=== PATIENT | male | born 1965 | race Caucasian/White ===

== ENCOUNTER → 2017-03-26 | Outpatient (CLI) | payer BC ==
[2017-03-26 11:54] LABS: Non-African American GFR(MDRD) 59 (>60 ml/min/1.73 sqM)
--- NOTE | 2017-03-26 14:29 | MR ---
EXAMINATION TYPE: MR lumbar spine wo/w con DATE OF EXAM: 03/26/2017 COMPARISON: NONE HISTORY: Low back pain TECHNIQUE: Multiplanar, multisequence images of the lumbar spine were acquired utilizing 15 mL intravenous Gadav ist gadolinium contrast. Post surgical fixation is seen of L4-L5 with pedicular screws and fixation rods. Grade 1 anterolisthe sis is present of L5 on S1. Type II Modic changes are seen of the endplates of L5-S1. L1-L2: Normal disc appearance without desiccation. No herniation, protrusion or disc bulging. No ca nal stenosis is present. Foramina are patent bilaterally. L2-L3: Small broad-based disc bulge is seen without neural foraminal narrowing or spinal canal stenos is. L3-L4: Small broad-based disc bulge is seen resulting in mild bilateral neural foraminal narrowing an d no evidence of spinal canal stenosis at this level. Minimal ligamentum flavum buckling is appreciat ed. L4-L5: Negative disc remains. A broad-based disc bulge is seen in combination with facet arthropathy resulting in mild bilateral neural foraminal narrowing. L5-S1: Intervertebral disc spacer is appreciated with removal of the [place] disc. At the site of post erior element surgical removal there is a focal area of fibrosis within the subcutaneous soft tissues that enhances measuring 3.1 x 4.0 x 1.6 cm in craniocaudal by transverse by anterior posterior dimen karey. There is extension into the epidural space at this level surrounding the posterior thecal sac a pproximately 180 degrees and abutting the right S1 nerve root without mass effect. This does not exte nd to touch the left S1 nerve root. Evaluation at the level of L4 is limited secondary to susceptibility artifact from hardware, however this does appear to be present at that level. No postsurgical fluid collection is identified. No resi dual or recurrent disc herniation. Paraspinal musculature atrophy is seen in the lower thoracic spine as well as postsurgical scarring in the subcutaneous tissues. IMPRESSION: 1. No residual or recurrent disc herniation. 2. Epidural fibrosis at L5 originating within the subcutaneous tissues at the site of posterior eleme nt removal and extending around the posterior thecal sac approximately 180 degrees abutting the right S1 nerve root without mass effect. 3. Grade 1 anterolisthesis of L5 on S1. 4. Lower paraspinal muscular atrophy.
== END | disposition home or self-care (01) ==
LOC: RADMRIMAIN 11:19
PROVIDERS: ATTEND Internal Medicine
DX: M43.17 Spondylolisthesis, lumbosacral region (principal); G12.8 Other spinal muscular atrophies and related syndromes; G96.19 Other disorders of meninges, not elsewhere classified
CPT/HCPCS: 82565; 72158; A9581

== ENCOUNTER → 2017-06-25 | Outpatient (CLI) | payer BC | END | disposition home or self-care (01) | LOC: LABPAT 14:38 | PROVIDERS: ATTEND Orthopaedic Surgery | DX: Z01.812 Encounter for preprocedural laboratory examination (principal) | CPT/HCPCS: 87070 ==

== ENCOUNTER → 2017-09-30 | Outpatient (CLI) | payer BC ==
[2017-09-30 07:57] LABS: Basophils % (A) 0 %; Eosinophils # (A) 0.3 k/uL (0-0.7); Eosinophils % (A) 4 %; HCT 40.9 % (39.0-53.0); HGB 13.1 gm/dL (13.0-17.5); Lymphocytes # (A) 1.3 k/uL (1.0-4.8); Lymphocytes % (A) 18 %; MCH 26.9 pg (25.0-35.0); Mean Platelet Volume 6.9; Monocytes # (A) 0.3 k/uL (0-1.0); Monocytes % (A) 5 %; Neutrophils # (A) 5.1 k/uL (1.3-7.7); Neutrophils % (A) 71 %; Platelet Count 284 k/uL (150-450); RBC 4.87 m/uL (4.30-5.90); RDW 13.1 % (11.5-15.5); WBC 7.2 k/uL (3.8-10.6)
[2017-09-30 08:02] LABS: INR 1.1 (<1.2); Partial Thromboplastin Time 24.5 sec (22.0-30.0); Prothrombin Time 10.6 sec (9.0-12.0)
[2017-09-30 08:27] LABS: Potassium 4.6 mmol/L (3.5-5.1)
== END | disposition home or self-care (01) ==
LOC: LABPAT 07:05
PROVIDERS: ATTEND Orthopaedic Surgery
DX: Z01.812 Encounter for preprocedural laboratory examination (principal); M16.11 Unilateral primary osteoarthritis, right hip; Z51.81 Encounter for therapeutic drug level monitoring; Z79.01 Long term (current) use of anticoagulants
CPT/HCPCS: 36415; 80051; 85025; 85610; 85730; 87070

== ENCOUNTER 2017-10-07 05:50 | Inpatient (IN) | payer BC ==
[2017-09-27 16:09] VITALS: BMI 46.3
--- NOTE | 2017-10-06 12:35 | HP ---
HISTORY AND PHYSICAL REASON FOR ADMISSION: Surgery scheduled for 10/07/2017 HISTORY OF PRESENT ILLNESS: Porfirio Lora is a 52-year-old patient seen with symptomatic right hip osteoarthritis. After treatment options were discussed, he elected to proceed with direct anterior right total hip arthroplasty. Consent regarding the procedure was obtained. Previous medical clearance had been obtained from his primary care physician, Dr. Coreas. PAST MEDICAL HISTORY: Hypertension. PAST SURGICAL HISTORY: Left total knee arthroplasty, low back surgery. MEDICATIONS: Catapres, Flexeril, Hyzaar, metoprolol, tramadol. ALLERGIES: None reported. SOCIAL HISTORY: A patient currently denies tobacco use. PHYSICAL EVALUATION: Physical examination of his right hip, he has limited range of motion with severe pain. Positive hip impingement sign. Straight leg raise negative. His distal neurovascular exam is intact. RADIOGRAPHS: Right hip radiographs revealed severe osteoarthritis. An MRI of the right hip revealed avascular necrosis as well as osteoarthritis. IMPRESSION: 1. Right hip osteoarthritis. 2. Hypertension. PLAN: Direct anterior right total hip arthroplasty. Surgery scheduled for 10/07/2017. MMODL / IJN: [id number] /
[~2017-10-07 05:50] MED LIST: ACETAMINOPHEN TAB 500 MG TAB PO ONE; DEXAMETHASONE SOD PHOSPHATE 10 MG/ML 1 ML VIAL IV ONE; HYDROmorphone 0.5 MG/0.5 ML SYRINGE IVP PRN; LACTATED RINGERS 1,000 ML IV SCH; MELOXICAM 7.5 MG TAB PO ONE; ONDANSETRON 4 MG/2 ML VIAL IVP ONE; TRANEXAMIC ACID 1,000 MG in SODIUM CHLORIDE 0.9% 50 ML IVPB ONE
[2017-10-07] MEDS ORDERED: LIDOCAINE 1% 20 ML VIAL (10MG/ML) FOR IV START INTRADERMA ONE (06:54)
[2017-10-07] MEDS ORDERED: ROPIVACAINE 246.25 MG, EPINEPHrine 0.5 MG, KETOROLAC 30 MG, cloNIDine HCL/PF 80 MCG, WA... MISCELLANE ONE ×5 (07:25)
[2017-10-07] MEDS ORDERED: LIDOCAINE 1% INJ 10MG/ML (20 ML MDV) ONE (07:29)
[2017-10-07] MEDS ORDERED: PROPOFOL 10 MG/ML 20 ML VIAL IV ONE (07:29)
[2017-10-07] MEDS ORDERED: fentaNYL (PF) 50 MCG/ML 2 ML AMP ONE (07:29)
[2017-10-07] MEDS ORDERED: TRANEXAMIC ACID 1,000 MG/10 ML VIAL ONE (07:29)
[2017-10-07] MEDS ORDERED: SODIUM CHLORIDE 0.9% 100 ML BAG ONE (07:29)
[2017-10-07] MEDS ORDERED: diphenhydrAMINE 50 MG/ML 1 ML VIAL ONE (07:29)
[2017-10-07] MEDS ORDERED: DEXAMETHASONE SOD PHOS (MDV) 100 MG/10 ML VIAL ONE (07:29)
[2017-10-07] MEDS ORDERED: MIDAZOLAM 2 MG/2 ML VIAL ONE (07:29)
[2017-10-07] MEDS ORDERED: ePHEDrine SULFATE/0.9% NACL/PF 50 MG/5 ML SYRINGE IV ONE (07:29)
[2017-10-07] MEDS ORDERED: ONDANSETRON 4 MG/2 ML VIAL ONE (07:29)
[2017-10-07] MEDS ORDERED: ceFAZolin 3,000 MG in SODIUM CHLORIDE 0.9% IRRIGATIO 3,000 ML IRRIGATION ONE (08:15)
[2017-10-07] MEDS ORDERED: LACTATED RINGERS 1,000 ML IV ONE (09:32)
[2017-10-07] MEDS ORDERED: NALOXONE 0.4 MG/ML 1 ML VIAL IV PRN (10:07)
[2017-10-07] MEDS ORDERED: HYDROcodone/APAP 7.5-325MG 1 EACH TAB PO PRN (10:07)
[2017-10-07] MEDS ORDERED: HYDROmorphone 0.5 MG/0.5 ML SYRINGE IVP PRN (10:07)
[2017-10-07] MEDS ORDERED: ONDANSETRON 4 MG/2 ML VIAL IVP PRN (10:07)
[2017-10-07] MEDS ORDERED: hydrOXYzine PAMOATE 25 MG CAP PO PRN (10:07)
[2017-10-07] MEDS ORDERED: MORPHINE SULFATE 4 MG/ML SYRINGE IVP PRN ×3 (10:07→10:20)
--- NOTE | 2017-10-07 10:07 | P.OP ---
Date of Procedure: 10/07/17 Preoperative Diagnosis: Right hip osteoarthritis Postoperative Diagnosis: Right hip osteoarthritis Procedure(s) Performed: Direct anterior right total hip arthroplasty Implants: 1. Depuy Corail KA size 13 standard collar press-fit femoral stem 2. Depuy Corail pinnacle 60 mm press-fit acetabular shell 3. Depuy Corail pinnacle acetabular polyethylene liner neutral 36 mm ID 60 mm OD 4. Biolox delta ceramic femoral head +5 36 mm Anesthesia: local, spinal Surgeon: Marcin Crump Carousel Attendant #1: Tima Vuong Estimated Blood Loss (ml): 300 Pathology: other (Femoral head) Condition: stable Disposition: PACU Indications for Procedure: 52-year-old patient seen with symptomatic right hip osteoarthritis. After having treatment options discussed, he elected to proceed with total hip arthroplasty. Operative Findings: See description of procedure Description of Procedure: The patient was taken to the operative suite. Patient underwent a spinal anesthetic by the department of anesthesia. Patient was then transferred to the [place] table. Patient was given preoperative IV antibiotics and TXA. Both lower extremities were placed in standard leg spars. The hip was then prepped and draped in the normal sterile orthopedic fashion. A standard anterior incision was made beginning 3 cm lateral and 1 cm distal to the ASIS extending 10 cm. Dissection was then carried down through the subcutaneous soft tissues down to the fascia overlying the tensor fascia tao. An incision was now made through the fascia. Careful dissection was taken down exposing the tensor fascia tao muscle. A Cobra retractor was now placed along the medial femoral neck and a second one along the lateral femoral neck. The venous circumflex vessels were now identified, cauterized and clipped. We identified the anterior hip capsule. An incision was made through the hip capsule along the lateral border. Tag sutures were then placed along the anterior capsule and lateral capsule. We then performed a capsulotomy. Retractors were now placed around the femoral neck itself. A Cobra retractor was now placed along the anterior acetabulum. Good exposure was now noted of the femoral head/neck complex. Residual labrum was debrided out. We placed the extremity into 3 turns of fine traction. We were then able to introduce a skid in between the femoral head and acetabulum. A placed a awl into the femoral head. We took 2 turns of traction off the extremity. Rotation was now released. The femoral head was then dislocated without difficulty. Additional releasing was performed of the capsule. The head was then reduced. All traction was released. A femoral neck cut was now made with a sagittal saw. It was completed with an osteotome at the lateral neck area. The femoral head was now removed without difficulty. There was advanced osteoarthritis of both the femoral head and acetabulum. The extremity was now rotated to 60 of external rotation. It was locked in position. Residual labrum was now debrided out. Serial reaming was performed of the acetabulum. Once we reached the appropriate size and a trial was position and fit nicely. The trial was removed and the wound was irrigated with pulse lavage mechanical irrigation. The appropriate size was now chosen opened and made available. It was introduced into the acetabulum without difficulty. The C-arm/fluoroscopy was now brought into the operative field. We made sure we had a true AP pelvic view. We now under direct C-arm/fluoroscopy introduced into the acetabular component with appropriate version and inclination. It was well seated and stable. The C-arm was pulled back. An appropriate liner was introduced and clicked into position. It was felt to be stable. At this point retractors were removed. The extremity was now placed into 120 external rotation with no traction. The leg was now dropped to the ground and adducted. Appropriate retractors were now positioned along the proximal femur. We also placed our femoral look into position. Additional capsular releasing was performed to gain access to the proximal femur. We now used a box osteotome. A canal finder was now utilized. Serial broaching was now performed until we reached the appropriate size with good overall rotational stability. Appropriate calcar planing was performed. A trial head/neck was placed into position. The hip was now reduced. The C-arm/fluoroscopy was brought back into the operative field. A spot film was obtained of the nonoperative hip. A spot film was obtained of the trial components. Overlays were performed, we noted good overall alignment and positioning for determining leg length. The C-arm/ fluoroscopy was pulled back. Retractors were repositioned and the hip was dislocated. The leg was again taken down to the ground and adducted. Appropriate retractors were repositioned as well as the femoral hook. All trial components were removed. The femoral implant was opened along with the femoral head. The wound was irrigated with pulse lavage mechanical irrigation. The femoral implant was introduced with good purchase and fixation noted. The femoral head was introduced with good positioning and fixation noted. Retractors were now removed. The hip was now reduced. There appeared be good positioning of the hip. This was confirmed under fluoroscopy and spot films were obtained to document that. A second gram of TXA was given. Bipolar cautery had been utilized intermittently through the procedure for hemostasis. The wound was irrigated copiously with pulse lavage mechanical irrigation. The soft tissues were infiltrated with local analgesic. The fascia was repaired with Vicryl suture. The subcutaneous soft tissues were repaired in layers with Vicryl suture. The skin was approximated with pernio/Dermabond. Sterile dressings were applied. Patient was then awakened, transferred to a bed and taken to recovery in stable condition. Rambo MCGUIRE assisted with the procedure.
[2017-10-07] MEDS ORDERED: SODIUM CHLORIDE 0.9% 1,000 ML IV ONE (10:45)
[2017-10-07] MEDS: traMADol 50 MG TAB PO SCH ×3 (12:41→22:00)
[2017-10-07] MEDS: LACTATED RINGERS 1,000 ML IV SCH (12:41)
[2017-10-07] MEDS ORDERED: CYCLOBENZAPRINE 10 MG TAB PO PRN (13:12)
[2017-10-07] MEDS ORDERED: ALPRAZolam 1 MG TAB PO PRN (13:12)
[2017-10-07] MEDS ORDERED: SENNOSIDES-DOCUSATE SODIUM 1 EACH TAB PO SCH (21:00)
--- NOTE | 2017-10-07 23:09 | CONS ---
CONSULTATION REASON FOR CONSULTATION: Advice regarding sleep apnea and other medical issues requested by Dr. Crump. HISTORY OF PRESENT ILLNESS: This 52-year-old gentleman with a past history of sleep apnea, history of back pain, history of cholecystitis, anxiety being followed by Dr. Coreas in the outpatient setting underwent direct anterior right total hip joint arthroplasty by Dr. Crump. There is no history of any chest pain, no palpitations, headache, loss of consciousness, nausea and diarrhea, fever, rigors. PAST MEDICAL: Sleep apnea, history of back surgery, cholecystectomy, anxiety, DJD. MEDICATIONS: Prior to admission include home medications: 1. Ultram 50 mg q.6h p.r.n. 2. Naprosyn 500 mg p.o. b.i.d. 3. Lopressor 25 mg p.o. daily. 4. Losartan hydrochlorothiazide 100/25 p.o. daily. 5. [place] 10 mg 1 tablet every 6 hours p.r.n. 6. Flexeril 10 mg daily p.r.n. 7. Aspirin 325 mg daily p.r.n. 8. Xanax 2 mg b.i.d. p.r.n. ALLERGIES: None. FAMILY HISTORY: History of pancreatic cancer in the family. SOCIAL HISTORY: No history of smoking. No history of alcohol intake. REVIEW OF SYSTEMS: ENT: No diminished vision. No diminished hearing. Cardiovascular: No angina or palpitations. Respiratory: No cough or hemoptysis. GI no nausea or vomiting. no dysuria. Nervous system: No numbness, weakness. Allergy/Immunology: No asthma or hayfever. Musculoskeletal as mentioned earlier. HEMATOLOGY/Oncology: No history of anemia. Endocrine: No history of diabetes or hypothyroidism. Constitutional: As mentioned earlier. Dermatology: Negative. Psychiatric: As mentioned earlier. EXAMINATION: Alert and oriented x3. Pulse is 69, blood pressure 111/75, respiratory 20, temp is normal. Pulse ox 98% on 2 L. HEENT is conjunctivae normal. Oral mucosa moist. Neck is no jugular venous distention. No carotid bruit. No lymph node enlargement. Cardiovascular S1-S2 muffled. No S3, no S4. Respiratory: Breath sounds diminished in the bases. No rhonchi and no crackles. ABDOMEN: Soft, nontender. Legs status post surgery. Central nervous system: Higher functions as mentioned earlier. Moves all four extremities. No focal deficits. Lymphatics: No lymph nodes palpable in the neck, axillae or groin. Skin no ulcer, rash or bleeding. LABS: Recently done labs: Creatinine 1.28. Otherwise drug screen is positive for urine, alcohol and benzodiazepines in 2016. ASSESSMENT: 1. Status post right total hip joint arthroplasty. 2. Rule out chronic kidney disease stage 3. 3. History of sleep apnea. 4. History of degenerative joint disease. 5. History of cholecystectomy. 6. History of anxiety. 7. Hypertension. RECOMMENDATIONS AND DISCUSSION: In this 52-year-old gentleman who presented after surgery, at this time I recommend to continue the current medications, continue symptomatic treatment. Otherwise I would recommend resume the home medications. Monitor blood pressure closely. Otherwise I would also recommend repeat labs to rule out the possibility of any active kidney disease at this time. We will follow the patient closely with you and the patient may be asked to follow up with the primary physician closely after discharge. Thank you Dr. Crump for letting us participate in the care of this patient. MMROSAL / JUANN: [id number] /
[2017-10-08] MEDS: LACTATED RINGERS 1,000 ML IV SCH ×2 (01:30→09:15)
[2017-10-08] MEDS: HYDROcodone/APAP 7.5-325MG 1 EACH TAB PO PRN ×2 (01:38→08:15)
[2017-10-08 07:39] VITALS: BP 130/82; PULSE 80; RESP 16; TEMP 98.2
[2017-10-08 07:58] LABS: Basophils % (A) 0 %; Eosinophils % (A) 0 %; HCT 36.2 % (39.0-53.0); HGB 11.8 gm/dL (13.0-17.5); Lymphocytes # (A) 1.1 k/uL (1.0-4.8); Lymphocytes % (A) 7 %; MCH 27.2 pg (25.0-35.0); MCHC 32.6 g/dL (31.0-37.0); MCV 83.6 fL (80.0-100.0); Mean Platelet Volume 7.1; Monocytes # (A) 0.7 k/uL (0-1.0); Monocytes % (A) 4 %; Neutrophils # (A) 12.9 k/uL (1.3-7.7); Neutrophils % (A) 87 %; Platelet Count 317 k/uL (150-450); RBC 4.34 m/uL (4.30-5.90); WBC 14.8 k/uL (3.8-10.6)
--- NOTE | 2017-10-08 08:17 | XR ---
Fluoroscopy INDICATION: Pain FINDINGS: Fluoroscopy time: 35 seconds. Images obtained: 1. IMPRESSIONS: 1. Documentation of fluoroscopy.
[2017-10-08 08:21] LABS: Anion Gap 7 mmol/L; Blood Urea Nitrogen 18 mg/dL (9-20); Calcium 9.5 mg/dL (8.4-10.2); Carbon Dioxide 33 mmol/L (22-30); Chloride 98 mmol/L (98-107); Glucose 132 mg/dL (74-99); Potassium 4.8 mmol/L (3.5-5.1); Sodium 138 mmol/L (137-145)
[2017-10-08] MEDS ORDERED: FAMOTIDINE 20 MG TAB PO SCH (09:00)
[2017-10-08] MEDS ORDERED: ENOXAPARIN 30 MG/0.3 ML SYRINGE SQ SCH (09:00)
[2017-10-08] MEDS ORDERED: MELOXICAM 7.5 MG TAB PO SCH (09:00)
[2017-10-08] MEDS ORDERED: METOPROLOL TARTRATE 25 MG TAB PO SCH (09:00)
[2017-10-08] MEDS ORDERED: LOSARTAN-HCTZ 50-12.5 MG 1 EACH TAB PO SCH (09:00)
[2017-10-08] MEDS: traMADol 50 MG TAB PO SCH ×2 (09:18→13:11)
--- NOTE | 2017-10-08 10:15 | P.DS ---
Providers Date of admission: 10/07/17 05:50 Expected date of discharge: 10/08/17 Attending physician: Marcin Crump Consults: 10/07/17 10:07 Consult Physician Routine Consulting Provider: Pedro Alvarado Consult Reason/Comments: Medical management Do you want consulting provider notified?: Yes Primary care physician: Lyudmila So [facility] Course: Date of admission: 10/07/2017 Date of discharge: 10/08/2017 Admission diagnosis: Status post right total hip arthroplasty Discharge diagnosis: Same Attending physician: Dr. Crump Surgical procedures: Right total hip arthroplasty Brief history: Patient is a 52-year-old male with a history of progressive primary right hip osteoarthritis. At this point patient has failed conservative treatment measures and has opted to proceed with a elective right total hip arthroplasty. Hospital course: Details of patient's surgery can be found in operative report. Patient tolerated the procedure well and was subsequently transported to orthopedic floor. Patient's orthopeidc and medical care was provided daily. Patient had daily laboratory tests performed for evaluation of overall blood counts. Patient had daily physical therapy to include strengthening range of motion as well as education with walker ambulation. Patient was treated with Lovenox for their postoperative DVT prophylaxis during their inpatient stay. Patient was noted to have a relatively uneventful postoperative course. Patient reported satisfactory pain control with oral pain medications by postoperative day 0. Patient showed satisfactory progress with physical therapy. Patient moved steadily through the program and had no difficulty meeting the goals by postoperative day 1. Given patient's otherwise satisfactory course and having met physical therapy goals, plan is to discharge patient home on postoperative day 1. Discharge condition/disposition: Patient will be discharged home in stable condition. Discharge medications: Instructions are given on resumption of patient's normal daily medications per primary care recommendation, in addition patient will be prescribed Xarelto 10 mg. Discharge instructions: 1. Wound care and infection precautions, keep incision dry and covered while showering, no lotions, creams, moisturizers. No soaking, tubs, pools, hottubs. Do not scrub over the incision. 2. Weight-bear as tolerated with walker / cane until follow-up. 3. Ice and elevate when necessary. Do not exceed 20 minutes per hour with ice pack. 4. Utilize compression sleeve until seen at first follow up appointment. 5. Visiting nursing care. 6. Home physical therapy. 7. Pain meds and anticoagulants per prescription. 8. Pain medication has potential to cause constipation. Increase oral fluid and fiber intake. Contact primary care provider if you have not had a bowel movement within 48 hours after discharge 9. No anti-inflammatory medication until discussed at first post operative visit, this including Motrin, Aleve, Mobic, Diclofenac. 10. Follow up in office at 2 weeks postop with Rambo Vuong PA-C 11. Follow up with your primary care doctor 7-10 days after discharge. 12. Contact [facility] with any questions, . Procedures: Right total hip arthroplasty Patient Condition at Discharge: Good Plan - Discharge Summary Discharge Rx Participant: No New Discharge Prescriptions: New Rivaroxaban [Xarelto] 10 mg PO DAILY #28 tab No Action Cyclobenzaprine [Flexeril] 10 mg PO TID PRN PRN Reason: Muscle Spasm Metoprolol Tartrate [Lopressor] 25 mg PO DAILY Losartan/Hydrochlorothiazide [Losartan-Hctz 100-25 mg Tab] 1 tab PO DAILY Aspirin 325 mg PO DAILY Hydrocodone/Acetaminophen [[place] 10-325] 1 - 2 each PO Q6H PRN #60 tab PRN Reason: Pain traMADol HCl [Ultram] 50 mg PO Q6H PRN #40 tab PRN Reason: Pain ALPRAZolam [Xanax] 2 mg PO BID PRN PRN Reason: Anxiety Discharge Medication List Cyclobenzaprine [Flexeril] 10 mg PO TID PRN 02/28/16 [History] Losartan/Hydrochlorothiazide [Losartan-Hctz 100-25 mg Tab] 1 tab PO DAILY [History] Metoprolol Tartrate [Lopressor] 25 mg PO DAILY 02/28/16 [History] Aspirin 325 mg PO DAILY 07/08/17 [History] Hydrocodone/Acetaminophen [[place] 10-325] 1 - 2 each PO Q6H PRN #60 tab 07/09/17 [Rx] traMADol HCl [Ultram] 50 mg PO Q6H PRN #40 tab 07/09/17 [Rx] ALPRAZolam [Xanax] 2 mg PO BID PRN 10/07/17 [History] Rivaroxaban [Xarelto] 10 mg PO DAILY #28 tab 10/08/17 [Rx] Follow up Appointment(s)/Referral(s): [facility], [NON-STAFF] - Judah Coreas MD [Primary Care Provider] - 10/15/17 10:40 am Marcin Crump DO [Doctor of Osteopathic Medicine] - 10/23/17 1:50 pm Patient Instructions/Handouts: Anterior Hip Replacement (DC) Activity/Diet/Wound Care/Special Instructions: Orthopedic Discharge Instructions: 1. Wound care and infection precautions, keep incision dry and covered while showering, no lotions, creams, moisturizers. No soaking, pools, hot tubs. Do not scrub over incision. 2. Weight-bear as tolerated with walker / cane until follow-up. 3. Ice and elevate when necessary. Do not exceed 20 minutes per hour with ice pack. 4. Utilize compression sleeve until seen at first follow up appointment. 5. Visiting nursing care. 6. Home physical therapy. 7. Pain meds and anticoagulants per prescription. 8. Pain medication has potential to cause constipation. Increase oral fluid and fiber intake. Contact primary care provider if you have not had a bowel movement within 48 hours after discharge. 9. No anti-inflammatory medication until discussed at first post operative visit, this including Motrin, Aleve, Mobic, Diclofenac. 10. Follow up in office at 2 weeks postop with Rambo Vuong PA-C 11. Follow up with your primary care doctor 7-10 days after discharge. 12. Contact [facility] with any questions, . Discharge Disposition: HOME WITH HOME HEALTH SERVICES
--- NOTE | 2017-10-08 12:51 | P.PN ---
Subjective Progress Note Date: 10/08/17 Principal diagnosis: Status post right total hip arthroplasty Patient is seen today resting in his hospital bed, he appears comfortable. He was visualized working with physical therapy and ambulating, he is doing very well. He denies any headaches, lightheadedness, chest pain or shortness of breath. Objective - Vital Signs Vital signs: Vital Signs Temp 98.2 F 10/08/17 07:00 Pulse 80 10/08/17 07:00 Resp 16 10/08/17 07:00 BP 130/82 10/08/17 07:00 Pulse Ox 92 L 10/08/17 08:13 Intake & Output 10/07/17 10/08/17 10/08/17 18:59 06:59 18:59 Intake Total 2776 1280 120 Output Total 700 Balance 2076 1280 120 Weight 138.346 kg Intake: IV 2276 640 Lactated Ringers 1,000 ml 640 @ 80 mls/hr IV .[id number] TAD Rx#:[id number] Intake, IV Titration 640 Amount Lactated Ringers 1,000 ml 640 @ 80 mls/hr IV .[id number] TAD Rx#:[id number] Oral 500 120 Output: Urine 400 Estimated Blood Loss 300 Other: Voiding Method Toilet Urinal # Voids 1 - Exam Right lower extremity: Incision is clean, dry, and intact. The prineo tape is in good condition. There is minimal soft tissue swelling and ecchymosis surrounding the medial and lateral aspects of the incision. Calf is soft, no tenderness with palpation. Plantar flexion, dorsiflexion, EHL, FHL are intact. Sensory exam to light touch throughout the extremity is intact, dorsal pedis pulses 2+. - Labs CBC & Chem 7: 10/08/17 07:32 10/08/17 07:32 Labs: Abnormal Lab Results - Last 24 Hours (Table) 10/08/17 10/08/17 Range/Units 07:32 07:32 WBC 14.8 H (3.8-10.6) k/uL Hgb 11.8 L (13.0-17.5) gm/dL Hct 36.2 L (39.0-53.0) % Neutrophils # 12.9 H (1.3-7.7) k/uL Carbon Dioxide 33 H (22-30) mmol/L Glucose 132 H (74-99) mg/dL Assessment and Plan Plan: Assessment: 1. Postop day 1 status post right total hip arthroplasty Plan: 1. Pain control, continue on oral medication 2. GI and DVT prophylaxis, we'll discharge home on Xarelto 10 mg once a day 3. Daily dressing changes/ice the hip 4. Home therapy and nursing after discharge 5. Medical recommendations 6. Discharge planning: Patient will be discharged home today Time with Patient: Less than 30
--- NOTE | 2017-10-09 19:02 | P.PN ---
Subjective Progress Note Date: 10/08/17 Progress note being dictated for Dr. Armas Interval history: This a 52-year-old gentleman status post right total hip joint arthroplasty. Continues to do well. Up with physical therapy. Denies lightheadedness dizziness or focal deficits. Good diet intake with no nausea vomiting. No bowel movement. Passing flatus. Blood pressure controlled. Denies chest pain, palpitations or increasing shortness of breath. Pain controlled. Objective - Vital Signs Vital signs: Vital Signs Temp 98.2 F 10/08/17 07:00 Pulse 80 10/08/17 07:00 Resp 16 10/08/17 07:00 BP 130/82 10/08/17 07:00 Pulse Ox 92 L 10/08/17 08:13 Intake & Output 10/07/17 10/08/17 10/08/17 18:59 06:59 18:59 Intake Total 2776 1280 120 Output Total 700 Balance 2076 1280 120 Weight 138.346 kg Intake: IV 2276 640 Lactated Ringers 1,000 ml 640 @ 80 mls/hr IV .[id number] TAD Rx#:[id number] Intake, IV Titration 640 Amount Lactated Ringers 1,000 ml 640 @ 80 mls/hr IV .[id number] TAD Rx#:[id number] Oral 500 120 Output: Urine 400 Estimated Blood Loss 300 Other: Voiding Method Toilet Urinal # Voids 1 - Exam PHYSICAL EXAM: VITAL SIGNS: As above GENERAL: Sitting up in chair, no acute distress HEENT: Conjunctivae normal. eyes normal. Oral mucosa moist NECK: No JVD. No thyroid enlargement. No LNs CARDIOVASCULAR: S1, S2 muffled. No murmur RESPIRATION: Breath sounds diminished in the bases. No rhonchi or crackles. No bronchial breathing. ABDOMEN: Soft, nontender . No guarding. no masses palpable.Bowel sounds heard. LEGS: Status post surgery PSYCHIATRY: Alert and oriented -3, mood and affect normal. NERVOUS SYSTEM: Cranial N 2-12 grossly normal. Moves all 4 limbs. No focal deficits Skin: no ulcer no rash - Labs CBC & Chem 7: 10/08/17 07:32 10/08/17 07:32 Labs: Abnormal Lab Results - Last 24 Hours (Table) 10/08/17 10/08/17 Range/Units 07:32 07:32 WBC 14.8 H (3.8-10.6) k/uL Hgb 11.8 L (13.0-17.5) gm/dL Hct 36.2 L (39.0-53.0) % Neutrophils # 12.9 H (1.3-7.7) k/uL Carbon Dioxide 33 H (22-30) mmol/L Glucose 132 H (74-99) mg/dL Assessment and Plan Assessment: 1. Status post right total hip arthroplasty 2. Rule out chronic kidney disease stage III, further workup outpatient with PCP 3. Sleep apnea 4. Degenerative joint disease 5. Hypertension Plan: Continue on current medication regime ,monitoring and symptomatic treatment. Pain management and anticoagulation as per orthopedics. Discharge planning in progress as per orthopedic surgery today. Follow-up with PCP in 1 week. Repeat labs outpatient to rule out possibility of any active kidney disease. Further recommendations to follow. The impression and plan of care has been dictated as directed. : I performed a history and examination of this patient, discussed the same with the dictator. I agree with the dictator's note ,documented as a scribe. Any additional findings or plans will be noted.
== END 2017-10-08 13:44 | disposition home health service (06) | DRG 470 ==
LOC: 2ORMAIN 05:50 → 3SUR 10:05
PROVIDERS: ADMIT Orthopaedic Surgery; ATTEND Orthopaedic Surgery
PROC: 0SR904A Replacement of Right Hip Joint with Ceramic on Polyethylene Synthetic Substitute, Uncemented, Open Approach (ICD-10-PCS; principal; 2017-10-07 07:30)
DX: M16.11 Unilateral primary osteoarthritis, right hip (principal); M87.9 Osteonecrosis, unspecified; G47.30 Sleep apnea, unspecified; I10 Essential (primary) hypertension; Z80.0 Family history of malignant neoplasm of digestive organs; Z90.49 Acquired absence of other specified parts of digestive tract; Z96.652 Presence of left artificial knee joint; Z79.82 Long term (current) use of aspirin; Z79.891 Long term (current) use of opiate analgesic; Z79.899 Other long term (current) drug therapy; F41.9 Anxiety disorder, unspecified; R94.4 Abnormal results of kidney function studies
CPT/HCPCS: 73501; 80048; 85025; 86850; 86900; 86901; 88300; 94760

== ENCOUNTER → 2018-03-17 | Outpatient (CLI) | payer BC ==
[2018-03-17 13:23] VITALS: PULSE 91; RESP 16
[2018-03-17 13:24] VITALS: BP 181/99
--- NOTE | 2018-03-17 14:32 | P.PAINCN ---
History of Present Illness - Reason for Consult Consult date: 03/17/18 - History of Present Illness This is 53 years old male with a chronic history of severe low back, pain started more than 15 years ago, and he had lumbar laminectomy and fusion surgery , and he did fairly well until 2 years ago, he started complaining of severe low back pain, with radiation to the lower extremity associated with numbness and tingling sensation, he had another lumbar laminectomy and fusion surgery done 2 years, and he reported that he had no benefit from the surgery, the pain is continuous and increases with any activity, radiated to the right buttock area and also associated with numbness and tingling in the lower extremities, he denies any motor or sensory deficits he denies any change in the movement on urination, and no fever or night sweats, currently is getting pain medication from his primary care, and the current pain medication helping to some degree, but the pain interfering with his quality of life, he denies any side effects of the medication Past Medical History Past Medical History: Hypertension, Sleep Apnea/CPAP/BIPAP Additional Past Medical History / Comment(s): HE ALSO HAS HX OF INTERMITTENT HEAVY L SIDED CHEST PAIN X 1 WEEK WITH DIAPHORESIS AND EPISODES OF SOB. PT HAS A CPAP MACHINE AT HOME WHICH HE HAS NOT USED IN 7-8 YRS BECAUSE HE LOST ALOT OF WT AND FELT IT WAS NO LONGER NEEDED.. HE HAS BEEN NOTICING MORE ISSUES RE HIS SLEEP APNEA RECENTLY AND HIS PHYSICIAN IS HAVING HIM DO SLEEP STUDIES AGAIN. PT HAD AN TN 9 YRS AGO. Last Myocardial Infarction Date:: 2004 History of Any Multi-Drug Resistant Organisms: None Reported Past Surgical History: Back Surgery, Cholecystectomy, Orthopedic Surgery Additional Past Surgical History / Comment(s): CARDIAC CATH 9 YRS AGO AND UNABLE TO PERFORM PTCA BECAUSE OF LESION POSITION SO HE WAS TX MEDICALLY. HE IS A PT OF DR. DAVENPORT. Left Total Knee - June 2017. Right Total Hip - September. Back surgery x 2 - 15 years ago and January 2016 Past Anesthesia/Blood Transfusion Reactions: Postoperative Nausea & Vomiting ( PONV) Additional Past Anesthesia/Blood Transfusion Reaction / Comm: NEVER RECIEVED BLOOD. Past Psychological History: Anxiety Smoking Status: Never smoker Past Alcohol Use History: None Reported Past Drug Use History: None Reported - Past Family History Father Family Medical History: Cancer Additional Family Medical History / Comment(s): FATHER IN HIS 50'S OF UNKNOWN CAUSES. Mother Family Medical History: Cancer Additional Family Medical History / Comment(s): MOTHER OF PANCREATIC CA IN HER 50'S Brother(s) Family Medical History: Diabetes Mellitus Sister(s) Family Medical History: Cancer Additional Family Medical History / Comment(s): BREAST CA. Medications and Allergies Home Medications Medication Instructions Recorded Confirmed Type Cyclobenzaprine [Flexeril] 10 mg PO TID 02/28/16 03/17/18 History Losartan/Hydrochlorothiazide 1 tab PO DAILY 02/28/16 03/17/18 History [Losartan-Hctz 100-25 mg Tab] ALPRAZolam [Xanax] 2 mg PO BID PRN 10/07/17 03/17/18 History Hydrocodone/Acetaminophen [[place] 1 - 2 each PO TID 03/17/18 03/17/18 History 10-325] busPIRone HCL [Buspar] 7.5 mg PO BID PRN 03/17/18 03/17/18 History traMADol HCl [Ultram] 50 mg PO BID 03/17/18 03/17/18 History Allergies Allergy/AdvReac Type Severity Reaction Status Date / Time No Known Allergies Allergy Verified 03/17/18 12:58 Physical Exam Vitals: Vital Signs Pulse Resp BP Pulse Ox 03/17/18 13:05 91 16 181/99 97 Intake and Output 03/16/18 03/17/18 03/17/18 22:59 06:59 14:59 Other: Weight 141.067 kg Social history : not smoker , NO ETOH , NO Illegal drugs use . Review of Systems : 1- Constitutional : no chills , no fever , no night sweats , 2- Ears : no ear discharge , no change in hearing 3-Nose, Mouth ,Throat ; no bleeding gums, no sore throat , no epistaxis , 4-Cardiovascular : Denies chest pain, , no orthopnea , no palpitation 5-Respiratory : Denies cough , no dyspnea , no hemoptysis 6-Gastrointestinal :, no change in bowel habits , no coffee- ground emesis . 7-Genitourinary : No hematuria , no discharge , no incontinence, 8-Musculoskeletal : No gait dysfunction , report low back pain , 9- Neurological : no ataxia , no tremor , no sezure , 10-Psychatric , no suicidal ideation no hallucination 11- Endocrine : no cold intolerence , no polyuria , no polydypsia , 12-Hematologic : no easy bleeding , no easy brusing , 13-Allergic / immunology : no angioedema , no wheezing ,no allergic rhinitis 14-Integumentary : no brttle nails , no change hair / nails , no foot/leg ulcers . Physical Examinations : 1-Constitutional : Cooperative , not in acute distress . 2-HEENT : nech ; supple , no Lymphadenopathy , no Thyromegaly , :eyes , no icterus, no photophobia . ENT : , normal oropharynx , no Thrush 3- Respiratory : Chest clear to auscultations Bilaterally , no wheezing . 4- Cardiovascular : regular rate and rhythem , S1 , S2 , no S3 , no S4. 5- Gastrointestinal: abdomen soft no tenderness , no organomegally . 6- Genitourinary : Defferred . 7-Integumentary : No cellulitis , no ulcers , normal skin turgor , no cyanotic . 8- neurologic : Cranial nerve II to XII intact , no focal neurological deffecit 9-psychatric : alert , oriented X 3 , appropriate affect , intact judgment and insight . 10-Lymphatic : no Lymphadenopathy. 11- musculoskeltal: normal gait Lumber spine moter stegnth lower extremities ,thigh and legs 5/5 Right side , 5/5 Left side deep tendon reflexes : normal Knee Jerk , normal ankle Jerk positive lumber facet Loading Test Range of motion of the lumbar spine Flexion 30 degrees, extension 10 degrees strait leg raising test , positive at degree Fabere test positive RT and positive LT . Sever tenderness over the Sacroiliac joint on the R sides Results Comments: MRI of the lumbar spine multilevel lumbar fusion Assessment and Plan Plan: Assessment and plan= 1-right sacroiliitis. 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 Patient could benefit from right-sided sacroiliac joint steroid injection x2 with reevaluation after second injection, if he continue to have pain, then we will consider doing a caudal epidural with lysis of epidural adhesions Patient could benefit from Lyrica 50 mg twice a day. Time with Patient: Greater than 30 PQRS Measure Charge Sheet Measure #130: Documentation of Current Meds in Medical Chart: Patient's medications documented in chart Measure #226: Tobacco Use: Screen & Cessation Intervention: Pt not a tobacco user Measure #111: Pneumonia Vaccination: Pneumococcal vaccine NOT administered or previously given Measure #47: Advance Care Plan: Advance care planning discussed & documented, pt chose/unable to give Measure #412: Opioid Treatment Agreement: No documentation of signed opioid treatment agreement Measure #408: Opioid Therapy Follow-up Evaluation: Patient had NO f/u eval minimum every 3 months during opioid therapy Measure #317: Preventitive Care & Scrn High Bld Press & F/U: Pre-hypertensive or hypertensive BP documented, pt will f/u with PCP Measure #128: Body Mass Index (BMI) Screening & Follow-up: BMI documented ABOVE normal parameters - f/u documented Measure #131: Pain Assessment & Follow-up: Pain positive & plan documented, Follow-up scheduled Measure #431: Unhealthy Alcohol Use Preventative Care & Scrn: Patient not identified as an unhealthy alcohol user PQRS Narrative: Smoking Status Never smoker Do You Want the Pneumonia No Vaccine AT THIS TIME? Blood Pressure 181/99 Pain Intensity [Bilateral 5 Lower Back] Scale Used Numeric (1 - 10) Hx Alcohol Use (MH) Yes: occasional beer Home Medications: Ambulatory Orders Cyclobenzaprine [Flexeril] 10 mg PO TID 02/28/16 Losartan/Hydrochlorothiazide [Losartan-Hctz 100-25 mg Tab] 1 tab PO DAILY ALPRAZolam [Xanax] 2 mg PO BID PRN 10/07/17 Hydrocodone/Acetaminophen [[place] 10-325] 1 - 2 each PO TID 03/17/18 busPIRone HCL [Buspar] 7.5 mg PO BID PRN 03/17/18 traMADol HCl [Ultram] 50 mg PO BID 03/17/18
== END | disposition home or self-care (01) ==
LOC: PNWHC3 12:50
PROVIDERS: ATTEND Specialist
DX: M96.1 Postlaminectomy syndrome, not elsewhere classified (principal); M46.1 Sacroiliitis, not elsewhere classified; I10 Essential (primary) hypertension; F41.9 Anxiety disorder, unspecified; Z90.49 Acquired absence of other specified parts of digestive tract; Z79.899 Other long term (current) drug therapy; Z79.891 Long term (current) use of opiate analgesic; Z98.890 Other specified postprocedural states
CPT/HCPCS: 99211

== ENCOUNTER 2018-03-21 18:16 | Inpatient (IN) | payer BC ==
[2018-03-21 18:43] LABS: Basophils # (A) 0.1 k/uL (0-0.2); Basophils % (A) 1 %; Eosinophils # (A) 0.3 k/uL (0-0.7); Eosinophils % (A) 3 %; HCT 46.7 % (39.0-53.0); Lymphocytes # (A) 1.8 k/uL (1.0-4.8); Lymphocytes % (A) 16 %; MCH 27.1 pg (25.0-35.0); MCHC 32.2 g/dL (31.0-37.0); MCV 84.4 fL (80.0-100.0); Mean Platelet Volume 6.8; Monocytes # (A) 0.5 k/uL (0-1.0); Monocytes % (A) 4 %; Neutrophils # (A) 8.6 k/uL (1.3-7.7); Neutrophils % (A) 75 %; Platelet Count 290 k/uL (150-450); RBC 5.54 m/uL (4.30-5.90); RDW 15.6 % (11.5-15.5); WBC 11.4 k/uL (3.8-10.6)
--- NOTE | 2018-03-21 18:45 | ED ---
General Adult HPI - General Chief complaint: Chest Pain Stated complaint: Chest Pain Time Seen by Provider: 03/21/18 18:19 Source: patient, EMS, RN notes reviewed, old records reviewed Mode of arrival: EMS Limitations: no limitations - History of Present Illness Initial comments: 53-year-old presenting for evaluation of left-sided chest pain and generally feeling unwell. Symptoms have been over the past 5 days. His had some nausea, no significant vomiting. Describes left-sided chest pain. He also describes some lightheadedness. Patient does have history of CAD status post PR approximately 10 years ago. Denies significant abdominal pain or denies fever or chills. Denies cough. He has had some dyspnea. Denies lower extremity swelling or edema. Patient also states that his thought processes not being clear he's felt somewhat confused and cloudy. Patient given aspirin and nitroglycerin by EMS prior to arrival - Related Data Home Medications Medication Instructions Recorded Confirmed Cyclobenzaprine [Flexeril] 10 mg PO TID 02/28/16 03/21/18 Losartan/Hydrochlorothiazide 1 tab PO DAILY 02/28/16 03/21/18 [Losartan-Hctz 100-25 mg Tab] ALPRAZolam [Xanax] 2 mg PO BID PRN 10/07/17 03/21/18 Hydrocodone/Acetaminophen [[place] 1 tab PO TID PRN 03/17/18 03/21/18 10-325] traMADol HCl [Ultram] 50 mg PO BID 03/17/18 03/21/18 Allergies Allergy/AdvReac Type Severity Reaction Status Date / Time No Known Allergies Allergy Verified 03/21/18 18:35 Review of Systems ROS Statement: Those systems with pertinent positive or pertinent negative responses have been documented in the HPI. ROS Other: All systems not noted in ROS Statement are negative. Past Medical History Past Medical History: Hypertension, Myocardial Infarction (PR), Sleep Apnea/CPAP /BIPAP Additional Past Medical History / Comment(s): HE ALSO HAS HX OF INTERMITTENT HEAVY L SIDED CHEST PAIN X 1 WEEK WITH DIAPHORESIS AND EPISODES OF SOB. PT HAS A CPAP MACHINE AT HOME WHICH HE HAS NOT USED IN 7-8 YRS BECAUSE HE LOST ALOT OF WT AND FELT IT WAS NO LONGER NEEDED.. HE HAS BEEN NOTICING MORE ISSUES RE HIS SLEEP APNEA RECENTLY AND HIS PHYSICIAN IS HAVING HIM DO SLEEP STUDIES AGAIN. PT HAD AN PR 9 YRS AGO. Last Myocardial Infarction Date:: 2004 History of Any Multi-Drug Resistant Organisms: None Reported Past Surgical History: Back Surgery, Cholecystectomy, Orthopedic Surgery Additional Past Surgical History / Comment(s): CARDIAC CATH 9 YRS AGO AND UNABLE TO PERFORM PTCA BECAUSE OF LESION POSITION SO HE WAS TX MEDICALLY. HE IS A PT OF DR. DAVENPORT. Left Total Knee - June 2017. Right Total Hip - September. Back surgery x 2 - 15 years ago and January 2016 Past Anesthesia/Blood Transfusion Reactions: Postoperative Nausea & Vomiting ( PONV) Additional Past Anesthesia/Blood Transfusion Reaction / Comment(s): NEVER RECEIVED BLOOD. Past Psychological History: Anxiety Smoking Status: Never smoker Past Alcohol Use History: Occasional Past Drug Use History: None Reported - Past Family History Father Family Medical History: Cancer Additional Family Medical History / Comment(s): FATHER IN HIS 50'S OF UNKNOWN CAUSES. Mother Family Medical History: Cancer Additional Family Medical History / Comment(s): MOTHER OF PANCREATIC CA IN HER 50'S Brother(s) Family Medical History: Diabetes Mellitus Sister(s) Family Medical History: Cancer Additional Family Medical History / Comment(s): BREAST CA. General Exam Limitations: no limitations General appearance: alert, in no apparent distress Head exam: Present: atraumatic, normocephalic Eye exam: Present: normal appearance, PERRL ENT exam: Present: normal exam, normal oropharynx Neck exam: Present: normal inspection. Absent: tenderness, meningismus Respiratory exam: Present: normal lung sounds bilaterally. Absent: respiratory distress, wheezes Cardiovascular Exam: Present: regular rate, normal rhythm GI/Abdominal exam: Present: soft. Absent: distended, tenderness, guarding Extremities exam: Present: normal inspection, normal capillary refill. Absent: pedal edema, calf tenderness Neurological exam: Present: alert, oriented X3, CN II-XII intact. Absent: motor sensory deficit Skin exam: Present: warm, intact, diaphoretic. Absent: cyanosis Course Vital Signs 03/21/18 03/21/18 03/21/18 18:19 18:24 19:09 Temperature 98.7 F 99.0 F Pulse Rate 105 H 98 92 Respiratory 18 18 18 Rate Blood Pressure 122/62 122/62 127/70 O2 Sat by Pulse 94 L 93 L 95 Oximetry 03/21/18 03/21/18 20:07 21:32 Temperature Pulse Rate 88 94 Respiratory 18 18 Rate Blood Pressure 124/67 132/76 O2 Sat by Pulse 95 95 Oximetry EKG Findings - EKG Comments: EKG Findings:: EKG: Sinus rhythm, left extremity deviation, right bundle branch block, rate of 99, W[place] interval 148, QRS duration 164, QTC 406, no ST segment elevation Medical Decision Making - Medical Decision Making 53-year-old male presents with 5 days of bilateral upper chest pain. Pain as described as atypical. However patient has had previous PR and he has significant risk factors. EKG shows right bundle branch block, this is new compared to old EKG. Workup in the emergency department reveals normal chest x- ray, white blood cell count mildly elevated 11.4, hemoglobin is 15 which is stable. D-dimer is elevated and CT angiography is obtained. This is negative for pulmonary embolism. There is a 4 x 1 cm thoracic aneurysm. Electrolytes reveal some mild hyponatremia and hypokalemia. Potassium is replaced. Initial troponin is negative. Patient will be For serial cardiac enzymes and cardiology consultation given his risk factors. He is placed in observation on telemetry. - Lab Data Result diagrams: 03/21/18 18:27 03/21/18 18:27 Lab Results 03/21/18 03/21/18 03/21/18 Range/Units 18:27 18:27 18:27 WBC 11.4 H (3.8-10.6) k/uL RBC 5.54 (4.30-5.90) m/uL Hgb 15.0 (13.0-17.5) gm/dL Hct 46.7 (39.0-53.0) % MCV 84.4 (80.0-100.0) fL MCH 27.1 (25.0-35.0) pg MCHC 32.2 (31.0-37.0) g/dL RDW 15.6 H (11.5-15.5) % Plt Count 290 (150-450) k/uL Neutrophils % 75 % Lymphocytes % 16 % Monocytes % 4 % Eosinophils % 3 % Basophils % 1 % Neutrophils # 8.6 H (1.3-7.7) k/uL Lymphocytes # 1.8 (1.0-4.8) k/uL Monocytes # 0.5 (0-1.0) k/uL Eosinophils # 0.3 (0-0.7) k/uL Basophils # 0.1 (0-0.2) k/uL PT (9.0-12.0) sec INR (<1.2) APTT (22.0-30.0) sec D-Dimer (<0.60) mg/L FEU Sodium 134 L (137-145) mmol/L Potassium 3.2 L (3.5-5.1) mmol/L Chloride 95 L (98-107) mmol/L Carbon Dioxide 27 (22-30) mmol/L Anion Gap 12 mmol/L BUN 16 (9-20) mg/dL Creatinine 0.90 (0.66-1.25) mg/dL Est GFR (CKD-EPI)AfAm >90 (>60 ml/min/1.73 sqM) Est GFR (CKD-EPI)NonAf >90 (>60 ml/min/1.73 sqM) Glucose 170 H (74-99) mg/dL Calcium 9.5 (8.4-10.2) mg/dL Magnesium 1.7 (1.6-2.3) mg/dL Total Bilirubin 1.2 (0.2-1.3) mg/dL AST 34 (17-59) U/L ALT 52 (21-72) U/L Alkaline Phosphatase 72 (38-126) U/L Total Creatine Kinase 137 (55-170) U/L CK-MB (CK-2) 1.7 (0.0-2.4) ng/mL CK-MB (CK-2) Rel Index 1.2 Troponin I <0.012 (0.000-0.034) ng/mL NT-Pro-B Natriuret Pep pg/mL Total Protein 7.8 (6.3-8.2) g/dL Albumin 4.1 (3.5-5.0) g/dL 03/21/18 03/21/18 Range/Units 18:27 18:27 WBC (3.8-10.6) k/uL RBC (4.30-5.90) m/uL Hgb (13.0-17.5) gm/dL Hct (39.0-53.0) % MCV (80.0-100.0) fL MCH (25.0-35.0) pg MCHC (31.0-37.0) g/dL RDW (11.5-15.5) % Plt Count (150-450) k/uL Neutrophils % % Lymphocytes % % Monocytes % % Eosinophils % % Basophils % % Neutrophils # (1.3-7.7) k/uL Lymphocytes # (1.0-4.8) k/uL Monocytes # (0-1.0) k/uL Eosinophils # (0-0.7) k/uL Basophils # (0-0.2) k/uL PT 12.1 H (9.0-12.0) sec INR 1.3 H (<1.2) APTT 23.2 (22.0-30.0) sec D-Dimer 0.92 H (<0.60) mg/L FEU Sodium (137-145) mmol/L Potassium (3.5-5.1) mmol/L Chloride (98-107) mmol/L Carbon Dioxide (22-30) mmol/L Anion Gap mmol/L BUN (9-20) mg/dL Creatinine (0.66-1.25) mg/dL Est GFR (CKD-EPI)AfAm (>60 ml/min/1.73 sqM) Est GFR (CKD-EPI)NonAf (>60 ml/min/1.73 sqM) Glucose (74-99) mg/dL Calcium (8.4-10.2) mg/dL Magnesium (1.6-2.3) mg/dL Total Bilirubin (0.2-1.3) mg/dL AST (17-59) U/L ALT (21-72) U/L Alkaline Phosphatase (38-126) U/L Total Creatine Kinase (55-170) U/L CK-MB (CK-2) (0.0-2.4) ng/mL CK-MB (CK-2) Rel Index Troponin I (0.000-0.034) ng/mL NT-Pro-B Natriuret Pep 52 pg/mL Total Protein (6.3-8.2) g/dL Albumin (3.5-5.0) g/dL Disposition Clinical Impression: Chest pain Disposition: ADMITTED IP TO THIS [facility] Condition: Stable Is patient prescribed a controlled substance at d/c from ED?: No Referrals: Judah Coreas MD [Primary Care Provider] - 1-2 days Decision to Admit Reason: Admit from EC Decision Date: 03/21/18 Decision Time: 21:20
[2018-03-21 18:56] LABS: INR 1.3 (<1.2); Partial Thromboplastin Time 23.2 sec (22.0-30.0); Prothrombin Time 12.1 sec (9.0-12.0)
[2018-03-21 19:01] LABS: ALT 52 U/L (21-72); AST 34 U/L (17-59); Albumin 4.1 g/dL (3.5-5.0); Alkaline Phosphatase 72 U/L (38-126); Anion Gap 12 mmol/L; Blood Urea Nitrogen 16 mg/dL (9-20); Calcium 9.5 mg/dL (8.4-10.2); Carbon Dioxide 27 mmol/L (22-30); Chloride 95 mmol/L (98-107); Glucose 170 mg/dL (74-99); Magnesium 1.7 mg/dL (1.6-2.3); Potassium 3.2 mmol/L (3.5-5.1); Sodium 134 mmol/L (137-145); Total Bilirubin 1.2 mg/dL (0.2-1.3); Total Protein 7.8 g/dL (6.3-8.2)
[2018-03-21 19:03] LABS: Creatine Kinase 137 U/L (55-170)
--- NOTE | 2018-03-21 19:03 | XR ---
EXAMINATION TYPE: XR chest 2V DATE OF EXAM: 03/21/2018 COMPARISON: February 28, 2016 HISTORY: Chest pain TECHNIQUE: Frontal and lateral views of the chest are obtained. FINDINGS: Heart and mediastinum are normal. Lungs are clear. Diaphragm is normal. Bony thorax is int act. There are chest leads. IMPRESSION: Normal chest. No change.
[2018-03-21 19:16] LABS: Creatine Kinase MB 1.7 ng/mL (0.0-2.4); Troponin I <0.012 ng/mL (0.000-0.034)
[2018-03-21 19:34] LABS: D-Dimer 0.92 mg/L FEU (<0.60)
[2018-03-21] MEDS ORDERED: POTASSIUM CHLORIDE ER 20 MEQ TAB.ER PO STA (19:36)
--- NOTE | 2018-03-21 20:23 | CT ---
EXAMINATION TYPE: CT brain wo con DATE OF EXAM: 03/21/2018 COMPARISON: None HISTORY: Headache CT DLP: 1033.5 mGycm Automated exposure control for dose reduction was used. FINDINGS: There is mild cerebral cortical atrophy. There is no mass effect nor midline shift. There is no sign of intracranial hemorrhage. The calvarium is intact. IMPRESSION: NEGATIVE CT SCAN OF THE BRAIN.
--- NOTE | 2018-03-21 20:27 | CT ---
EXAMINATION TYPE: CT angio chest DATE OF EXAM: 03/21/2018 8:10 PM COMPARISON: None HISTORY: Chest pain and SOB CT DLP: 868.4 mGycm Automated exposure control for dose reduction was used. CONTRAST: CTA scan of the thorax is performed with IV Contrast, patient injected with 100 mL of Isovue 370, pul monary embolism protocol. There are 3-D post processed images.. FINDINGS: The lungs are clear of infiltrate. There is no evidence of a pulmonary mass. There is no pleural effu karey. There is small linear density in the lingula left upper lobe at the cardiophrenic angle. There is no pericardial effusion. Thoracic aorta appears normal. There is minimal aneurysm of the ascending aorta.. The ascending aorta measures 4.1 cm. I see no filling defect in the pulmonary arteries. There are no hilar masses. There is no mediastinal adenopathy. There is 10% anterior wedging of T12 vertebra of uncertain age. IMPRESSION: NO EVIDENCE OF PULMONARY EMBOLISM. MINIMAL ANEURYSM OF THE ASCENDING AORTA.
[2018-03-21] MEDS ORDERED: ASPIRIN 325 MG TAB PO STA (21:31)
[2018-03-21] MEDS ORDERED: NALOXONE 0.4 MG/ML 1 ML VIAL IV PRN (21:31)
[2018-03-21] MEDS ORDERED: ACETAMINOPHEN TAB 325 MG TAB PO PRN (21:31)
[2018-03-21] MEDS: SODIUM CHLORIDE 0.9% 1,000 ML IV SCH (21:47)
[2018-03-21 23:10] VITALS: BMI 47.2
[2018-03-22 02:02] LABS: Creatine Kinase 143 U/L (55-170)
[2018-03-22 02:16] LABS: Creatine Kinase MB 1.4 ng/mL (0.0-2.4); Troponin I <0.012 ng/mL (0.000-0.034)
[2018-03-22] MEDS: IBUPROFEN 400 MG TAB PO PRN (03:02)
[2018-03-22] MEDS: MAG HYDROX/AL HYDROX/SIMETH 30 ML CUP PO PRN ×2 (03:05→06:55)
[2018-03-22] MEDS ORDERED: MORPHINE SULFATE 4 MG/ML SYRINGE IVP PRN (03:32)
[2018-03-22] MEDS: ALPRAZolam 0.25 MG TAB PO PRN ×2 (03:39→23:07)
[2018-03-22] MEDS ORDERED: ONDANSETRON 4 MG/2 ML VIAL IVP PRN (04:45)
[2018-03-22 07:16] LABS: Basophils # (A) 0.1 k/uL (0-0.2); Basophils % (A) 0 %; Eosinophils # (A) 0.2 k/uL (0-0.7); Eosinophils % (A) 2 %; HCT 50.3 % (39.0-53.0); HGB 15.7 gm/dL (13.0-17.5); Lymphocytes % (A) 9 %; MCHC 31.2 g/dL (31.0-37.0); MCV 86.5 fL (80.0-100.0); Mean Platelet Volume 6.6; Monocytes # (A) 0.6 k/uL (0-1.0); Monocytes % (A) 5 %; Neutrophils # (A) 9.6 k/uL (1.3-7.7); Neutrophils % (A) 83 %; Platelet Count 274 k/uL (150-450); RBC 5.81 m/uL (4.30-5.90); RDW 15.5 % (11.5-15.5); WBC 11.6 k/uL (3.8-10.6)
[2018-03-22 07:33] LABS: ALT 82 U/L (21-72); AST 113 U/L (17-59); Albumin 4.1 g/dL (3.5-5.0); Alkaline Phosphatase 85 U/L (38-126); Anion Gap 8 mmol/L; Blood Urea Nitrogen 17 mg/dL (9-20); Calcium 9.7 mg/dL (8.4-10.2); Carbon Dioxide 33 mmol/L (22-30); Chloride 97 mmol/L (98-107); Glucose 120 mg/dL (74-99); Potassium 4.6 mmol/L (3.5-5.1); Sodium 138 mmol/L (137-145); Total Bilirubin 1.7 mg/dL (0.2-1.3); Total Protein 7.7 g/dL (6.3-8.2)
[2018-03-22 07:35] LABS: Creatine Kinase 160 U/L (55-170)
[2018-03-22 07:47] LABS: Creatine Kinase MB 1.8 ng/mL (0.0-2.4); Troponin I <0.012 ng/mL (0.000-0.034)
[2018-03-22 11:24] LABS: Amylase 119 U/L (30-110); Lipase 958 U/L (23-300)
[2018-03-22] MEDS: LOSARTAN-HCTZ 50-12.5 MG 1 EACH TAB PO SCH (12:10)
[2018-03-22] MEDS: ASPIRIN 81 MG PO SCH (12:10)
--- NOTE | 2018-03-22 12:13 | P.CRDCN ---
History of Present Illness History of present illness: This is Dr. Vargas dictating a consult on this patient The patient was interviewed and examined by me IMPRESSION / ASSESSMENT: Patient denies chest discomfort. He complains of severe abdominal pain with elevated amylase and lipase are normal cardiac enzymes Right bundle branch block on twelve-lead ECG History of coronary disease status post coronary stenting PLAN: Noncardiac complaints needs workup for abdominal pain. He should continue aspirin and antihypertensive therapy. I'm not sure why he is not on his statins. I don't see statins on his medication list. I will restart him on statins 20 mg by mouth daily atorvastatin restart antihypertensive therapy HPI Patient complaining of severe abdominal pain like a band around the belly for at least a week. However according to the ER notes he had left-sided chest discomfort lightheadedness and confusion Twelve-lead ECG showed right bundle branch block sinus tachycardia no definite ST-T abnormalities 3 sets of cardiac enzymes are normal Observation nurse sent amylase and lipase and the elevated. Amylase 119 lipase 958 ROS: No fever chills or rigors, no cough, phlegm or expectoration, no nausea, vomiting or diarrhea, complains of severe abdominal pain no hematuria, dysuria, no musculoskeletal complaints, no strokes or seizures, no skin lesions. Denies chest discomfort EXAMINATION Afebrile 97.8F pulse rate in the 70s, blood pressure 113/73 mmHg. Previously it was elevated 152/97 mmHg but he had not received his blood pressure medications Heart sounds S1 and S2 normal no murmurs or gallop. Abdomen soft Obesity Breath sounds are clear REVIEW OF LABS, ECG Elevated amylase elevated lipase normal cardiac enzymes Right bundle branch block and twelve-lead ECG sinus tachycardia no ST segment abnormalities Past Medical History Past Medical History: Hypertension, Myocardial Infarction ([place]), Sleep Apnea/CPAP /BIPAP Additional Past Medical History / Comment(s): HE ALSO HAS HX OF INTERMITTENT HEAVY L SIDED CHEST PAIN X 1 WEEK WITH DIAPHORESIS AND EPISODES OF SOB. PT HAS A BIPAP Last Myocardial Infarction Date:: 2004 History of Any Multi-Drug Resistant Organisms: None Reported Past Surgical History: Back Surgery, Cholecystectomy, Orthopedic Surgery Additional Past Surgical History / Comment(s): CARDIAC CATH 9 YRS AGO AND UNABLE TO PERFORM PTCA BECAUSE OF LESION POSITION SO HE WAS TX MEDICALLY. HE IS A PT OF DR. VARGAS. Left Total Knee - June 2017. Right Total Hip - March 201B. Back surgery x 2 - 15 years ago and January 2016 Past Anesthesia/Blood Transfusion Reactions: Postoperative Nausea & Vomiting ( PONV) Additional Past Anesthesia/Blood Transfusion Reaction / Comment(s): NEVER RECEIVED BLOOD. Smoking Status: Never smoker - Past Family History Father Family Medical History: Cancer Additional Family Medical History / Comment(s): FATHER IN HIS 50'S OF UNKNOWN CAUSES. Mother Family Medical History: Cancer Additional Family Medical History / Comment(s): MOTHER OF PANCREATIC CA IN HER 50'S Brother(s) Family Medical History: Diabetes Mellitus Sister(s) Family Medical History: Cancer Additional Family Medical History / Comment(s): BREAST CA. Medications and Allergies Home Medications Medication Instructions Recorded Confirmed Type RX: Cyclobenzaprine [Flexeril] 10 mg PO TID 02/28/16 03/21/18 History RX: Losartan/Hydrochlorothiazide 1 tab PO DAILY 02/28/16 03/21/18 History [Losartan-Hctz 100-25 mg Tab] ALPRAZolam [Xanax] 2 mg PO BID PRN 10/07/17 03/21/18 History Hydrocodone/Acetaminophen [[place] 1 tab PO TID PRN 03/17/18 03/21/18 History 10-325] RX: traMADol HCl [Ultram] 50 mg PO BID 03/17/18 03/21/18 History Allergies Allergy/AdvReac Type Severity Reaction Status Date / Time No Known Allergies Allergy Verified 03/21/18 23:00 Physical Exam Vitals: Vital Signs Temp Pulse Pulse Resp BP BP Pulse Ox 03/22/18 08:00 97.8 F 76 18 113/73 98 03/22/18 04:00 18 03/22/18 03:50 97.4 F L 85 18 152/97 97 03/21/18 23:29 18 03/21/18 23:16 98.2 F 77 18 151/101 96 03/21/18 22:36 99.0 F 77 18 127/76 94 L 03/21/18 21:32 94 18 132/76 95 03/21/18 20:07 88 18 124/67 95 03/21/18 19:09 99.0 F 92 18 127/70 95 03/21/18 18:24 98 18 122/62 93 L 03/21/18 18:19 98.7 F 105 H 18 122/62 94 L Intake and Output 03/21/18 03/22/18 03/22/18 22:59 06:59 14:59 Output Total 800 Balance -800 Output: Urine 800 Other: Voiding Method Toilet # Voids 1 Weight 141.067 kg 137.1 kg Results 03/22/18 06:37 03/22/18 06:37 Cardiac Enzymes 03/21/18 03/21/18 03/22/18 Range/Units 18:27 18:27 01:02 AST 34 (17-59) U/L CK-MB (CK-2) 1.7 1.4 (0.0-2.4) ng/mL Troponin I <0.012 <0.012 (0.000-0.034) ng/mL 03/22/18 03/22/18 Range/Units 06:37 06:37 AST 113 H (17-59) U/L CK-MB (CK-2) 1.8 (0.0-2.4) ng/mL Troponin I <0.012 (0.000-0.034) ng/mL Coagulation 03/21/18 Range/Units 18:27 PT 12.1 H (9.0-12.0) sec APTT 23.2 (22.0-30.0) sec CBC 03/21/18 03/22/18 Range/Units 18:27 06:37 WBC 11.4 H 11.6 H (3.8-10.6) k/uL RBC 5.54 5.81 (4.30-5.90) m/uL Hgb 15.0 15.7 (13.0-17.5) gm/dL Hct 46.7 50.3 (39.0-53.0) % Plt Count 290 274 (150-450) k/uL Comprehensive Metabolic Panel 03/21/18 03/22/18 Range/Units 18:27 06:37 Sodium 134 L 138 (137-145) mmol/L Potassium 3.2 L 4.6 (3.5-5.1) mmol/L Chloride 95 L 97 L (98-107) mmol/L Carbon Dioxide 27 33 H (22-30) mmol/L BUN 16 17 (9-20) mg/dL Creatinine 0.90 1.03 (0.66-1.25) mg/dL Glucose 170 H 120 H (74-99) mg/dL Calcium 9.5 9.7 (8.4-10.2) mg/dL AST 34 113 H (17-59) U/L ALT 52 82 H (21-72) U/L Alkaline Phosphatase 72 85 (38-126) U/L Total Protein 7.8 7.7 (6.3-8.2) g/dL Albumin 4.1 4.1 (3.5-5.0) g/dL Current Medications Generic Name Dose Route Start Last Admin Trade Name Freq PRN Reason Stop Dose Admin Acetaminophen 650 mg 03/21/18 21:31 03/22/18 11:22 Tylenol Tab PO 650 mg Q6HR PRN Administration Mild Pain or Fever > 100.5 Al Hydroxide/Mg Hydroxide 30 ml 03/22/18 02:57 03/22/18 06:55 Maalox PO 30 ml Q4HR PRN Administration GI Upset Alprazolam 0.25 mg 03/22/18 03:33 03/22/18 03:39 Xanax PO 0.25 mg Q8HR PRN Administration Anxiety Aspirin 81 mg 03/22/18 12:00 03/22/18 12:10 Aspirin PO 81 mg DAILY TAD Administration HCTZ/Losartan Potassium 2 each 03/22/18 12:00 03/22/18 12:10 Hyzaar 50-12.5 PO 2 each DAILY TAD Administration Sodium Chloride 1,000 mls @ 75 mls/hr 03/21/18 21:45 03/21/18 21:47 Saline 0.9% IV 75 mls/hr .[id number] TAD Administration Ibuprofen 400 mg 03/21/18 21:31 03/22/18 03:02 Motrin PO 400 mg Q6HR PRN Administration Mild Pain or Fever > 100.5 Morphine Sulfate 4 mg 03/22/18 03:32 03/22/18 03:39 Morphine Sulfate (Inj) IVP 4 mg Q4HR PRN Administration Pain Naloxone HCl 0.2 mg 03/21/18 21:31 Narcan IV Q2M PRN Opioid Reversal Ondansetron HCl 4 mg 03/22/18 04:45 Zofran IVP Q6HR PRN Nausea And Vomiting Intake and Output 03/21/18 03/22/18 03/22/18 22:59 06:59 14:59 Output Total 800 Balance -800 Output: Urine 800 Other: Voiding Method Toilet # Voids 1 Weight 141.067 kg 137.1 kg 03/22/18 06:37 03/22/18 06:37
--- NOTE | 2018-03-22 17:23 | ECHOF ---
Referral Reason:cad MEASUREMENTS -------- HEIGHT: 172.7 cm WEIGHT: 137.0 kg BP: IVSd: 1.8 cm (0.6 - 1.1) LVIDd: 5.1 cm (3.9 - 5.3) LVPWd: 1.7 cm (0.6 - 1.1) IVSs: 2.1 cm LVIDs: 4.2 cm LVPWs: 2.4 cm RVIDd: 4.8 cm (< 3.3) Ao Diam: 3.4 cm (2.0 - 3.7) LA Diam: 4.5 cm (2.7 - 3.8) AV Cusp: 2.3 cm (1.5 - 2.6) EPSS: 0.5 cm MV E Jose Miguel: 0.41 m/s MV DecT: 192 ms MV A Jose Miguel: 0.52 m/s MV E/A Ratio: 0.80 RAP: 5.00 mmHg RVSP: 11.33 mmHg MV EF SLOPE: 98.51 mm/s (70 - 150) MV EXCURSION: 19.09 mm (> 18.000) FINDINGS -------- Sinus rhythm. Morbid Obesity This was a techncally difficult study with suboptimal views, , Lumason utilized for enhancement of im ages. The left ventricular size is normal. There is severe concentric left ventricular hypertrophy. Ove rall left ventricular systolic function is low-normal with, an EF between 50 - 55 %. The right ventricle is severely enlarged. The left atrium is mildly dilated. The right atrial size is normal. 5.0mg OF Lumason UTLIZED: 2 OR MORE WALL SEGMENTS NOT VISUALIZED. The aortic valve was not well visualized. Mild mitral annular calcification present. Mild mitral regurgitation is present. Mild tricuspid regurgitation present. There is no evidence of pulmonary hypertension. The right v entricular systolic pressure, as measured by Doppler, is 11.33mmHg. The pulmonic valve was not well visualized. The aortic root size is normal. There is no pericardial effusion. CONCLUSIONS -------- 1. Morbid Obesity 2. This was a techncally difficult study with suboptimal views, , Lumason utilized for enhancement of images. 3. The left ventricular size is normal. 4. There is severe concentric left ventricular hypertrophy. 5. Overall left ventricular systolic function is low-normal with, an EF between 50 - 55 %. 6. The right ventricle is severely enlarged. 7. The left atrium is mildly dilated. 8. The right atrial size is normal. 9. 5.0mg OF Lumason UTLIZED: 2 OR MORE WALL SEGMENTS NOT VISUALIZED. 10. The aortic valve was not well visualized. 11. Mild mitral annular calcification present. 12. Mild mitral regurgitation is present. 13. Mild tricuspid regurgitation present. 14. There is no evidence of pulmonary hypertension. 15. The right ventricular systolic pressure, as measured by Doppler, is 11.33mmHg. 16. The pulmonic valve was not well visualized. 17. The aortic root size is normal. 18. There is no pericardial effusion. 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
--- NOTE | 2018-03-22 17:43 | US ---
EXAMINATION TYPE: US liver DATE OF EXAM: 03/22/2018 COMPARISON: CT 03/21/2018e CLINICAL HISTORY: elevated enzymes. EXAM MEASUREMENTS: Liver Length: 16.0 cm Gallbladder Wall: Surgically absent CBD: 0.5 cm Right Kidney: 10.8 x 5.6 x 5.1 cm Patient 5'8", 302lbs, with extensive midline bowel gas. Technically difficult and somewhat limited st udy. Pancreas: Obscured by bowel gas Liver: Increased attenuation, decreased visualization of vessels suggestive of fatty infiltrate, lef t lobe cyst measuring 0.8 x 0.7 x 1.0cm Gallbladder: Surgically absent Evidence for sonographic Weiss's sign: no CBD: wnl Right Kidney: wnl IMPRESSION: Findings suggest hepatic steatosis. Limited exam.
[2018-03-22] MEDS: PANTOPRAZOLE 40 MG/10 ML VIAL IVP SCH (18:36)
[2018-03-22] MEDS: SODIUM CHLORIDE 0.9% 1,000 ML IV SCH ×2 (19:53→19:54)
[2018-03-22] MEDS ORDERED: CYCLOBENZAPRINE 10 MG TAB PO STA (21:19)
[2018-03-23] MEDS: ASPIRIN 81 MG PO SCH (07:58)
[2018-03-23] MEDS: LOSARTAN-HCTZ 50-12.5 MG 1 EACH TAB PO SCH (07:58)
[2018-03-23] MEDS: PANTOPRAZOLE 40 MG/10 ML VIAL IVP SCH (07:58)
[2018-03-23] MEDS: SODIUM CHLORIDE 0.9% 1,000 ML IV SCH ×2 (07:59→20:26)
--- NOTE | 2018-03-23 14:50 | P.HPIM ---
History of Present Illness H&P Date: 03/22/18 Chief Complaint: Chest Pain Patient complaining of severe abdominal pain like a band around the belly for at least a week. However according to the ER notes he had left-sided chest discomfort lightheadedness and confusion Twelve-lead ECG showed right bundle branch block sinus tachycardia no definite ST-T abnormalities 3 sets of cardiac enzymes are normal Observation nurse sent amylase and lipase and the elevated. Amylase 119 lipase 958 Review of Systems Constitutional: Denies chills, Denies fever, Denies weight loss Eyes: denies blurred vision, denies loss of vision Ears, nose, mouth and throat: Denies epistaxis, Denies headache, Denies sore throat Cardiovascular: Reports chest pain, Denies rapid heart beat, Denies shortness of breath Respiratory: Denies dyspnea, Denies hemoptysis, Denies wheezing Gastrointestinal: Reports abdominal pain, Reports nausea, Denies vomiting Genitourinary: Denies dysuria, Denies hematuria, Denies polyuria Musculoskeletal: Denies gait dysfunction Integumentary: Denies color changes, Denies rash Neurological: Denies change in mentation, Denies change in smell/taste, Denies change in speech Psychiatric: Denies anxiety Endocrine: Denies cold intolerance, Denies heat intolerance Hematologic/Lymphatic: Denies easy bruising, Denies lymphadenopathy Past Medical History Past Medical History: Hypertension, Myocardial Infarction ([place]), Sleep Apnea/CPAP /BIPAP Additional Past Medical History / Comment(s): HE ALSO HAS HX OF INTERMITTENT HEAVY L SIDED CHEST PAIN X 1 WEEK WITH DIAPHORESIS AND EPISODES OF SOB. PT HAS A BIPAP Last Myocardial Infarction Date:: 2004 History of Any Multi-Drug Resistant Organisms: None Reported Past Surgical History: Back Surgery, Cholecystectomy, Orthopedic Surgery Additional Past Surgical History / Comment(s): CARDIAC CATH 9 YRS AGO AND UNABLE TO PERFORM PTCA BECAUSE OF LESION POSITION SO HE WAS TX MEDICALLY. HE IS A PT OF DR. DAVENPORT. Left Total Knee - June 2017. Right Total Hip - September. Back surgery x 2 - 15 years ago and January 2016 Past Anesthesia/Blood Transfusion Reactions: Postoperative Nausea & Vomiting ( PONV) Additional Past Anesthesia/Blood Transfusion Reaction / Comment(s): NEVER RECEIVED BLOOD. Smoking Status: Never smoker - Past Family History Father Family Medical History: Cancer Additional Family Medical History / Comment(s): FATHER IN HIS 50'S OF UNKNOWN CAUSES. Mother Family Medical History: Cancer Additional Family Medical History / Comment(s): MOTHER OF PANCREATIC CA IN HER 50'S Brother(s) Family Medical History: Diabetes Mellitus Sister(s) Family Medical History: Cancer Additional Family Medical History / Comment(s): BREAST CA. Medications and Allergies Home Medications Medication Instructions Recorded Confirmed Type Cyclobenzaprine [Flexeril] 10 mg PO TID 02/28/16 03/21/18 History Losartan/Hydrochlorothiazide 1 tab PO DAILY 02/28/16 03/21/18 History [Losartan-Hctz 100-25 mg Tab] ALPRAZolam [Xanax] 2 mg PO BID PRN 10/07/17 03/21/18 History Hydrocodone/Acetaminophen [[place] 1 tab PO TID PRN 03/17/18 03/21/18 History 10-325] traMADol HCl [Ultram] 50 mg PO BID 03/17/18 03/21/18 History Allergies Allergy/AdvReac Type Severity Reaction Status Date / Time No Known Allergies Allergy Verified 03/21/18 23:00 Physical Exam Vitals: Vital Signs Temp Pulse Pulse Resp BP BP Pulse Ox 03/22/18 16:00 98.2 F 85 16 124/95 97 03/22/18 12:00 97.6 F 73 18 140/88 95 03/22/18 08:00 97.8 F 76 18 113/73 98 03/22/18 04:00 18 03/22/18 03:50 97.4 F L 85 18 152/97 97 03/21/18 23:29 18 03/21/18 23:16 98.2 F 77 18 151/101 96 03/21/18 22:36 99.0 F 77 18 127/76 94 L 03/21/18 21:32 94 18 132/76 95 03/21/18 20:07 88 18 124/67 95 03/21/18 19:09 99.0 F 92 18 127/70 95 03/21/18 18:24 98 18 122/62 93 L 03/21/18 18:19 98.7 F 105 H 18 122/62 94 L Intake and Output 03/22/18 03/22/18 03/22/18 06:59 14:59 22:59 Other: Voiding Method Toilet Toilet # Voids 1 Weight 137.1 kg Results CBC & Chem 7: 03/22/18 06:37 03/22/18 06:37 Labs: Abnormal Lab Results - Last 24 Hours (Table) 03/21/18 03/21/18 03/21/18 Range/Units 18:27 18:27 18:27 WBC 11.4 H (3.8-10.6) k/uL RDW 15.6 H (11.5-15.5) % Neutrophils # 8.6 H (1.3-7.7) k/uL PT 12.1 H (9.0-12.0) sec INR 1.3 H (<1.2) D-Dimer 0.92 H (<0.60) mg/L FEU Sodium 134 L (137-145) mmol/L Potassium 3.2 L (3.5-5.1) mmol/L Chloride 95 L (98-107) mmol/L Carbon Dioxide (22-30) mmol/L Glucose 170 H (74-99) mg/dL Total Bilirubin (0.2-1.3) mg/dL AST (17-59) U/L ALT (21-72) U/L Amylase (30-110) U/L Lipase (23-300) U/L 03/22/18 03/22/18 03/22/18 Range/Units 06:37 06:37 06:37 WBC 11.6 H (3.8-10.6) k/uL RDW (11.5-15.5) % Neutrophils # 9.6 H (1.3-7.7) k/uL PT (9.0-12.0) sec INR (<1.2) D-Dimer (<0.60) mg/L FEU Sodium (137-145) mmol/L Potassium (3.5-5.1) mmol/L Chloride 97 L (98-107) mmol/L Carbon Dioxide 33 H (22-30) mmol/L Glucose 120 H (74-99) mg/dL Total Bilirubin 1.7 H (0.2-1.3) mg/dL AST 113 H (17-59) U/L ALT 82 H (21-72) U/L Amylase 119 H (30-110) U/L Lipase 958 H (23-300) U/L Thrombosis Risk Factor Assmnt - Choose All That Apply Each Factor Represents 1 point: Age 41-60 years Thrombosis Risk Factor Assessment Total Risk Factor Score: 1 Thrombosis Risk Factor Assessment Level: Low Risk Assessment and Plan Assessment: 1. Chest pain; rule out acute coronary syndrome - Monitor EKG and trend troponin - Cardiology consultation is done and recommending starting patient on aspirin and statins and restart antihypertensive therapy - 2-D echocardiogram is ordered and is pending; further recommendations after echo results available 2. Intractable abdominal pain/acute pancreatitis - Labs reviewed with amylase of 119 and lipase of 958 - Patient relates that his abdominal pain got markedly worse after eating - We will increase fluids to 125 mL an hour and make patient nothing by mouth - Order ultrasound of abdomen for further evaluation and recommendations - start patient on Protonix 40 mg IV daily along with morphine sulfate 4 mg every 4 hours when necessary for pain control - Consult GI; appreciate their expertise in management of this patient 3. Uncontrolled hypertension - restart patient on hydrochlorothiazide/losartan 5012 0.5 mg daily; continue with aspirin 81 mg daily -we will monitor blood pressure closely and adjust medications if needed 4. Obesity; counseling done on the current weight reduction 5. DVT prophylaxis CODE STATUS; full code Time with Patient: Greater than 30
--- NOTE | 2018-03-23 14:51 | P.PN ---
Subjective Progress Note Date: 03/23/18 Principal diagnosis: chest pain Acute pancreatitis 03/23/2018 Patient is seen and evaluated in the room at bedside; patient remains nothing by mouth with IV fluids running at 125 mL an hour; patient does report improvement in the abdominal pain; patient's amylase and lipase from yesterday are 119 and 958 respectively; abdominal ultrasound showing hepatic steatosis with pancreas obscured by bowel gas patient was worked up for chest pain and workup has been negative so far with 2- D echo showing severe concentric left ventricular hypertrophy with an ejection fraction of 50-55% we will continue with current management; we will repeat amylase and lipase levels; GI consultation is requested and is pending; we will recommend starting patient on clear liquid diet if amylase and lipase are down trending Objective - Vital Signs Vital signs: Vital Signs Temp 98.5 F 03/23/18 07:00 Pulse 78 03/23/18 07:00 Resp 18 03/23/18 07:00 BP 140/97 03/23/18 07:00 Pulse Ox 99 03/23/18 07:00 Intake & Output 03/22/18 03/23/18 03/23/18 18:59 06:59 18:59 Intake Total 400 200 Balance 400 200 Weight 137.1 kg Intake: Oral 400 200 Other: Voiding Method Toilet Toilet # Voids 0 - Exam - Constitutional General appearance: Present: average body habitus, cooperative, no acute distress - EENT Eyes: Present: anicteric sclerae, EOMI, PERRLA, normal appearance ENT: Present: hearing grossly normal, normal oropharynx Ears: bilateral: normal - Neck Neck: Present: normal ROM. Absent: lymphadenopathy, rigidity, thyromegaly Carotids: negative: bruit present Thyroid: bilateral: normal size, negative: enlarged, nodule - Respiratory Respiratory: bilateral: CTA, negative: rales, rhonchi, wheezing - Cardiovascular Rhythm: regular Heart sounds: normal: S1, S2 Abnormal Heart Sounds: Absent: systolic murmur, diastolic murmur - Gastrointestinal General gastrointestinal: Present: normal bowel sounds, soft. Absent: distended , organomegaly, tenderness - Genitourinary Genitourinary Comment(s): deferred - Integumentary Integumentary: Present: normal turgor. Absent: jaundiced, rash, ulcer - Neurologic Neurologic: Present: CNII-XII intact. Absent: focal deficits - Musculoskeletal Musculoskeletal: Present: gait normal, strength equal bilaterally - Psychiatric Psychiatric: Present: A&O x's 3, appropriate affect, intact judgment & insight - Labs CBC & Chem 7: 03/22/18 06:37 03/22/18 06:37 Assessment and Plan Assessment: 1. Chest pain; rule out acute coronary syndrome - Monitor EKG and trend troponin - Cardiology consultation is done and recommending starting patient on aspirin and statins and restart antihypertensive therapy - 2-D echocardiogram is ordered and is pending; further recommendations after echo results available 2. Intractable abdominal pain/acute pancreatitis - Labs reviewed with amylase of 119 and lipase of 958 - Patient relates that his abdominal pain got markedly worse after eating - We will increase fluids to 125 mL an hour and make patient nothing by mouth - Order ultrasound of abdomen for further evaluation and recommendations - start patient on Protonix 40 mg IV daily along with morphine sulfate 4 mg every 4 hours when necessary for pain control - Consult GI; appreciate their expertise in management of this patient 3. Uncontrolled hypertension - restart patient on hydrochlorothiazide/losartan 5012 0.5 mg daily; continue with aspirin 81 mg daily -we will monitor blood pressure closely and adjust medications if needed 4. Obesity; counseling done on the current weight reduction 5. DVT prophylaxis CODE STATUS; full code Time with Patient: Greater than 30
[2018-03-23 15:02] VITALS: PULSE 81
--- NOTE | 2018-03-23 15:52 | P.CONS ---
History of Present Illness - Reason for Consult Consult date: 03/23/18 pancreatitis Requesting physician: Pedro Alvarado - Chief Complaint not feeling well chest and abdominal pain - History of Present Illness The patient is a 53-year-old male with past medical history significant for hypertension, prior VT, and sleep apnea presents with complaints of chest and abdominal pain and a general feeling of being unwell. The patient reports that over the past week he has not been feeling well in himself. He reports nausea without any episodes of vomiting and the sensation of a sharp pain in his chest. This was predominantly the left side of his chest. He also reports epigastric abdominal pain also described as sharp with radiation into his sides. He denies any vomiting, any history of reflux disease, but does use naproxen twice daily in addition to other medications for pain control given his prior surgeries (hip replacement knee replacement back surgery). The patient has also had a cholecystectomy in the past. He reports that previously he was a heavy alcohol user but over the past year has only drank 1 time prior to having a tooth removed. No tobacco abuse. The patient was found to have an elevated lipase of 955 on presentation, ultrasound was performed which showed a normal CBD and a fatty liver, with a surgically absent gallbladder. The patient denies any new medications. He does have a family history of pancreatic cancer in his mother in her 50s. Currently he is lying in bed with no acute complaints. Past endoscopic history: No prior EGD or colonoscopy. Family history: Pancreatic cancer in the patient's mother when she was in her 50s, and breast cancer in his sister. Social history: Prior every day drinker up until approximately 1 year ago. He reports drinking only once in the past year prior to having a tooth extraction. A nice tobacco use. Review of Systems REVIEW OF SYSTEMS: CARDIOPULMONARY: Chest pain described as left sided and sharp, also suffers from obstructive sleep apnea. GENITOURINARY: No dysuria or hematuria. MUSCULOSKELETAL: No weakness reported. SKIN: Denies any new rashes or lesions, jaundice or pallor. PSYCHIATRIC: Denies any depression or anxiety. NEUROLOGY: Denies headache, denies any new focal deficits. EARS: No tinnitus, discharge or new hearing loss. NOSE: No discharge or congestion. EYES: No pain in eyes or change in vision. CONSTITUTIONAL: No recent weight loss. No fever, chills, night sweats. Past Medical History Past Medical History: Hypertension, Myocardial Infarction (VT), Sleep Apnea/CPAP /BIPAP Additional Past Medical History / Comment(s): HE ALSO HAS HX OF INTERMITTENT HEAVY L SIDED CHEST PAIN X 1 WEEK WITH DIAPHORESIS AND EPISODES OF SOB. PT HAS A BIPAP Last Myocardial Infarction Date:: 2004 History of Any Multi-Drug Resistant Organisms: None Reported Past Surgical History: Back Surgery, Cholecystectomy, Orthopedic Surgery Additional Past Surgical History / Comment(s): CARDIAC CATH 9 YRS AGO AND UNABLE TO PERFORM PTCA BECAUSE OF LESION POSITION SO HE WAS TX MEDICALLY. HE IS A PT OF DR. DAVENPORT. Left Total Knee - June 2017. Right Total Hip - September. Back surgery x 2 - 15 years ago and January 2016 Past Anesthesia/Blood Transfusion Reactions: Postoperative Nausea & Vomiting ( PONV) Additional Past Anesthesia/Blood Transfusion Reaction / Comm: NEVER RECEIVED BLOOD. Smoking Status: Never smoker - Past Family History Father Family Medical History: Cancer Additional Family Medical History / Comment(s): FATHER IN HIS 50'S OF UNKNOWN CAUSES. Mother Family Medical History: Cancer Additional Family Medical History / Comment(s): MOTHER OF PANCREATIC CA IN HER 50'S Brother(s) Family Medical History: Diabetes Mellitus Sister(s) Family Medical History: Cancer Additional Family Medical History / Comment(s): BREAST CA. Medications and Allergies Home Medications Medication Instructions Recorded Confirmed Type Cyclobenzaprine [Flexeril] 10 mg PO TID 02/28/16 03/21/18 History Losartan/Hydrochlorothiazide 1 tab PO DAILY 02/28/16 03/21/18 History [Losartan-Hctz 100-25 mg Tab] ALPRAZolam [Xanax] 2 mg PO BID PRN 10/07/17 03/21/18 History Hydrocodone/Acetaminophen [[place] 1 tab PO TID PRN 03/17/18 03/21/18 History 10-325] traMADol HCl [Ultram] 50 mg PO BID 03/17/18 03/21/18 History Allergies Allergy/AdvReac Type Severity Reaction Status Date / Time No Known Allergies Allergy Verified 03/21/18 23:00 Physical Exam Vitals: Vital Signs Temp Pulse Resp BP BP Pulse Ox 03/23/18 15:00 98.6 F 81 18 159/74 97 03/23/18 07:00 98.5 F 78 18 140/97 99 08/25/18 23:00 98.5 F 77 18 145/91 96 03/22/18 20:00 18 03/22/18 19:10 98.2 F 89 16 164/91 93 L 03/22/18 16:00 98.2 F 85 16 124/95 97 Intake and Output 03/23/18 03/23/18 03/23/18 06:59 14:59 22:59 Intake Total 400 440 Balance 400 440 Intake: Oral 400 440 Other: Voiding Method Toilet # Voids 0 2 # Bowel Movements 0 Weight 137.1 kg On physical examination, patient appears comfortable in no apparent distress. HEAD: Normocephalic, atraumatic. EYES: No clerae icterus. No conjunctival injection. MOUTH: No lesions, tongue midline. NECK: Trachea midline, no gross abnormalities. CHEST: Clear to auscultation with no wheezing or rhonchi appreciated. HEART: Regular rate and rhythm. ABDOMEN: Soft, obese. Bowel sounds are positive. No organomegaly. No guarding or rigidity. EXTREMITIES: No pedal edema. SKIN: No rashes, no jaundice, patient has drying of skin on face and head. NEUROLOGIC: Alert and oriented x3. No focal deficits. Results CBC & Chem 7: 03/22/18 06:37 03/22/18 06:37 US - abdomen: report reviewed (significant for hepatic steatosis, surgically absent gallbladder with no CBD enlargement) Assessment and Plan (1) Pancreatitis Narrative/Plan: Patient presenting with complaints of abdominal and chest pain, with findings of elevated lipase of 958. The patient denies any recent alcohol use and there were no findings to suggest choledocholithiasis on ultrasound with a surgically absent gallbladder and normal CBD. The patient denies any new medications which are related to the development of pancreatitis. Given his family history of pancreatic cancer he will need an endoscopic ultrasound to rule out neoplasm in the future Current Visit: Yes Status: Acute Code(s): K85.90 - ACUTE PANCREATITIS WITHOUT NECROSIS OR INFECTION, UNSP SNOMED Code(s): 12216318 (2) Family history of pancreatic cancer Narrative/Plan: Patient reports pancreatic cancer in his mother in her 50s. Current Visit: Yes Status: Acute Code(s): Z80.0 - FAMILY HISTORY OF MALIGNANT NEOPLASM OF DIGESTIVE ORGANS SNOMED Code(s): 604759189 Plan: Supportive care Liquids as tolerated Continue IV fluid hydration Continue abstinence of alcohol use We'll need endoscopic ultrasound for evaluation of cysts or neoplasm or other pathology which could've triggered the patient's pancreatitis Continue electrolyte replacement Continue Protonix Triglyceride level ordered We'll continue to follow Thank you for allowing us to participate in the care of this patient
[2018-03-23] MEDS ORDERED: LACTATED RINGERS 1,000 ML IV SCH (16:15)
[2018-03-23] MEDS: IBUPROFEN 400 MG TAB PO PRN (20:25)
[2018-03-23] MEDS: ALPRAZolam 0.25 MG TAB PO PRN (23:14)
[2018-03-23] MEDS ORDERED: CYCLOBENZAPRINE 10 MG TAB PO PRN (23:32)
[2018-03-24] MEDS: SODIUM CHLORIDE 0.9% 1,000 ML IV SCH ×2 (03:47→12:40)
[2018-03-24 06:16] VITALS: BP 135/79; RESP 17; TEMP 97.2
[2018-03-24] MEDS: PANTOPRAZOLE 40 MG/10 ML VIAL IVP SCH (07:27)
[2018-03-24] MEDS: ASPIRIN 81 MG PO SCH (07:27)
[2018-03-24] MEDS: LOSARTAN-HCTZ 50-12.5 MG 1 EACH TAB PO SCH (07:27)
[2018-03-24 07:45] LABS: Basophils # (A) 0.1 k/uL (0-0.2); Basophils % (A) 1 %; Eosinophils # (A) 0.3 k/uL (0-0.7); Eosinophils % (A) 4 %; HCT 41.3 % (39.0-53.0); HGB 13.6 gm/dL (13.0-17.5); Lymphocytes # (A) 1.1 k/uL (1.0-4.8); Lymphocytes % (A) 13 %; MCH 28.1 pg (25.0-35.0); MCV 85.2 fL (80.0-100.0); Monocytes # (A) 0.5 k/uL (0-1.0); Monocytes % (A) 6 %; Neutrophils # (A) 6.1 k/uL (1.3-7.7); Neutrophils % (A) 75 %; Platelet Count 240 k/uL (150-450); RBC 4.85 m/uL (4.30-5.90); WBC 8.1 k/uL (3.8-10.6)
[2018-03-24 08:13] LABS: Amylase 46 U/L (30-110); Anion Gap 6 mmol/L; Blood Urea Nitrogen 10 mg/dL (9-20); Calcium 8.7 mg/dL (8.4-10.2); Carbon Dioxide 30 mmol/L (22-30); Chloride 101 mmol/L (98-107); Glucose 88 mg/dL (74-99); Lipase 102 U/L (23-300); Potassium 3.8 mmol/L (3.5-5.1); Sodium 137 mmol/L (137-145)
--- NOTE | 2018-03-24 17:15 | P.DS ---
Providers Date of admission: 03/22/18 14:27 Expected date of discharge: 03/24/18 Attending physician: Pedro Purdy. Consults: 03/21/18 21:33 Consult Physician Routine Consulting Provider: Mark Kunz Consult Reason/Comments: CP Do you want consulting provider notified?: Yes 03/22/18 17:16 Consult Physician Routine Consulting Provider: Loyda Leo Consult Reason/Comments: Abdominal Pain/ Pancreatitis Do you want consulting provider notified?: Yes Primary care physician: Lyudmila So Hospital Course: Final Diagnoses: 1. Chest pain; rule out acute coronary syndrome -Evaluated by Cardiology, recommended starting aspirin and statins and restart antihypertensive therapy 2. Intractable abdominal pain secondary to acute pancreatitis, in a patient with family history of pancreatic cancer 3. Uncontrolled hypertension - restarted patient on hydrochlorothiazide/losartan 5012 0.5 mg daily; continued with aspirin 81 mg daily 4. Obesity; counseling done on the current weight reduction Hospital course:Patient complaining of severe abdominal pain like a band around the belly for at least a week. However according to the ER notes he had left- sided chest discomfort lightheadedness and confusion Twelve-lead ECG showed right bundle branch block sinus tachycardia no definite ST-T abnormalities 3 sets of cardiac enzymes are normal Observation nurse sent amylase and lipase and the elevated. Amylase 119 lipase 958 Evaluated by cardiology and GI. Maintained on IV fluid hydration & PPI. Significant clinical improvement Outpatient EUS recommended. Cleared by all consults for discharge. Patient is being discharged home in a stable condition with guarded prognosis. - Exam - Constitutional General appearance: Alert and oriented 3, no acute distress. - Respiratory Respiratory: bilateral: CTA, negative: rales, rhonchi, wheezing - Cardiovascular Rhythm: regular Heart sounds: normal: S1, S2 Abnormal Heart Sounds: Absent: systolic murmur, diastolic murmur - Gastrointestinal General gastrointestinal: Present: normal bowel sounds, soft. Absent: distended , organomegaly, tenderness - Neurologic Neurologic: Present: CNII-XII intact. Absent: focal deficits The impression and plan of care has been dictated as directed. : I performed a history and examination of this patient, discussed the same with the dictator. I agree with the dictator's note ,documented as a scribe. Any additional findings or plans will be noted. Time taken: 35 minutes Patient Condition at Discharge: Stable Plan - Discharge Summary New Discharge Prescriptions: New Aspirin 81 mg PO DAILY chew Pantoprazole Sodium [Protonix] 40 mg PO DAILY #30 tablet. No Action Cyclobenzaprine [Flexeril] 10 mg PO TID Losartan/Hydrochlorothiazide [Losartan-Hctz 100-25 mg Tab] 1 tab PO DAILY ALPRAZolam [Xanax] 2 mg PO BID PRN PRN Reason: Anxiety traMADol HCl [Ultram] 50 mg PO BID Hydrocodone/Acetaminophen [[place] 10-325] 1 tab PO TID PRN PRN Reason: Pain Discharge Medication List Cyclobenzaprine [Flexeril] 10 mg PO TID 02/28/16 [History] Losartan/Hydrochlorothiazide [Losartan-Hctz 100-25 mg Tab] 1 tab PO DAILY [History] ALPRAZolam [Xanax] 2 mg PO BID PRN 10/07/17 [History] Hydrocodone/Acetaminophen [[place] 10-325] 1 tab PO TID PRN 03/17/18 [History] traMADol HCl [Ultram] 50 mg PO BID 03/17/18 [History] Aspirin 81 mg PO DAILY chew 03/24/18 [Rx] Pantoprazole Sodium [Protonix] 40 mg PO DAILY #30 tablet. 03/24/18 [Rx] Follow up Appointment(s)/Referral(s): Teri Rangel MD [STAFF PHYSICIAN] - 1 Week (client wants to make own appointment) Judah Coreas MD [Primary Care Provider] - 03/28/18 11:00 am Kurt Hilliard MD [STAFF PHYSICIAN] - 1 Week (office will call with procedure date and time. ) Ambulatory/Diagnostic Orders: Complete Blood Count w/diff [LAB.AMB] Time Frame: 3 Days, Location: None Selected Patient Instructions/Handouts: Pancreatitis (DC) Activity/Diet/Wound Care/Special Instructions: Outpatient EUS will be arranged at follow-up visit with GI Confirm cardiology follow-up appointment per to discharge. Discharge Disposition: HOME SELF-CARE
== END 2018-03-24 13:48 | disposition home or self-care (01) | DRG 439 ==
LOC: EC 18:16 → 3OBS 21:31 → OBSVTOIN 03-22 14:27 → 4MS4W 03-22 23:02
PROVIDERS: ADMIT Hospitalist; ATTEND Hospitalist
DX: K85.90 Acute pancreatitis without necrosis or infection, unspecified (principal); Z68.42 Body mass index [BMI] 45.0-49.9, adult; E87.1 Hypo-osmolality and hyponatremia; E66.01 Morbid (severe) obesity due to excess calories; I71.2 Thoracic aortic aneurysm, without rupture; K76.0 Fatty (change of) liver, not elsewhere classified; R07.9 Chest pain, unspecified; I45.10 Unspecified right bundle-branch block; E87.6 Hypokalemia; I10 Essential (primary) hypertension; G47.30 Sleep apnea, unspecified; F41.9 Anxiety disorder, unspecified; I25.10 Atherosclerotic heart disease of native coronary artery without angina pectoris; I25.2 Old myocardial infarction; Z79.891 Long term (current) use of opiate analgesic; Z79.899 Other long term (current) drug therapy; Z95.5 Presence of coronary angioplasty implant and graft; Z96.641 Presence of right artificial hip joint; Z96.652 Presence of left artificial knee joint; Z90.49 Acquired absence of other specified parts of digestive tract; Z80.0 Family history of malignant neoplasm of digestive organs; Z83.3 Family history of diabetes mellitus; Z80.3 Family history of malignant neoplasm of breast; Z80.9 Family history of malignant neoplasm, unspecified
CPT/HCPCS: 36415; 70450; 71046; 71275; 76705; 80048; 80053; 82150; 82550; 82553; 83690; 83735; 83880; 84478; 84484; 85025; 85379; 85610; 85730; 93005; 93306; 99285

== ENCOUNTER 2018-12-11 15:13 | Emergency (ER) | payer BC, OTHER ==
[2018-12-11 15:22] VITALS: RESP 18; TEMP 98.8
[2018-12-11] MEDS ORDERED: SODIUM CHLORIDE 0.9% 500 ML 500 ML IV STA (15:53)
[2018-12-11] MEDS ORDERED: LORazepam 2 MG/ML INJ IV STA (15:53)
[2018-12-11] MEDS ORDERED: hydrALAZINE HCL 20 MG/ML 1 ML VIAL IVP STA (15:53)
--- NOTE | 2018-12-11 15:59 | ED ---
General Adult HPI - General Chief complaint: Recheck/Abnormal Lab/Rx Stated complaint: Hypertension Time Seen by Provider: 12/11/18 15:15 Source: patient, RN notes reviewed Mode of arrival: EMS Limitations: no limitations - History of Present Illness Initial comments: This a 53-year-old male with a past medical history significant for high blood pressure. Patient states he also had a heart attack in the past. Patient comes in today because he went to his doctor's office and elevated blood pressure. Patient states he has not taken his blood pressure medications for the last 3 days because he had an upset stomach. Patient states he has no symptoms whatsoever and doesn't want to be in the emergency department. Patient denies any headache patient with any blurred vision. Patient denies any numbness weakness. Patient denies any lightheadedness dizziness or near syncopal episode. Patient denies any chest pain palpitations difficulty breathing shortness of breath per patient denies any swelling to legs or calf tenderness. - Related Data Home Medications Medication Instructions Recorded Confirmed Cyclobenzaprine [Flexeril] 10 mg PO TID 02/28/16 12/11/18 Hydrocodone/Acetaminophen [[place] 1 tab PO TID PRN 03/17/18 12/11/18 10-325] traMADol HCl [Ultram] 50 mg PO BID 03/17/18 12/11/18 Metoprolol Tartrate [Lopressor] 25 mg PO DAILY 12/11/18 12/11/18 Allergies Allergy/AdvReac Type Severity Reaction Status Date / Time No Known Allergies Allergy Verified 12/11/18 16:00 Review of Systems ROS Statement: Those systems with pertinent positive or pertinent negative responses have been documented in the HPI. ROS Other: All systems not noted in ROS Statement are negative. Past Medical History Past Medical History: Hypertension, Myocardial Infarction ([place]), Sleep Apnea/CPAP/BIPAP Additional Past Medical History / Comment(s): Intermittent heavy left-sided CP x1 week, diaphoresis. JEFF w/ bipap. Last Myocardial Infarction Date:: 2004 History of Any Multi-Drug Resistant Organisms: None Reported Past Surgical History: Back Surgery, Cholecystectomy, Orthopedic Surgery Additional Past Surgical History / Comment(s): Cardiac cath 9 yeras ago, no PTCA d/t lesion position (treated medically by Dr. Vargas). Left total knee - D 2016. Right total hip - September. Back surgery x 2 - 15 years ago and January 2016 Past Anesthesia/Blood Transfusion Reactions: Postoperative Nausea & Vomiting (PONV) Additional Past Anesthesia/Blood Transfusion Reaction / Comment(s): Never received blood. Past Psychological History: Anxiety Smoking Status: Never smoker Past Alcohol Use History: Occasional Past Drug Use History: None Reported - Past Family History Father Family Medical History: Cancer Additional Family Medical History / Comment(s): in his 50s of unknown causes. Mother Family Medical History: Cancer Additional Family Medical History / Comment(s): of pancreatic ca in her 50s. Brother(s) Family Medical History: Diabetes Mellitus Sister(s) Family Medical History: Cancer Additional Family Medical History / Comment(s): Breast ca. General Exam - General Exam Comments Initial Comments: GENERAL: Patient is well-developed and well-nourished. Patient is nontoxic and well- hydrated and is in no acute distress. ENT: Neck is soft and supple. No significant lymphadenopathy is noted. Oropharynx is clear. Moist mucous membranes. Neck has full range of motion without eliciting any pain. EYES: The sclera were anicteric and conjunctiva were pink and moist. Extraocular movements were intact and pupils were equal round and reactive to light. Eyelids were unremarkable. PULMONARY: Unlabored respirations. Good breath sounds bilaterally. No audible rales rhonchi or wheezing was noted. CARDIOVASCULAR: There is a regular rate and rhythm without any murmurs gallops or rubs. ABDOMEN: Soft and nontender with normal bowel sounds. SKIN: Skin is clear with no lesions or rashes and otherwise unremarkable. NEUROLOGIC: Patient is alert and oriented x3. Cranial nerves II through XII are grossly intact. Motor and sensory are also intact. Normal speech, volume and content. Symmetrical smile. MUSCULOSKELETAL: Normal extremities with adequate strength and full range of motion. LYMPHATICS: No significant lymphadenopathy is noted PSYCHIATRIC: Normal psychiatric evaluation. Limitations: no limitations Course Vital Signs 12/11/18 12/11/18 12/11/18 15:15 16:17 17:00 Temperature 98.8 F Pulse Rate 98 105 H Respiratory 18 18 18 Rate Blood Pressure 191/138 180/113 163/103 O2 Sat by Pulse 91 L 96 94 L Oximetry Medical Decision Making - Medical Decision Making EKG shows normal sinus rhythm at 95 bpm SC interval is on a 48 QRSs 152 QT interval 418 QTC is 525. Patient's EKG has a right bundle alexandrea block. There is no ST segment elevation or depression. Chest shows no acute abnormality. I went back into the patient's blood pressure is 155/103 I gave him 1.25 of Vasotec at that time. Patient states he is still completely asymptomatic and he did not want to stay any further for a workup because his initial labs were normal and he would follow-up with his primary medical care doctor and he was start taking his blood pressure medications immediately. - Lab Data Result diagrams: 12/11/18 15:29 12/11/18 15:29 Lab Results 12/11/18 12/11/18 12/11/18 Range/Units 15:29 15:29 15:29 WBC 11.3 H (3.8-10.6) k/uL RBC 5.87 (4.30-5.90) m/uL Hgb 16.0 (13.0-17.5) gm/dL Hct 49.4 (39.0-53.0) % MCV 84.2 (80.0-100.0) fL MCH 27.3 (25.0-35.0) pg MCHC 32.4 (31.0-37.0) g/dL RDW 15.6 H (11.5-15.5) % Plt Count 273 (150-450) k/uL Neutrophils % 83 % Lymphocytes % 10 % Monocytes % 4 % Eosinophils % 1 % Basophils % 0 % Neutrophils # 9.3 H (1.3-7.7) k/uL Lymphocytes # 1.1 (1.0-4.8) k/uL Monocytes # 0.5 (0-1.0) k/uL Eosinophils # 0.1 (0-0.7) k/uL Basophils # 0.0 (0-0.2) k/uL PT 10.6 (9.0-12.0) sec INR 1.0 (<1.2) APTT 24.2 (22.0-30.0) sec Sodium 138 (137-145) mmol/L Potassium 4.3 (3.5-5.1) mmol/L Chloride 103 (98-107) mmol/L Carbon Dioxide 29 (22-30) mmol/L Anion Gap 6 mmol/L BUN 15 (9-20) mg/dL Creatinine 0.83 (0.66-1.25) mg/dL Est GFR (CKD-EPI)AfAm >90 (>60 ml/min/1.73 sqM) Est GFR (CKD-EPI)NonAf >90 (>60 ml/min/1.73 sqM) Glucose 109 H (74-99) mg/dL Calcium 9.5 (8.4-10.2) mg/dL Magnesium 1.7 (1.6-2.3) mg/dL Total Bilirubin 0.6 (0.2-1.3) mg/dL AST 60 H (17-59) U/L ALT 51 (21-72) U/L Alkaline Phosphatase 79 (38-126) U/L Troponin I (0.000-0.034) ng/mL Total Protein 7.8 (6.3-8.2) g/dL Albumin 4.5 (3.5-5.0) g/dL 12/11/18 Range/Units 15:29 WBC (3.8-10.6) k/uL RBC (4.30-5.90) m/uL Hgb (13.0-17.5) gm/dL Hct (39.0-53.0) % MCV (80.0-100.0) fL MCH (25.0-35.0) pg MCHC (31.0-37.0) g/dL RDW (11.5-15.5) % Plt Count (150-450) k/uL Neutrophils % % Lymphocytes % % Monocytes % % Eosinophils % % Basophils % % Neutrophils # (1.3-7.7) k/uL Lymphocytes # (1.0-4.8) k/uL Monocytes # (0-1.0) k/uL Eosinophils # (0-0.7) k/uL Basophils # (0-0.2) k/uL PT (9.0-12.0) sec INR (<1.2) APTT (22.0-30.0) sec Sodium (137-145) mmol/L Potassium (3.5-5.1) mmol/L Chloride (98-107) mmol/L Carbon Dioxide (22-30) mmol/L Anion Gap mmol/L BUN (9-20) mg/dL Creatinine (0.66-1.25) mg/dL Est GFR (CKD-EPI)AfAm (>60 ml/min/1.73 sqM) Est GFR (CKD-EPI)NonAf (>60 ml/min/1.73 sqM) Glucose (74-99) mg/dL Calcium (8.4-10.2) mg/dL Magnesium (1.6-2.3) mg/dL Total Bilirubin (0.2-1.3) mg/dL AST (17-59) U/L ALT (21-72) U/L Alkaline Phosphatase (38-126) U/L Troponin I 0.013 (0.000-0.034) ng/mL Total Protein (6.3-8.2) g/dL Albumin (3.5-5.0) g/dL Disposition Clinical Impression: Hypertension Disposition: HOME SELF-CARE Condition: Good Instructions (If sedation given, give patient instructions): Hypertension (ED) Is patient prescribed a controlled substance at d/c from ED?: No Referrals: Judah Coreas MD [Primary Care Provider] - 1-2 days Time of Disposition: 17:03
[2018-12-11 16:10] LABS: Basophils % (A) 0 %; Eosinophils # (A) 0.1 k/uL (0-0.7); Eosinophils % (A) 1 %; HCT 49.4 % (39.0-53.0); Lymphocytes # (A) 1.1 k/uL (1.0-4.8); Lymphocytes % (A) 10 %; MCH 27.3 pg (25.0-35.0); MCHC 32.4 g/dL (31.0-37.0); MCV 84.2 fL (80.0-100.0); Mean Platelet Volume 6.9; Monocytes # (A) 0.5 k/uL (0-1.0); Monocytes % (A) 4 %; Neutrophils # (A) 9.3 k/uL (1.3-7.7); Neutrophils % (A) 83 %; Platelet Count 273 k/uL (150-450); RBC 5.87 m/uL (4.30-5.90); RDW 15.6 % (11.5-15.5); WBC 11.3 k/uL (3.8-10.6)
[2018-12-11 16:19] LABS: ALT 51 U/L (21-72); AST 60 U/L (17-59); Albumin 4.5 g/dL (3.5-5.0); Alkaline Phosphatase 79 U/L (38-126); Anion Gap 6 mmol/L; Blood Urea Nitrogen 15 mg/dL (9-20); Calcium 9.5 mg/dL (8.4-10.2); Carbon Dioxide 29 mmol/L (22-30); Chloride 103 mmol/L (98-107); Glucose 109 mg/dL (74-99); Magnesium 1.7 mg/dL (1.6-2.3); Partial Thromboplastin Time 24.2 sec (22.0-30.0); Potassium 4.3 mmol/L (3.5-5.1); Prothrombin Time 10.6 sec (9.0-12.0); Sodium 138 mmol/L (137-145); Total Bilirubin 0.6 mg/dL (0.2-1.3); Total Protein 7.8 g/dL (6.3-8.2)
--- NOTE | 2018-12-11 16:30 | XR ---
EXAMINATION TYPE: XR chest 2V DATE OF EXAM: 12/11/2018 COMPARISON: 03/21/2018 HISTORY: 53-year-old male with chest pain TECHNIQUE: PA and lateral views FINDINGS: Heart upper limits of normal in size. Aorta within normal limits. Diffuse interstitial prominence has a chronic appearance. No consolidation or pleural effusion. IMPRESSION: Borderline cardiomegaly. Chronic changes without acute process seen.
[2018-12-11] MEDS ORDERED: ENALAPRILAT 1.25 MG/ML 1 ML VIAL IVP STA (17:02)
[2018-12-11 18:11] VITALS: BP 151/91; PULSE 106
== END 2018-12-11 18:16 | disposition home or self-care (01) ==
LOC: EC 15:13
DX: I10 Essential (primary) hypertension (principal); I45.10 Unspecified right bundle-branch block; I25.2 Old myocardial infarction; G47.33 Obstructive sleep apnea (adult) (pediatric); Z79.891 Long term (current) use of opiate analgesic; Z79.899 Other long term (current) drug therapy; Z95.818 Presence of other cardiac implants and grafts; Z99.89 Dependence on other enabling machines and devices
CPT/HCPCS: 36415; 93005; 80053; 83735; 84484; 85025; 85610; 85730; 71046; 99284; 96374; 96375 ×2; 96361; J2060; J0360

== ENCOUNTER → 2019-03-11 | Outpatient (CLI) | payer BC ==
[2019-03-11 18:24] LABS: African American GFR (CKD) 79.5 (60.0-200.0); Albumin 3.9 g/dL (3.80-4.90); Albumin/Globulin Ratio 1.3 (1.60-3.17); Anion Gap 9.4 mmol/L (4.00-12.00); BUN/Creat Ratio 9.17 Ratio (12.00-20.00); Calcium 9.1 mg/dL (8.7-10.3); Carbon Dioxide 27.6 mmol/L (21.6-31.8); Total Bilirubin 0.9 mg/dL (0.2-1.2); Total Protein 6.9 g/dL (6.2-8.2)
[2019-03-11 18:31] LABS: T4, Free (Free Thyroxine) 0.9 ng/dL (0.80-1.80)
[2019-03-11 19:48] LABS: Hemoglobin A1C 6.4 % (4.0-6.0)
== END | disposition home or self-care (01) ==
LOC: LABWHC1 14:20
PROVIDERS: ATTEND Physician Assistant
DX: I10 Essential (primary) hypertension (principal); E11.9 Type 2 diabetes mellitus without complications; K85.90 Acute pancreatitis without necrosis or infection, unspecified
CPT/HCPCS: 36415; 80053; 82150; 83036; 83690; 84439; 84443; 84481

== ENCOUNTER 2019-04-01 20:06 | Emergency (ER) | payer BC ==
[2019-04-01 20:24] VITALS: TEMP 98.1
--- NOTE | 2019-04-01 21:17 | XR ---
EXAMINATION TYPE: XR knee limited LT DATE OF EXAM: 04/01/2019 COMPARISON: NONE HISTORY: Pain TECHNIQUE: 2 views FINDINGS: There is a spiral fracture of the distal shaft of the femur. There is separation of the fra gments almost 2 cm. There is a left knee prosthesis. IMPRESSION: Spiral fracture of the distal femur.
--- NOTE | 2019-04-01 21:18 | XR ---
EXAMINATION TYPE: XR femur LT DATE OF EXAM: 04/01/2019 COMPARISON: NONE HISTORY: Pain TECHNIQUE: 4 views FINDINGS: There is spiral fracture distal shaft of the femur. There is separation of the fragments al most 2 cm. The hip joint is intact. There is a left knee prosthesis that appears in anatomic position . IMPRESSION: Spiral fracture of the femur.
[2019-04-01] MEDS ORDERED: HYDROmorphone 1 MG/ML 1 ML SYRINGE IVP STA (21:20)
[2019-04-01] MEDS ORDERED: ONDANSETRON 4 MG/2 ML VIAL IVP STA (21:21)
[2019-04-01] MEDS ORDERED: DIAZEPAM 5 MG/ML 2 ML INJ IVP STA (21:58)
[2019-04-01 22:19] LABS: Basophils % (A) 0 %; Eosinophils # (A) 0.1 k/uL (0-0.7); Eosinophils % (A) 1 %; HCT 51.2 % (39.0-53.0); HGB 16.5 gm/dL (13.0-17.5); Lymphocytes # (A) 1.1 k/uL (1.0-4.8); Lymphocytes % (A) 10 %; MCH 29.5 pg (25.0-35.0); MCHC 32.2 g/dL (31.0-37.0); MCV 91.6 fL (80.0-100.0); Mean Platelet Volume 7.1; Monocytes # (A) 0.5 k/uL (0-1.0); Monocytes % (A) 4 %; Neutrophils % (A) 83 %; Platelet Count 261 k/uL (150-450); RBC 5.59 m/uL (4.30-5.90); RDW 15.5 % (11.5-15.5); WBC 10.8 k/uL (3.8-10.6)
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
[2019-04-01 22:36] LABS: Albumin 4.2 g/dL (3.5-5.0); Calcium 8.9 mg/dL (8.4-10.2); Potassium 4.1 mmol/L (3.5-5.1); Total Bilirubin 0.9 mg/dL (0.2-1.3); Total Protein 8.2 g/dL (6.3-8.2)
[2019-04-01] MEDS ORDERED: NALOXONE 0.4 MG/ML 1 ML VIAL SQ STA (22:40)
[2019-04-01] MEDS ORDERED: NALOXONE 0.4 MG/ML 10 ML VIAL IVP STA (22:40)
[2019-04-01 22:44] LABS: INR 1.2 (<1.2); Partial Thromboplastin Time 23.9 sec (22.0-30.0)
[2019-04-01] MEDS ORDERED: KETOROLAC 30 MG/ML 1 ML VIAL IVP STA (23:18)
[2019-04-02 01:44] VITALS: BP 134/76; PULSE 91; RESP 22
== END 2019-04-02 00:30 | disposition short-term general hospital (02) ==
LOC: EC 20:06
DX: S72.342A Displaced spiral fracture of shaft of left femur, initial encounter for closed fracture (principal); F10.129 Alcohol abuse with intoxication, unspecified; G47.33 Obstructive sleep apnea (adult) (pediatric); I25.2 Old myocardial infarction; F41.9 Anxiety disorder, unspecified; Z79.891 Long term (current) use of opiate analgesic; Z79.899 Other long term (current) drug therapy; Z95.818 Presence of other cardiac implants and grafts; Z96.652 Presence of left artificial knee joint; Z99.89 Dependence on other enabling machines and devices; W16.612A Jumping or diving into natural body of water striking water surface causing other injury, initial encounter; Y93.F9 Activity, other caregiving; Y92.828 Other wilderness area as the place of occurrence of the external cause
CPT/HCPCS: 82075; 36415; 80053; 85025; 85610; 85730; 73552; 73560; 99285; 96374; 96375 ×4; J2310; J3360; J2405; J1885; J1170

== ENCOUNTER → 2020-06-15 | Outpatient (CLI) | payer BC, MEDICARE ==
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
== END | disposition home or self-care (01) ==
LOC: SLEEP 13:16
PROVIDERS: ATTEND Internal Medicine
DX: G47.33 Obstructive sleep apnea (adult) (pediatric) (principal); I10 Essential (primary) hypertension; I25.10 Atherosclerotic heart disease of native coronary artery without angina pectoris; F41.9 Anxiety disorder, unspecified; M43.9 Deforming dorsopathy, unspecified; Z96.641 Presence of right artificial hip joint; Z96.652 Presence of left artificial knee joint; Z99.89 Dependence on other enabling machines and devices; Z79.891 Long term (current) use of opiate analgesic; Z79.899 Other long term (current) drug therapy; I25.2 Old myocardial infarction
CPT/HCPCS: 99211

== ENCOUNTER 2021-11-22 09:56 | Emergency (ER) | payer BC, MEDICARE ==
[2021-11-22 10:07] VITALS: BP 174/88; PULSE 82; RESP 18; TEMP 97
--- NOTE | 2021-11-22 11:02 | ED ---
General Adult HPI - General Chief complaint: Extremity Injury, Upper Stated complaint: Rt Wrist Injury Time Seen by Provider: 11/22/21 10:22 Source: patient Mode of arrival: ambulatory Limitations: no limitations - History of Present Illness Initial comments: This 56-year-old male presents emergency Department with right wrist pain after slipping and falling onto it this morning around 5:30 AM. Patient states she was fishing and it was a little bit smelly when he went to turn and slipped on a rock, falling on his right wrist onto concrete. Patient states he did have rods and pins placed into his right hand around 1984 that have since been removed and has had no trouble with it. Patient states he did take tramadol and [place] that he has a home for this pain. Patient states his pain is 10/10 and is aching. Patient states just below his thumb on his wrist is very most of the pain is. He denies any loss of sensation or loss of range of motion. He denies any chest pain, shortness of breath, abdominal pain, nausea, vomiting, change in bowel or bladder, change in appetite, hitting his head, loss of consciousness. - Related Data Home Medications Medication Instructions Recorded Confirmed Hydrocodone/Acetaminophen [[place] 1 tab PO TID PRN 04/01/19 11/22/21 10-325] traMADol HCL [Ultram] 50 mg PO BID PRN 04/01/19 11/22/21 Cyclobenzaprine [Flexeril] 5 mg PO BID PRN 11/22/21 11/22/21 Allergies Allergy/AdvReac Type Severity Reaction Status Date / Time No Known Allergies Allergy Verified 11/22/21 12:00 Review of Systems ROS Statement: Those systems with pertinent positive or pertinent negative responses have been documented in the HPI. ROS Other: All systems not noted in ROS Statement are negative. Past Medical History Past Medical History: Hypertension, Myocardial Infarction ([place]), Sleep Apnea/CPAP/BIPAP Additional Past Medical History / Comment(s): Intermittent heavy left-sided CP x1 week, diaphoresis. JEFF w/ bipap. Last Myocardial Infarction Date:: 2004 History of Any Multi-Drug Resistant Organisms: None Reported Past Surgical History: Back Surgery, Cholecystectomy, Orthopedic Surgery Additional Past Surgical History / Comment(s): Cardiac cath 9 yeras ago, no PTCA d/t lesion position (treated medically by Dr. Vargas). Left total knee - June 2017. Right total hip - September. Back surgery x 2 - 15 years ago and January 2016 Past Anesthesia/Blood Transfusion Reactions: Postoperative Nausea & Vomiting (PONV) Additional Past Anesthesia/Blood Transfusion Reaction / Comment(s): Never received blood. Past Psychological History: Anxiety Smoking Status: Never smoker Past Alcohol Use History: Occasional Past Drug Use History: None Reported - Past Family History Father Family Medical History: Cancer Additional Family Medical History / Comment(s): in his 50s of unknown causes. Mother Family Medical History: Cancer Additional Family Medical History / Comment(s): of pancreatic ca in her 50s. Brother(s) Family Medical History: Diabetes Mellitus Sister(s) Family Medical History: Cancer Additional Family Medical History / Comment(s): Breast ca. General Exam Limitations: no limitations General appearance: alert, in no apparent distress Head exam: Present: atraumatic, normocephalic, normal inspection Eye exam: Present: normal appearance, PERRL, EOMI. Absent: scleral icterus, conjunctival injection, periorbital swelling Pupils: Present: normal accommodation ENT exam: Present: normal exam, mucous membranes moist Neck exam: Present: normal inspection. Absent: tenderness, meningismus, lymphadenopathy Respiratory exam: Present: normal lung sounds bilaterally. Absent: respiratory distress, wheezes, rales, rhonchi, stridor Cardiovascular Exam: Present: regular rate, normal rhythm, normal heart sounds. Absent: systolic murmur, diastolic murmur, rubs, gallop, clicks GI/Abdominal exam: Present: soft, normal bowel sounds, hernia (Reducible umbilical hernia that patient states been present for years and is being watched by his primary care provider- patient states it is unchanged and not painful). Absent: distended, tenderness, guarding, rebound, rigid Extremities exam: Present: normal inspection, full ROM, tenderness (Patient with tenderness to palpation over distal radius. Ulnar and radial pulses palpable. Mild swelling to right wrist. No erythema, warmth or fluid collection. Patient with full sensation. Patient able to squeeze my fingers but does state there is pain when he does so. ), normal capillary refill, other (Patient able to slightly flex and extend right wrist but does experience pain when doing so. Patient without any snuffbox tenderness). Absent: pedal edema, joint swelling, calf tenderness Back exam: Present: full ROM. Absent: CVA tenderness (R), CVA tenderness (L), paraspinal tenderness, vertebral tenderness Neurological exam: Present: alert, oriented X3, CN II-XII intact Psychiatric exam: Present: normal affect, normal mood Skin exam: Present: warm, dry, intact, normal color. Absent: rash Course Vital Signs 11/22/21 10:05 Temperature 97.0 F L Pulse Rate 82 Respiratory 18 Rate Blood Pressure 174/88 O2 Sat by Pulse 95 Oximetry Procedures - Orthopedic Splinting/Casting Injury #1 Side: right Upper Extremity Immobilizer: thumb spica, Allan wrap, synthetic pre-padded splint Medical Decision Making - Medical Decision Making This 56-year-old male presents to the emergency Department with lateral right wrist pain after falling on it this morning. Right wrist and hand x-ray impression: No acute fracture or dislocation present. Mild to moderate diffuse soft tissue swelling throughout the fingers mild to moderate narrowing throughout the PIP and DIP joints. Thumb spica splint applied to right wrist. Patient did not have any snuffbox tenderness. Patient instructed to follow up with orthopedics. Patient states he does have an orthopedic provider already that he states he will call first. Strict return precautions were discussed. Patient verbally agreed to plan. Patient sent home in stable condition. Case discussed in detail with my attending, . Disposition Clinical Impression: Wrist pain, right Disposition: HOME SELF-CARE Condition: Stable Instructions (If sedation given, give patient instructions): Wrist Injury (ED), Wrist Sprain (ED) Additional Instructions: Please follow-up with orthopedics in next 1-2 days. Follow-up with your primary care provider next 1-2 days. Return to the emergency department with any new, worsening, or concerning symptoms. Is patient prescribed a controlled substance at d/c from ED?: No Referrals: Judah Coreas MD [Primary Care Provider] - 1-2 days Nancy Canas DO [Doctor of Osteopathic Medicine] - 1-2 days Time of Disposition: 12:32
--- NOTE | 2021-11-22 11:06 | XR ---
EXAMINATION TYPE: XR wrist complete RT, XR hand complete RT DATE OF EXAM: 11/22/2021 CLINICAL HISTORY: Pain after slip and fall injury. TECHNIQUE: Frontal, lateral and oblique images of the right hand and wrist are obtained. 4 view sca phoid view is performed. COMPARISON: None FINDINGS: There is no acute fracture/dislocation evident in the right wrist. Carpal joint spaces are maintained. The overlying soft tissue appears unremarkable. Images of the right hand show old healed fracture deformity of the fourth and fifth metacarpals. No a cute fracture or dislocation is seen. Mild to moderate diffuse soft tissue swelling throughout the fi ngers. Mild to moderate narrowing throughout the PIP and DIP joints. IMPRESSION: There is no acute fracture or dislocation in the right hand or wrist.
== END 2021-11-22 12:29 | disposition home or self-care (01) ==
LOC: EC 09:56
DX: M25.531 Pain in right wrist (principal); I10 Essential (primary) hypertension; I25.2 Old myocardial infarction; F41.9 Anxiety disorder, unspecified; Z90.49 Acquired absence of other specified parts of digestive tract; W01.0XXA Fall on same level from slipping, tripping and stumbling without subsequent striking against object, initial encounter
CPT/HCPCS: 29125; 99283

== ENCOUNTER → 2022-09-27 | Outpatient (CLI) | payer BC, MEDICARE | END | disposition home or self-care (01) | LOC: LABWHC1 15:59 | PROVIDERS: ATTEND Internal Medicine Gastroenterology | DX: Z53.9 Procedure and treatment not carried out, unspecified reason (principal) ==

== ENCOUNTER → 2022-11-21 | Outpatient (CLI) | payer BC, MEDICARE ==
[2022-11-22 01:22] LABS: Basophils # (A) 0.06 X 10*3/uL (0.00-0.10); Basophils % (A) 0.5 %; Eosinophils # (A) 0.19 X 10*3/uL (0.04-0.35); Eosinophils % (A) 1.6 %; HCT 45.2 % (39.6-50.0); HGB 14.9 g/dL (13.0-17.0); Immature Grans, Automated 0.4 %; Lymphocytes # (A) 1.19 X 10*3/uL (0.90-5.00); Lymphocytes % (A) 9.7 %; MCH 31.8 pg (27.0-32.0); MCV 96.4 fL (80.0-97.0); Mean Platelet Volume 10.5 fL (9.5-12.2); Monocytes # (A) 0.95 X 10*3/uL (0.20-1.00); Monocytes % (A) 7.8 %; NRBC Per 100 WBC 0 /100 WBCS (0.0-0.0); Neutrophils # (A) 9.78 X 10*3/uL (1.80-7.70); Platelet Count 221 X 10*3/uL (140-440); RBC 4.69 X 10*6/uL (4.40-5.60); WBC 12.22 X 10*3/uL (4.50-10.00)
== END | disposition home or self-care (01) ==
LOC: LABPAT 13:10
PROVIDERS: ATTEND Surgery
DX: Z01.812 Encounter for preprocedural laboratory examination (principal)
CPT/HCPCS: 85025

== ENCOUNTER → 2022-11-21 | Outpatient (CLI) | payer BC, MEDICARE ==
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
== END | disposition home or self-care (01) ==
LOC: RADCTMAIN 13:45
PROVIDERS: ATTEND Urology
DX: N40.0 Benign prostatic hyperplasia without lower urinary tract symptoms (principal); K40.20 Bilateral inguinal hernia, without obstruction or gangrene, not specified as recurrent; K57.30 Diverticulosis of large intestine without perforation or abscess without bleeding
CPT/HCPCS: 74178; 74400; Q9967

== ENCOUNTER 2022-11-26 10:24 | Day surgery (SDC) | payer BC, MEDICARE ==
[2022-11-21 10:56] VITALS: BMI 42.5
[2022-11-26 11:17] VITALS: TEMP 98.2
[2022-11-26] MEDS ORDERED: LACTATED RINGERS 1,000 ML IV ONE (11:25)
[2022-11-26] MEDS ORDERED: PROPOFOL 10 MG/ML 20 ML VIAL IV ONE (11:36)
[2022-11-26] MEDS ORDERED: LIDOCAINE 2% INJ 20 MG/ML (2 ML VIAL) ONE (11:36)
--- NOTE | 2022-11-26 12:01 | P.OP ---
Date of Procedure: 11/26/22 Preoperative Diagnosis: GI bleed Postoperative Diagnosis: Antral gastritis Diverticulosis Procedure(s) Performed: EGD Colonoscopy Anesthesia: MAC Surgeon: Casey Black Pathology: other (Antrum) Condition: stable Disposition: PACU Description of Procedure: The patient's placed on the endoscopy table in the lateral position. He received IV sedation. The gastro-/oropharynx passed in the esophagus and stomach. Scope was then placed through the pylorus. The first and second portion of the duodenum appeared normal. Scope was then brought back the antrum and this appeared mildly inflamed. A biopsies performed. Scope was unretroflexed and remainder the stomach appeared normal. The GE junction was at 47 is. The distal esophagus appeared normal. The proximal esophagus. Normal. Scope withdrawn for patient. Next, digital rectal exam was performed. This revealed no ebonized. Flexible colonoscope was then placed patient anus and passed throughout the entire colon. The ileocecal valve. The cecum, ascending and transverse colon appeared normal. In the descending and; was moderate diverticular changes. The scope summer back the rectum and this appeared normal. Scope withdrawn for patient.
[2022-11-26 12:36] VITALS: PULSE 62; RESP 18
[2022-11-26 12:40] VITALS: BP 166/90
== END 2022-11-26 12:56 | disposition home or self-care (01) ==
LOC: ORWHC2ENDO 10:24
PROVIDERS: ATTEND Surgery
DX: K29.50 Unspecified chronic gastritis without bleeding (principal); K57.30 Diverticulosis of large intestine without perforation or abscess without bleeding; I10 Essential (primary) hypertension; G47.33 Obstructive sleep apnea (adult) (pediatric); Z99.89 Dependence on other enabling machines and devices
CPT/HCPCS: 88305; 45378; 43239; J2704; J2001

== ENCOUNTER 2022-11-27 06:40 | Day surgery (SDC) | payer BC, MEDICARE ==
[2022-11-21 11:21] VITALS: BMI 42.5
[~2022-11-27 06:40] MED LIST changes: -ACETAMINOPHEN TAB 500 MG TAB PO ONE; +ACETAMINOPHEN TAB 500 MG TAB PO PRN; -DEXAMETHASONE SOD PHOSPHATE 10 MG/ML 1 ML VIAL IV ONE; +HEPARIN SODIUM,PORCINE/PF 5,000 UNIT/0.5 ML SYRINGE SQ PRN; -MELOXICAM 7.5 MG TAB PO ONE; -TRANEXAMIC ACID 1,000 MG in SODIUM CHLORIDE 0.9% 50 ML IVPB ONE; +ceFAZolin 3 GM in SODIUM CHLORIDE 0.9% 100 ML IVPB PRN; +fentaNYL (PF) 50 MCG/ML 2 ML AMP IV PRN
[2022-11-27] MEDS ORDERED: ONDANSETRON 4 MG/2 ML VIAL ONE (07:28)
[2022-11-27] MEDS ORDERED: DEXAMETHASONE SOD PHOSPHATE 4 MG/ML 1 ML VIAL IV ONE (07:32)
[2022-11-27] MEDS ORDERED: MIDAZOLAM 2 MG/2 ML VIAL IVP ONE (07:50)
[2022-11-27] MEDS ORDERED: fentaNYL (PF) 50 MCG/ML 2 ML AMP IVP ONE (07:53)
--- NOTE | 2022-11-27 08:23 | P.ANPRN ---
Procedure Note - Anesthesia - Nerve Block Performed Bilateral Rectus Abdominis Time Out Performed: Yes (07:50) Date of Procedure: 11/27/22 Procedure Start Time: 07:50 Procedure Stop Time: 07:58 Location of Patient: PreOp Indication: Acute Post-Operative Pain, Requested by Surgeon (Dr Black) Sedation Type: Sedate with meaningful contact maintained Preparation: Sterile Prep Position: Supine Catheter: None Needle Types: Pajunk Needle Gauge: 21 Ultrasound used to visualize needle placement: Yes Ultrasound used to observe medication spread: Yes Injectate: 0.5% Ropivacaine (see comment for volume) (15cc + 10cc PF Normal saline each side) Blood Aspirated: No Pain Paresthesia on Injection Noted: No Resistance on Injection: Normal Image Stored and Saved: Yes Events: Uneventful and Well Tolerated
[2022-11-27] MEDS ORDERED: SCOPOLAMINE 1 MG/72 HR PATCH TRANSDERM ONE (08:40)
[2022-11-27] MEDS ORDERED: ROCURONIUM 10 MG/ML (5 ML VIAL) IV ONE (08:46)
[2022-11-27] MEDS ORDERED: KETAMINE 10 MG/ML 20 ML VIAL ONE (08:46)
[2022-11-27] MEDS ORDERED: MIDAZOLAM 2 MG/2 ML VIAL ONE (08:46)
[2022-11-27] MEDS ORDERED: ROPIVACAINE 5 MG/ML 30 ML VIAL ONE (08:46)
[2022-11-27] MEDS ORDERED: PROPOFOL 10 MG/ML 20 ML VIAL IV ONE (08:46)
[2022-11-27] MEDS ORDERED: SUCCINYLCHOLINE CHLORIDE 200 MG/10 ML VIAL IV ONE (08:46)
[2022-11-27] MEDS ORDERED: KETOROLAC 15 MG/ML 1 ML VIAL ONE (08:46)
[2022-11-27] MEDS ORDERED: fentaNYL (PF) 50 MCG/ML 2 ML AMP ONE (08:46)
[2022-11-27] MEDS ORDERED: NEOSTIGMINE 1 MG/ML 10 ML VIAL ONE (08:46)
[2022-11-27] MEDS ORDERED: SODIUM CHLORIDE 0.9% (PF) 10 ML VIAL ONE (08:46)
[2022-11-27] MEDS ORDERED: GLYCOPYRROLATE 0.2 MG/ML 2 ML VIAL ONE (08:46)
[2022-11-27] MEDS ORDERED: BUPIVACAIN-EPI 0.25%-1:200,000 30 ML VIAL SQ ONE (09:07)
[2022-11-27] MEDS ORDERED: LACTATED RINGERS 1,000 ML IV ONE (10:11)
--- NOTE | 2022-11-27 10:14 | P.OP ---
Date of Procedure: 11/27/22 Preoperative Diagnosis: Incarcerated ventral hernia Postoperative Diagnosis: Incarcerated ventral hernia 10 cm Procedure(s) Performed: Laparoscopic robotic-assisted repair of incarcerated ventral hernia Partial omentectomy Transverse abdominis plane block Anesthesia: PEPPER Surgeon: Casey Black Estimated Blood Loss (ml): 5 Pathology: other (Omentum) Condition: stable Disposition: PACU Description of Procedure: MThe patient was placed on the operating table in the supine position. He received general anesthesia. His abdomen was prepped and draped usual fashion. Using a 5 mm optical trocar under direct visualization the peritoneal cavity was entered in the left upper quadrant. The abdomen was then insufflated. The laparoscope was placed back into the perineal cavity. Next a 8 mm robotic trocar was placed in the left lower quadrant and a 12 mm robotic trocar was placed in the left lateral position. The original 5 mm trocar was exchanged for a 8 mm robotic trocar. The patient's placed in the left side up position. A four-quadrant transversus abdominis plane block was then performed using 1% local Xylocaine. And the patient was docked to the robot. The incisional hernia was visualized. The hernia was approximately 10 cm length. Using hook cautery the peritoneum over the incisional hernia was excised. Incarcerated omentum was excised and sent to pathology. A 10 mm Endo Catch bag was used to retrieve the omentum. The fascial opening was repaired using 0V LOC suture. Next a piece of 11 cm round ventral light ST mesh was placed into the. Cavity and secured with 2 OV lock suture. The patient was undocked the robot. The needles were retrieved. The fascia of the 12 mm trocar site was closed with 0 Ethibond suture. Skin was closed interrupted 3-0 Monocryl suture. Dermabond dressings was applied. Patient tolerated procedure well and was sent to recovery room stable condition.
[2022-11-27 10:34] VITALS: TEMP 96.8
[2022-11-27 11:38] VITALS: RESP 18
[2022-11-27 12:15] VITALS: BP 143/67; PULSE 78
== END 2022-11-27 12:38 | disposition home or self-care (01) ==
LOC: OR 06:40
PROVIDERS: ATTEND Surgery
DX: K43.6 Other and unspecified ventral hernia with obstruction, without gangrene (principal); K66.0 Peritoneal adhesions (postprocedural) (postinfection); G89.18 Other acute postprocedural pain; I10 Essential (primary) hypertension; G47.33 Obstructive sleep apnea (adult) (pediatric); Z99.89 Dependence on other enabling machines and devices; Z79.899 Other long term (current) drug therapy
CPT/HCPCS: 49592; S2900; 64488; 86850; 86900; 86901; 88302

== ENCOUNTER 2022-12-21 05:57 | Day surgery (SDC) | payer BC, MEDICARE ==
[2022-12-19 15:35] VITALS: BMI 42.5
[2022-12-21] MEDS ORDERED: ALPRAZolam 0.25 MG TAB PO PRN (05:59)
[2022-12-21] MEDS ORDERED: HEPARIN SODIUM,PORCINE 2,500 UNIT in SODIUM CHLORIDE 0.9% 250 ML IRRIGATION PRN (05:59)
[2022-12-21] MEDS ORDERED: HEPARIN SODIUM,PORCINE 10,000 UNIT in SODIUM CHLORIDE 0.9% 1,000 ML IRRIGATION PRN (05:59)
[2022-12-21] MEDS ORDERED: NITROGLYCERIN SL TABS 0.4 MG TAB SUBLINGUAL PRN (05:59)
[2022-12-21] MEDS ORDERED: ALPRAZolam 0.5 MG TAB PO PRN (05:59)
[2022-12-21] MEDS ORDERED: SODIUM CHLORIDE 0.9% 1,000 ML in EMPTY BAG 1 BAG IV SCH (05:59)
[2022-12-21] MEDS ORDERED: SODIUM CHLORIDE 0.9% 1,000 ML IV ONE (06:28)
[2022-12-21 06:31] VITALS: RESP 16; TEMP 97.1
[2022-12-21 06:35] LABS: African American GFR (CKD) >90 (>60 ml/min/1.73 sqM); Anion Gap 3 mmol/L; Blood Urea Nitrogen 11 mg/dL (9-20); Calcium 8.8 mg/dL (8.4-10.2); Carbon Dioxide 33 mmol/L (22-30); Chloride 102 mmol/L (98-107); Glucose 136 mg/dL (74-99); Non-African American GFR(CKD) >90 (>60 ml/min/1.73 sqM); Sodium 138 mmol/L (137-145)
[2022-12-21 06:48] LABS: Potassium 4.7 mmol/L (3.5-5.1)
[2022-12-21] MEDS ORDERED: ATORVASTATIN 80 MG TAB PO ONE (07:00)
[2022-12-21] MEDS ORDERED: ASPIRIN 325 MG TAB PO ONE (07:00)
[2022-12-21] MEDS ORDERED: VERAPAMIL 2.5 MG/ML 2 ML AMP ONE (07:24)
[2022-12-21] MEDS ORDERED: fentaNYL (PF) 50 MCG/ML 2 ML AMP ONE (07:35)
[2022-12-21] MEDS ORDERED: fentaNYL (PF) 50 MCG/ML 2 ML AMP IV ONE (07:36)
[2022-12-21] MEDS ORDERED: MIDAZOLAM 2 MG/2 ML VIAL IV ONE (07:36)
[2022-12-21] MEDS ORDERED: LIDOCAINE 1% INJ 10MG/ML (5 ML VIAL-PF) SQ ONE (07:37)
[2022-12-21] MEDS ORDERED: VERAPAMIL SYRINGE (5 MG/10 ML) INTRAARTER ONE (07:40)
[2022-12-21] MEDS ORDERED: HEPARIN SODIUM 1,000 UN/ML (10ML VL) ONE (07:41)
[2022-12-21] MEDS ORDERED: HEPARIN SODIUM 1,000 UN/ML (10ML VL) IV ONE (07:42)
[2022-12-21] MEDS ORDERED: IOPAMIDOL-370 100ML BTL INJ ONE (07:51)
--- NOTE | 2022-12-21 07:57 | P.CARDCATH ---
Description of Procedure: PROCEDURES PERFORMED: Left heart catheterization, bilateral coronary angiography INDICATION: Abnormal stress test CONSENT:I have discussed the risks, benefits and alternative therapies for the above-mentioned procedure and for both sedation/analgesia as well as necessary blood product administration, if indicated, as they pertain to this patient. The patient has indicated understanding and acceptance of the risks and procedures discussed. PROCEDURE: After the risks, benefits and alternatives of the above mentioned procedure explained in detail with the patient, informed consent was obtained. Patient was taken to the catheterization lab and prepped and draped in usual fashion. 1% lidocaine was used to anesthetize the right radial artery. A 6- [place]uvian sheath was placed in the right radial artery using modified Seldinger technique. Left coronary angiography was performed with a 5-Peruvian JL 4.0 catheter and right coronary angiography was performed with a 6-[place]uvian AR2 catheter in various views. A 5-[place]uvian FR5 catheter was inserted into the left ventricle and pressure measurements were obtained. The right radial sheath was removed and a TR band was placed with hemostasis achieved. The patient tolerated the procedure well. Patient was transported back to the post catheterization holding area in stable condition. Conscious Sedation: Patient was monitored under the direct supervision of myself for conscious sedation using Versed and fentanyl for a total duration of 16 minutes HEMODYNAMICS: Aorta: 154/90 LV: 149/12, LVEDP 20 SELECTIVE CORONARY ARTERIOGRAPHY: LEFT MAIN: The left main is a large caliber vessel which bifurcates into the LAD and circumflex. There is no significant stenosis. LEFT ANTERIOR DESCENDING CORONARY ARTERY: LAD is a large caliber vessel which wraps around to the apex. There is a mid LAD 30% stenosis and otherwise normal. LEFT CIRCUMFLEX CORONARY ARTERY: Left circumflex is a moderate caliber vessel without significant stenosis. RIGHT CORONARY ARTERY: The right coronary artery is a large caliber vessel which gives off a PDA and PLV branch and is the dominant vessel. There is no significant stenosis. FINAL IMPRESSION: 1. Relatively normal coronary arteries other then mid LAD 30% stenosis 2. Elevated left sided filling pressures PLAN: 1. Aggressive risk factor modification per most recent ACC/AHA guidelines. 2. Follow-up in the office in 1-2 weeks.
[2022-12-21 11:30] VITALS: BP 145/70; PULSE 63
== END 2022-12-21 11:37 | disposition home or self-care (01) ==
LOC: CATHCVL 05:57
PROVIDERS: ATTEND Internal Medicine
DX: I25.10 Atherosclerotic heart disease of native coronary artery without angina pectoris (principal); I10 Essential (primary) hypertension; E78.5 Hyperlipidemia, unspecified; I71.40 Abdominal aortic aneurysm, without rupture, unspecified; F10.90 Alcohol use, unspecified, uncomplicated
CPT/HCPCS: 93458; 80048; C1769; C1894; J2250; J2001; J3010; J1644; Q9967

== ENCOUNTER → 2023-01-07 | Outpatient (CLI) | payer BC, MEDICARE ==
[2023-01-07 23:05] LABS: Basophils # (A) 0.05 X 10*3/uL (0.00-0.10); Basophils % (A) 0.8 %; Eosinophils # (A) 0.49 X 10*3/uL (0.04-0.35); Eosinophils % (A) 8.3 %; HCT 44.7 % (39.6-50.0); HGB 14.5 d/dL (12.0-15.0); Lymphocytes # (A) 1.12 X 10*3/uL (0.90-5.00); MCH 31.3 pg (27.0-32.0); MCHC 32.4 d/dL (32.0-37.0); MCV 96.3 FL (80.0-97.0); Mean Platelet Volume 9.9 FL (9.5-12.2); Monocytes # (A) 0.47 X 10*3/uL (0.20-1.00); NRBC Per 100 WBC 0 X 10*3/uL (0.00-0.01); Neutrophils # (A) 3.74 X 10*3/uL (1.80-7.70); Neutrophils % (A) 63.6 %; Platelet Count 263 X 10*3/uL (140-440); RBC 4.64 X 10*6/uL (4.40-5.60); RDW 14.3 % (11.5-14.5); WBC 5.89 X 10*3/uL (4.50-10.00)
== END | disposition home or self-care (01) ==
LOC: LABPAT 14:21
PROVIDERS: ATTEND Surgery
DX: Z01.812 Encounter for preprocedural laboratory examination (principal); K40.20 Bilateral inguinal hernia, without obstruction or gangrene, not specified as recurrent
CPT/HCPCS: 85025

== ENCOUNTER → 2023-01-09 | Day surgery (SDC) | payer BC, MEDICARE ==
[2023-01-04 15:24] VITALS: BMI 42.5
[~2023-01-09] MED LIST changes: +BUPIVACAINE (PF) 0.25% 30 ML VIAL SQ ONE; +DEXAMETHASONE SOD PHOSPHATE 4 MG/ML 1 ML VIAL IV ONE; +GLYCOPYRROLATE 0.2 MG/ML 2 ML VIAL ONE; +LACTATED RINGERS 1,000 ML IV ONE; +LIDOCAINE 1% (10MG/ML) FOR IV START INTRADERMA PRN; +LIDOCAINE 2% INJ 20 MG/ML (2 ML VIAL) ONE; +MIDAZOLAM 2 MG/2 ML VIAL IV PRN; +MIDAZOLAM 2 MG/2 ML VIAL IVP ONE; +MIDAZOLAM 2 MG/2 ML VIAL ONE; +NEOSTIGMINE 1 MG/ML 10 ML VIAL ONE; +PROPOFOL 10 MG/ML 20 ML VIAL IV ONE; +ROCURONIUM 10 MG/ML (5 ML VIAL) IV ONE; +ROPIVACAINE 5 MG/ML 30 ML VIAL ONE; +SODIUM CHLORIDE 0.9% (PF) 10 ML VIAL ONE; +SUCCINYLCHOLINE CHLORIDE 200 MG/10 ML VIAL IV ONE; +WATER FOR INJECTION, STERILE 10 ML VIAL IV ONE; +ePHEDrine 50 MG/ML 1 ML VIAL ONE; -fentaNYL (PF) 50 MCG/ML 2 ML AMP IV PRN; +fentaNYL (PF) 50 MCG/ML 2 ML AMP IVP ONE; +fentaNYL (PF) 50 MCG/ML 2 ML AMP ONE
--- NOTE | 2023-01-09 11:26 | P.ANPRN ---
Procedure Note - Anesthesia - Nerve Block Performed Bilateral Transversus Abdominis Time Out Performed: Yes (11:04) Date of Procedure: 01/09/23 Procedure Start Time: : Procedure Stop Time: 11:10 Location of Patient: PreOp Indication: Acute Post-Operative Pain, Requested by Surgeon (DR Black) Sedation Type: Sedate with meaningful contact maintained Preparation: Sterile Prep Position: Supine Catheter: None Needle Types: Pajunk Needle Gauge: 21 Ultrasound used to visualize needle placement: Yes Ultrasound used to observe medication spread: Yes Injectate: 0.5% Ropivacaine (see comment for volume) (15cc +10cc PF Normal saline each side) Blood Aspirated: No Pain Paresthesia on Injection Noted: No Resistance on Injection: Normal Image Stored and Saved: Yes Events: Uneventful and Well Tolerated
--- NOTE | 2023-01-09 12:32 | P.OP ---
Date of Procedure: 01/09/23 Preoperative Diagnosis: Bilateral inguinal hernia Postoperative Diagnosis: Bilateral inguinal hernia Right cord lipoma Procedure(s) Performed: Laparoscopic robotic-assisted repair of bilateral hernia Excision of right cord lipoma Transverse abdominous plane block Anesthesia: PEPPER Surgeon: Casey Black Estimated Blood Loss (ml): 5 Pathology: other (Right cord lipoma) Condition: stable Disposition: PACU Description of Procedure: RThe patient's placed on the operating table in the supine position. The patient received general anesthesia. The patient's abdomen was prepped and draped in usual sterile fashion. The skin was anesthetized 1% local Xylocaine at the incision sites. Using an 11 blade a skin incision was made at the umbilicus. The fascia was grasped with a [place] and then the peritoneal cavity was entered with the Veress needle. Position of the Veress needle was confirmed with a positive drop test. After adequate insufflation a 5 mm trocar was placed into the peritoneal cavity. The Laparoscope was placed the peritoneal cavity. And a robotic 8 mm trocar was placed in the right lateral position and then another 8 mm robotic trochars placed in the left lateral position. The original 5 mm trocar was exchanged for a 12 mm trocar. A four-quadrant transversus abdominis plane block was then performed using 1% local Xylocaine. The patient was placed in reverse Trendelenburg and then the patient was docked to the robot. Next the peritoneum over top of the right inguinal hernia was incised and then using blunt and sharp dissection and electrocautery the hernia sac was dissected free from the floor of the inguinal canal. The cord lipoma was dissected free sent to pathology. The hernia sac was completely reduced into the peritoneal cavity. And then using the Pro contract graphic designer mesh the hernia was repaired. The peritoneum was then sutured with 20V lock suture. Next the peritoneum over top of the left inguinal hernia was incised and then using blunt and sharp dissection and electrocautery the hernia sac was dissected free from the floor of the inguinal canal. The hernia sac was completely reduced into the peritoneal cavity. And then using the Pro contract graphic designer mesh the hernia was repaired. The peritoneum was then sutured with 20V lock suture. The patient was then undocked the robot. The needle was withdrawn from the peritoneal cavity. The umbilical trocar site was closed with 0 Ethibond suture. The skin was closed interrupted 3-0 Monocryl suture. Dermabond dressing was applied. Patient was sent to recovery in stable condition.
[2023-01-09 12:39] VITALS: TEMP 97.4
[2023-01-09 12:52] VITALS: RESP 16
[2023-01-09 14:30] VITALS: BP 109/61; PULSE 68
== END ==
LOC: OR 09:39
PROVIDERS: ATTEND Surgery
DX: K40.20 Bilateral inguinal hernia, without obstruction or gangrene, not specified as recurrent (principal); G89.18 Other acute postprocedural pain; I10 Essential (primary) hypertension; F41.9 Anxiety disorder, unspecified; G47.33 Obstructive sleep apnea (adult) (pediatric); Z90.49 Acquired absence of other specified parts of digestive tract; Z79.899 Other long term (current) drug therapy
CPT/HCPCS: 64488; 86900; 86901; 86850; 49650; C1781 ×2; J2250; J0330; J1100; J2710; J0690; J2405; J3010; J2795; J2704; J1644; J2001

== ENCOUNTER → 2023-02-04 | Outpatient (CLI) | payer BC, MEDICARE ==
[2023-02-04 15:26] VITALS: BP 187/94; PULSE 64; RESP 16; TEMP 98.2; BMI 42.3
--- NOTE | 2023-02-22 09:55 | P.HPBAR ---
Bariatric H&P - History & Physicial H&P Date: 02/04/23 History & Physicial: Visit/CC: Initial Consult Patient initial contact: Initial weight: 127.261 kg Initial weight in pounds: 280.56 Height: 5 ft 8.25 in Initial BMI: 42.3 Last weight: Current weight: 127.261 kg Current weight in pounds: 280.56 Current BMI: 42.3 [place] body weight (based on NIH guidelines): 70.534 kg Excess body weight loss: 0.0% The patient is a 58 year-old M who presents for Bariatric Assessment. This a 58-year-old male who's had lifetime problems obesity. Patient developed severe comorbidities related to morbid obesity. Patient is interested in sleeve gastrectomy. Patient's excellent understanding sleeve gastrectomy is aware the risks of surgery including gastric injury, staple line disruption bleeding and scarring. Past Medical History Past Medical History: Coronary Artery Disease (CAD), Hyperlipidemia, Hypertension, Sleep Apnea/CPAP/BIPAP Additional Past Medical History / Comment(s): SLEEP APNEA WITH BIPAP, RANULFO INGUINAL HERNIA'S, BACK PAIN. THORACIC AORTIC ANEURYSM, INFRARENAL AORTIC ANEURYSM Last Myocardial Infarction Date:: 2004 History of Any Multi-Drug Resistant Organisms: None Reported Past Surgical History: Back Surgery, Cholecystectomy, Heart Catheterization, Hernia Repair, Joint Replacement, Orthopedic Surgery Additional Past Surgical History / Comment(s): Cardiac cath-no PTCA d/t lesion position (treated medically by Dr. Vargas), left total knee replacement, total right hip replacement, back surgery X2 - 15 years ago and January 2016, plate in right femur., Ventral Hernia Repair (11/27/22), heart cath (12/19/22) Past Anesthesia/Blood Transfusion Reactions: Previous Problems w/ Anesthesia, Postoperative Nausea & Vomiting (PONV) Additional Past Anesthesia/Blood Transfusion Reaction / Comm: Never received blood. Past Psychological History: Anxiety Smoking Status: Never smoker Past Alcohol Use History: Occasional Past Drug Use History: None Reported - Past Family History Father Family Medical History: Cancer Additional Family Medical History / Comment(s): in his 50s of unknown causes. Mother Family Medical History: Cancer Additional Family Medical History / Comment(s): of pancreatic cancer in her 50s. Brother(s) Family Medical History: Diabetes Mellitus Sister(s) Family Medical History: Cancer Additional Family Medical History / Comment(s): Breast cancer. Surgical - Exam Vital Signs Temp Pulse Resp BP 98.2 F 64 16 187/94 02/04/23 15:23 02/04/23 15:23 02/04/23 15:23 02/04/23 15:23 - General well developed, well nourished, no distress - Eyes PERRL - ENT normal pinna - Neck no masses - Respiratory normal expansion - Abdomen Abdomen: soft, non tender Bariatric Assessment & Plan Plan: Morbid obesity. Patient be scheduled for EGD. Bariatric Checklist Checklist: Plan: Checklist: EGD: 1. Hiatal hernia: 2. H. Pylori: HgbA1c: Vitamin D: Smoking: Never smoker Primary care physician referral: Dr. Coreas Psychiatry clearance: Cardiology clearance: Sleep study: Diet journal: VTE risk score: VTE risk level: Rehab needs at discharge:
== END ==
LOC: BARWHC3 14:03
PROVIDERS: ATTEND Surgery
DX: E66.01 Morbid (severe) obesity due to excess calories (principal); I25.10 Atherosclerotic heart disease of native coronary artery without angina pectoris; E78.5 Hyperlipidemia, unspecified; I10 Essential (primary) hypertension; Z79.899 Other long term (current) drug therapy; Z68.41 Body mass index [BMI] 40.0-44.9, adult
CPT/HCPCS: 99202

== ENCOUNTER → 2023-03-11 | Outpatient (CLI) | payer BC, MEDICARE ==
[2023-03-11 13:32] VITALS: PULSE 63; TEMP 98.2; BMI 42.0
[2023-03-11 13:40] VITALS: BP 186/106
--- NOTE | 2023-03-19 15:25 | P.HPBAR ---
Bariatric H&P - History & Physicial H&P Date: 03/11/23 History & Physicial: Visit/CC: pre-surg Patient initial contact: Initial weight: 127.261 kg Initial weight in pounds: 280.56 Height: 5 ft 8.25 in Initial BMI: 42.3 Last weight: Current weight: 126.552 kg Current weight in pounds: 279.00 Current BMI: 42.0 [place] body weight (based on NIH guidelines): 70.534 kg Excess body weight loss: 1.2% The patient is a 58 year-old M who presents for Bariatric Assessment. patient presents today for presurgical consultation. Patient is morbid obese. His BMI is 42. He has had lifetime problems obesity. Patient is interested in sleeve gastrectomy. Past Medical History Past Medical History: Coronary Artery Disease (CAD), Hyperlipidemia, Hypertension, Sleep Apnea/CPAP/BIPAP Additional Past Medical History / Comment(s): SLEEP APNEA WITH BIPAP, RANULFO INGUINAL HERNIA'S, BACK PAIN. THORACIC AORTIC ANEURYSM, INFRARENAL AORTIC ANEURYSM Last Myocardial Infarction Date:: 2004 History of Any Multi-Drug Resistant Organisms: None Reported Past Surgical History: Back Surgery, Cholecystectomy, Heart Catheterization, Hernia Repair, Joint Replacement, Orthopedic Surgery Additional Past Surgical History / Comment(s): Cardiac cath-no PTCA d/t lesion position (treated medically by Dr. Vargas), left total knee replacement, total right hip replacement, back surgery X2 - 15 years ago and January 2016, plate in right femur., Ventral Hernia Repair (11/27/22), heart cath (12/19/22) Past Anesthesia/Blood Transfusion Reactions: Previous Problems w/ Anesthesia, Postoperative Nausea & Vomiting (PONV) Additional Past Anesthesia/Blood Transfusion Reaction / Comm: Never received blood. Past Psychological History: Anxiety Smoking Status: Never smoker Past Alcohol Use History: Occasional Past Drug Use History: None Reported - Past Family History Father Family Medical History: Cancer Additional Family Medical History / Comment(s): in his 50s of unknown causes. Mother Family Medical History: Cancer Additional Family Medical History / Comment(s): of pancreatic cancer in her 50s. Brother(s) Family Medical History: Diabetes Mellitus Sister(s) Family Medical History: Cancer Additional Family Medical History / Comment(s): Breast cancer. Surgical - Exam Vital Signs Temp Pulse BP 98.2 F 63 186/106 03/11/23 13:27 03/11/23 13:27 03/11/23 13:27 - General well developed, well nourished, no distress - Eyes PERRL - ENT normal pinna, normal nares Bariatric Assessment & Plan Plan: Morbid BC. Patient will follow-up in approxi-1 month. He will obtain his psychologic testing and see his PCP before his next visit. Bariatric Checklist Checklist: Plan: Checklist: EGD: 1. Hiatal hernia: 2. H. Pylori: HgbA1c: Vitamin D: Smoking: Never smoker Primary care physician referral: Dr. Neal Psychiatry clearance: Cardiology clearance: Sleep study: Diet journal: VTE risk score: VTE risk level: Rehab needs at discharge:
== END ==
LOC: BARWHC3 13:22
PROVIDERS: ATTEND Surgery
DX: E66.01 Morbid (severe) obesity due to excess calories (principal); I25.10 Atherosclerotic heart disease of native coronary artery without angina pectoris; E78.5 Hyperlipidemia, unspecified; I10 Essential (primary) hypertension; Z68.41 Body mass index [BMI] 40.0-44.9, adult
CPT/HCPCS: 99211

== ENCOUNTER → 2023-03-25 | Outpatient (CLI) | payer BC, MEDICARE ==
[2023-03-25 11:32] VITALS: BMI 42.7
== END ==
LOC: BARWHC3 08:42
PROVIDERS: ATTEND Surgery
DX: E66.01 Morbid (severe) obesity due to excess calories (principal); Z68.41 Body mass index [BMI] 40.0-44.9, adult; Z71.3 Dietary counseling and surveillance
CPT/HCPCS: 97804

== ENCOUNTER 2023-05-03 07:00 | Inpatient (IN) | payer BC, MEDICARE ==
[2023-05-07] MEDS ORDERED: ceFAZolin 3 GM in SODIUM CHLORIDE 0.9% 100 ML IVPB PRN (05:00)
[2023-05-07] MEDS ORDERED: ENOXAPARIN 40 MG/0.4 ML SYRINGE SQ PRN (05:00)
[2023-05-07] MEDS ORDERED: DEXAMETHASONE SOD PHOSPHATE 4 MG/ML 1 ML VIAL IV ONE (06:15)
[2023-05-07] MEDS ORDERED: ONDANSETRON 4 MG/2 ML VIAL IVP ONE (06:15)
[2023-05-07] MEDS ORDERED: LIDOCAINE 1% (10MG/ML) FOR IV START INTRADERMA PRN (07:00)
[2023-05-07] MEDS ORDERED: MIDAZOLAM 2 MG/2 ML VIAL IV PRN (07:00)
[2023-05-07] MEDS: LACTATED RINGERS 1,000 ML IV SCH (10:39)
[2023-05-07] MEDS ORDERED: DEXAMETHASONE SOD PHOSPHATE 4 MG/ML 1 ML VIAL IVP ONE (10:45)
[2023-05-07] MEDS ORDERED: SCOPOLAMINE 1 MG/72 HR PATCH TRANSDERM ONE (11:25)
--- NOTE | 2023-05-07 11:42 | P.GSHP ---
History of Present Illness H&P Date: 05/07/23 Chief Complaint: Morbid obesity, BMI 43 This is a 58-year-old male who presents today for laparoscopic sleeve gastrectomy. Patient has had lifetime problems obesity. She developed severe coronary disease related to morbid obesity. Patient's of the risks and benefits of gastric sleeve surgery. He is well-dressed gastric staple line bleeding, scarring obstruction. And perforation. Past Medical History Past Medical History: Coronary Artery Disease (CAD), Hyperlipidemia, Hypertension, Sleep Apnea/CPAP/BIPAP Additional Past Medical History / Comment(s): SLEEP APNEA WITH BIPAP, RANULFO INGUINAL HERNIA'S, BACK PAIN. THORACIC AORTIC ANEURYSM-being monitored by Dr Luis, INFRARENAL AORTIC ANEURYSM,fx rt femur 2019-aspirated in ems on way to [facility]-on ventilator for 3 weeks Last Myocardial Infarction Date:: 2004 History of Any Multi-Drug Resistant Organisms: None Reported Past Surgical History: Back Surgery, Cholecystectomy, Heart Catheterization, Hernia Repair, Joint Replacement, Orthopedic Surgery Additional Past Surgical History / Comment(s): Cardiac cath-no PTCA d/t lesion position (treated medically by Dr. Vargas), left total knee replacement, total right hip replacement, back surgery X2 - 15 years ago and January 2016, plate in right femur., Ventral Hernia Repair (11/27/22), heart cath (12/19/22) Past Anesthesia/Blood Transfusion Reactions: Previous Problems w/ Anesthesia, Postoperative Nausea & Vomiting (PONV) Additional Past Anesthesia/Blood Transfusion Reaction / Comment(s): Never received blood. Smoking Status: Never smoker - Past Family History Father Family Medical History: Cancer Additional Family Medical History / Comment(s): in his 50s of unknown causes. Mother Family Medical History: Cancer Additional Family Medical History / Comment(s): of pancreatic cancer in her 50s. Brother(s) Family Medical History: Diabetes Mellitus Sister(s) Family Medical History: Cancer Additional Family Medical History / Comment(s): Breast cancer. Medications and Allergies Home Medications Medication Instructions Recorded Confirmed Type traMADol HCL [Ultram] 50 mg PO BID PRN 04/01/19 05/02/23 History Metoprolol Tartrate [Lopressor] 25 mg PO BID #60 tab 09/14/22 05/02/23 Rx HYDROcodone/APAP 10-325MG [[place] 1 tab PO TID PRN 11/21/22 05/02/23 History 10-325] Losartan Potassium [Cozaar] 100 mg PO HS 11/21/22 05/02/23 History Ibuprofen [Motrin] 600 mg PO Q6HR PRN #40 tab 01/09/23 05/07/23 Rx Allergies Allergy/AdvReac Type Severity Reaction Status Date / Time morphine AdvReac severe Verified 05/07/23 10:08 nausea and vomiting Surgical - Exam Vital Signs Temp Pulse Resp BP Pulse Ox 98.7 F 51 L 16 173/85 91 L 05/07/23 11:02 05/07/23 11:02 05/07/23 11:02 05/07/23 11:02 05/07/23 11:02 - General well developed, well nourished, no distress - Eyes PERRL - ENT normal pinna - Neck no masses - Respiratory normal expansion - Cardiovascular Rhythm: regular - Abdomen Abdomen: soft, non tender Assessment and Plan Plan: Morbid obesity. We'll perform laparoscopic sleeve gastrectomy.
[2023-05-07] MEDS ORDERED: BUPIVACAINE (PF) 0.5% 30 ML VIAL SQ ONE (12:25)
[2023-05-07] MEDS ORDERED: HYDROmorphone 0.5 MG/0.5 ML SYRINGE IVP PRN (13:16)
[2023-05-07] MEDS ORDERED: ACETAMINOPHEN ORAL SUSP 160 MG/5 ML CUP PO PRN (13:16)
[2023-05-07] MEDS ORDERED: HYDROmorphone 1 MG/ML 1 ML SYRINGE IVP PRN (13:16)
[2023-05-07] MEDS ORDERED: HYDROcodone/APAP 15 ML SOLUTION PO PRN ×2 (13:16)
[2023-05-07] MEDS ORDERED: NALOXONE 0.4 MG/ML 1 ML VIAL IV PRN (13:16)
--- NOTE | 2023-05-07 13:20 | P.OP ---
Date of Procedure: 05/07/23 Preoperative Diagnosis: Morbid obesity, BMI 43 Postoperative Diagnosis: Morbid obesity, BMI 43 Procedure(s) Performed: Laparoscopic sleeve gastrectomy Anesthesia: PEPPER Surgeon: Casey Black Estimated Blood Loss (ml): 25 Pathology: other (Stomach) Condition: stable Disposition: PACU Description of Procedure: The patient was placed on the operating room table in the supine position. She received general anesthesia and then was placed in dorsal lithotomy position. Her abdomen was prepped and draped in sterile fashion. The skin incision sites were anesthetized 1% local Xylocaine. And then the skin was incised with an 11 blade in the left lateral position. Using a blade less trocar under direct visualization the peritoneal cavity was entered. The abdomen was insufflated and then a 5 mm laparoscope was placed into the peritoneal cavity. A 5 mm trocar was placed in the right epigastric, and right lateral position. A 15 mm trocar was placed in the supra-umbilical position and another 5 mm trocar was placed in the left lateral position. The left lateral lobe of the liver was retracted. The stomach was visualized. The greater curvature of the stomach was then dissected using the Harmonic scissors. The dissection occurred approximately 5 cm from the pylorus to the level of the left letitia. There was no hiatal hernia seen. At this point a 40-[place] bougie dilator was placed the oropharynx and passed into the esophagus and into the stomach by the CORRESPONDENCE TRANSCRIBER. The sleeve gastrectomy was performed by using the powered echelon stapler with a seam guard buttress material. Sequential firings of the stapler were performed. The gastric remnant was then brought out through the 15 mm trocar site. The dilator was withdrawn. And a orogastric tube was replaced into the stomach. The stomach was insufflated with 200 mL of methylene blue normal saline. There was no evidence of extravasation. The abdomen was irrigated there is no bleeding seen. The Xander-Deandre device was used to close the 15 mm trocar with 0 Vicryl. Skin was closed with interrupted 3-0 Monocryl sutures once the trochars withdrawn. Dermabond dressing was applied. Patient was sent to recovery in stable condition.
[2023-05-07] MEDS ORDERED: droPERidol 5 MG/2 ML VIAL IVP ONE (13:36)
[2023-05-07] MEDS: HYDROmorphone 0.5 MG/0.5 ML SYRINGE IVP PRN ×2 (13:47→14:30)
[2023-05-07] MEDS ORDERED: SODIUM CHLORIDE 0.9% 1,000 ML IV ONE ×2 (13:50)
[2023-05-07] MEDS ORDERED: ACETAMINOPHEN IV (For NPO) 1,000 MG in EMPTY BAG 1 BAG IVPB ONE (16:00)
[2023-05-07] MEDS: 0.9% NACL WITH KCL 20 MEQ/L 1,000 ML IV SCH ×2 (16:41→22:16)
[2023-05-07] MEDS: KETOROLAC 15 MG/ML 1 ML VIAL IVP SCH (16:46)
[2023-05-07] MEDS: ALBUTEROL NEBULIZED 2.5 MG/3 ML INHALATION SCH ×2 (17:00→20:46)
[2023-05-07] MEDS ORDERED: ONDANSETRON 4 MG/2 ML VIAL IVP PRN (17:54)
[2023-05-08] MEDS: KETOROLAC 15 MG/ML 1 ML VIAL IVP SCH ×3 (00:07→13:47)
[2023-05-08] MEDS ORDERED: ENOXAPARIN 40 MG/0.4 ML SYRINGE SQ SCH (04:00)
[2023-05-08] MEDS: 0.9% NACL WITH KCL 20 MEQ/L 1,000 ML IV SCH ×2 (05:23→13:47)
[2023-05-08] MEDS ORDERED: ACETAMINOPHEN ORAL SUSP (PEDS) 3,840 MG/120 ML BOTTLE PO PRN (05:47)
[2023-05-08] MEDS: LACTATED RINGERS 1,000 ML IV SCH (06:34)
[2023-05-08] MEDS ORDERED: PANTOPRAZOLE 40 MG/10 ML VIAL IV SCH (09:00)
[2023-05-08 09:21] LABS: Basophils % (A) 0 %; Eosinophils % (A) 0 %; HCT 46.6 % (39.0-53.0); HGB 14.9 gm/dL (13.0-17.5); Lymphocytes % (A) 8 %; MCH 32.5 pg (25.0-35.0); MCV 101.6 fL (80.0-100.0); Macrocytosis Slight; Mean Platelet Volume 8.4; Monocytes # (A) 0.5 k/uL (0-1.0); Monocytes % (A) 4 %; Neutrophils # (A) 11.7 k/uL (1.3-7.7); Neutrophils % (A) 87 %; Platelet Count 243 k/uL (150-450); RBC 4.59 m/uL (4.30-5.90); RDW 14.8 % (11.5-15.5); WBC 13.4 k/uL (3.8-10.6)
[2023-05-08 09:46] LABS: African American GFR (CKD) >90 (>60 ml/min/1.73 sqM); Anion Gap 7 mmol/L; Blood Urea Nitrogen 19 mg/dL (9-20); Calcium 8.8 mg/dL (8.4-10.2); Carbon Dioxide 29 mmol/L (22-30); Chloride 103 mmol/L (98-107); Magnesium 1.7 mg/dL (1.6-2.3); Non-African American GFR(CKD) >90 (>60 ml/min/1.73 sqM); Potassium 5.7 mmol/L (3.5-5.1); Sodium 139 mmol/L (137-145)
[2023-05-08] MEDS: ALBUTEROL NEBULIZED 2.5 MG/3 ML INHALATION SCH ×2 (10:00→12:10)
[2023-05-08 11:01] VITALS: BMI 42.7
[2023-05-08] MEDS ORDERED: METOPROLOL TARTRATE 25 MG TAB PO SCH (12:00)
[2023-05-08 13:14] LABS: Magnesium 1.8 mg/dL (1.6-2.3); Potassium 4.8 mmol/L (3.5-5.1)
[2023-05-08 15:30] VITALS: BP 171/108; PULSE 87; RESP 16; TEMP 98.3
--- NOTE | 2023-05-08 16:14 | P.DS ---
Providers Date of admission: 05/07/23 08:44 Expected date of discharge: 05/08/23 Attending physician: Casey Black Consults: 05/07/23 13:16 Consult Physician Routine Consulting Provider: Taurus Neal Consult Reason/Comments: Medical management Do you want consulting provider notified?: Yes Primary care physician: Taurus Neal Hospital Course: Discharge diagnosis 1. Morbid obesity Hospital course This is a 58-year-old male with history of morbid obesity. He is status post laparoscopic sleeve gastrectomy. His pain is controlled. He is tolerating diet. He has been up and ambulating. He is having flatus. He is stable for discharge. He is afebrile Please refer to chart for any further details. Physician Buckle And Button Maker note has been reviewed by physician. Signing provider agrees with the documented findings, assessment, and plan of care. Patient Condition at Discharge: Stable Plan - Discharge Summary Discharge Rx Participant: No New Discharge Prescriptions: New Omeprazole [PriLOSEC] 40 mg PO DAILY #30 cap Ondansetron Odt [Zofran Odt] 4 mg PO Q8HR PRN #9 tab PRN Reason: Nausea bisacodyL [Dulcolax] 5 mg PO DAILY PRN #10 tab PRN Reason: Constipation Simethicone 40 mg/0.6 ml Drops [Mylicon Drops] 40 mg PO PCHS PRN #30 ml PRN Reason: Gas Continue traMADol HCL [Ultram] 50 mg PO BID PRN PRN Reason: Pain Losartan Potassium [Cozaar] 100 mg PO HS HYDROcodone/APAP 10-325MG [[place] 10-325] 1 tab PO TID PRN PRN Reason: Pain Metoprolol Tartrate [Lopressor] 25 mg PO BID #60 tab Discontinued Ibuprofen [Motrin] 600 mg PO Q6HR PRN #40 tab PRN Reason: Pain Discharge Medication List traMADol HCL [Ultram] 50 mg PO BID PRN 04/01/19 [History] Metoprolol Tartrate [Lopressor] 25 mg PO BID #60 tab 09/14/22 [Rx] HYDROcodone/APAP 10-325MG [[place] 10-325] 1 tab PO TID PRN 11/21/22 [History] Losartan Potassium [Cozaar] 100 mg PO HS 11/21/22 [History] Omeprazole [PriLOSEC] 40 mg PO DAILY #30 cap 05/08/23 [Rx] Ondansetron Odt [Zofran Odt] 4 mg PO Q8HR PRN #9 tab 05/08/23 [Rx] Simethicone 40 mg/0.6 ml Drops [Mylicon Drops] 40 mg PO PCHS PRN #30 ml 05/08/23 [Rx] bisacodyL [Dulcolax] 5 mg PO DAILY PRN #10 tab 05/08/23 [Rx] [place] [facility](s[place] [facility] [place] (please call the office to schedule a follow up appointment.) Patient Instructions/Handouts: Nutrition after Bariatric Surgery (DC), Laparoscopic Sleeve Gastrectomy (DC) Activity/Diet/Wound Care/Special Instructions: No driving while taking [place] No lifting over 10 pounds Shower daily. No soaking or tub baths for 2 weeks Very light activity until you are reevaluated at your follow up appointment with your surgeon Discharge Disposition: HOME SELF-CARE
[2023-05-08] MEDS ORDERED: LOSARTAN 50 MG TAB PO SCH (21:00)
--- NOTE | 2023-05-10 03:13 | PN ---
PROGRESS NOTE DATE OF SERVICE: 05/08/2023 CHIEF COMPLAINT: Status post bariatric procedure. HISTORY OF PRESENT ILLNESS: This gentleman has been doing well. He has had no chills, fever, and nausea, abdominal pain, etc. He is urinating and passing gas. IMPRESSION: Morbid obesity. PLAN: He will probably go home today. MMODL / IJN: [id number] /
--- NOTE | 2023-05-10 03:13 | CONS ---
CONSULTATION CHIEF COMPLAINT: Obesity. HISTORY OF PRESENT ILLNESS: This is first admission under my care for this 58-year-old obese male who was brought in for obesity. He is to receive gastric stapling. REVIEW OF SYSTEMS: He has had no headaches, change in vision or hearing, chest pain, shortness of breath, abdominal pain, vomiting, diarrhea, melena, hematochezia, renal failure, urinary complaints, incontinence, dysuria etc. PAST MEDICAL HISTORY, FAMILY HISTORY AND PERSONAL AND SOCIAL HISTORIES: Unremarkable and can be found in his admitting summary. ALLERGIES: He is not allergic to any medication. MEDICATIONS: He is on, 1. Metoprolol. 2. Depakote. 3. Acamprosate. 4. Tramadol. 5. Vicodin. 6. Thiamine. 7. Folic acid. 8. Losartan. 9. Aspirin. SOCIAL HISTORY: He does not smoke. PHYSICAL EXAMINATION: VITAL SIGNS: Blood pressure 144/80 with a pulse of 50 and regular, respirations of 18. He is afebrile. GENERAL: Appeared to be overweight with a BMI of 44.3. HEENT: Head, ears, eyes, nose, mouth and throat were normal. NECK: Veins not distended. Thyroid is not enlarged. CHEST: Clear. CARDIAC: Normal. ABDOMEN: Soft and nontender. EXTREMITIES: Normal. NEUROLOGIC: He is intact. IMPRESSION: 1. Morbid obesity. 2. History of hypertension. RECOMMENDATIONS: None. MMODL / IJN: [id number] /
== END 2023-05-08 16:34 | disposition home or self-care (01) | DRG 621 ==
LOC: 2ORMAIN 05-07 08:44 → 4SSUR 05-07 15:05
PROVIDERS: ADMIT Surgery; ATTEND Surgery
PROC: 0DB64Z3 Excision of Stomach, Percutaneous Endoscopic Approach, Vertical (ICD-10-PCS; principal; 2023-05-07 10:20)
DX: E66.01 Morbid (severe) obesity due to excess calories (principal); E78.5 Hyperlipidemia, unspecified; I10 Essential (primary) hypertension; I25.10 Atherosclerotic heart disease of native coronary artery without angina pectoris; Z87.19 Personal history of other diseases of the digestive system; G47.30 Sleep apnea, unspecified; Z79.899 Other long term (current) drug therapy; Z68.41 Body mass index [BMI] 40.0-44.9, adult; I25.2 Old myocardial infarction; Z90.49 Acquired absence of other specified parts of digestive tract
CPT/HCPCS: 80051; 82310; 82565; 83735; 84100; 84132; 84520; 85025; 88307; 94640; 94660

== ENCOUNTER → 2023-05-10 | Outpatient (CLI) | payer BC, MEDICARE ==
[2023-05-10 11:37] VITALS: BP 144/96; PULSE 73; RESP 13; TEMP 98.2; BMI 42.6
== END ==
LOC: BARWHC3 10:45
PROVIDERS: ATTEND Surgery
DX: E66.01 Morbid (severe) obesity due to excess calories (principal); Z68.41 Body mass index [BMI] 40.0-44.9, adult; Z98.84 Bariatric surgery status
CPT/HCPCS: 99211

== ENCOUNTER → 2023-06-03 | Outpatient (CLI) | payer BC, MEDICARE ==
[2023-06-03 10:34] VITALS: BP 129/83; PULSE 49; TEMP 98.1; BMI 38.7
--- NOTE | 2023-06-03 11:57 | P.HPBAR ---
Bariatric H&P - History & Physicial H&P Date: 06/03/23 History & Physicial: Visit/CC: 1 month gastric sleeve F/U Patient initial contact: Initial weight: 127.261 kg Initial weight in pounds: 280.56 Height: 5 ft 8.25 in Initial BMI: 42.3 Last weight: Current weight: 116.573 kg Current weight in pounds: 257.00 Current BMI: 38.7 [place] body weight (based on NIH guidelines): 70.534 kg Excess body weight loss: 18.8% The patient is a 58 year-old M who presents for Bariatric Assessment. Patient presents today for [place] follow-up. He has lost 14 pounds since last visit. He's had some minimal GERD. He is status post sleeve gastrectomy. Past Medical History Past Medical History: Coronary Artery Disease (CAD), Hyperlipidemia, Hypertension, Sleep Apnea/CPAP/BIPAP Additional Past Medical History / Comment(s): SLEEP APNEA WITH BIPAP, RANULFO INGUINAL HERNIA'S, BACK PAIN. THORACIC AORTIC ANEURYSM, INFRARENAL AORTIC ANEURYSM Last Myocardial Infarction Date:: 2004 History of Any Multi-Drug Resistant Organisms: None Reported Past Surgical History: Back Surgery, Bariatric Surgery, Cholecystectomy, Heart Catheterization, Hernia Repair, Joint Replacement, Orthopedic Surgery Additional Past Surgical History / Comment(s): Cardiac cath-no PTCA d/t lesion position (treated medically by Dr. Vargas), left total knee replacement, total right hip replacement, back surgery X2 - 15 years ago and January 2016, plate in right femur., Ventral Hernia Repair (11/27/22), heart cath (12/19/22). Gastric sleeve 05/07/23 Past Anesthesia/Blood Transfusion Reactions: Previous Problems w/ Anesthesia, Postoperative Nausea & Vomiting (PONV) Additional Past Anesthesia/Blood Transfusion Reaction / Comm: Never received blood. Past Psychological History: Anxiety Smoking Status: Never smoker Past Alcohol Use History: Occasional Past Drug Use History: None Reported - Past Family History Father Family Medical History: Cancer Additional Family Medical History / Comment(s): in his 50s of unknown causes. Mother Family Medical History: Cancer Additional Family Medical History / Comment(s): of pancreatic cancer in her 50s. Brother(s) Family Medical History: Diabetes Mellitus Sister(s) Family Medical History: Cancer Additional Family Medical History / Comment(s): Breast cancer. Surgical - Exam Vital Signs Temp Pulse BP 98.1 F 49 L 129/83 06/03/23 10:27 06/03/23 10:27 06/03/23 10:27 - General well developed, well nourished, no distress - Eyes PERRL - ENT normal pinna - Neck no masses - Respiratory normal expansion - Cardiovascular Rhythm: regular - Abdomen Abdomen: soft, non tender Bariatric Assessment & Plan Plan: Patient's GERD is minimal old observed. He'll follow-up in 4 weeks. Bariatric Checklist Checklist: Plan: Checklist: EGD: 1. Hiatal hernia: 2. H. Pylori: HgbA1c: Vitamin D: Smoking: Never smoker Primary care physician referral: Dr. Neal Psychiatry clearance: Cardiology clearance: Sleep study: Diet journal: VTE risk score: VTE risk level: Rehab needs at discharge:
== END ==
LOC: BARWHC3 10:15
PROVIDERS: ATTEND Surgery
DX: K21.9 Gastro-esophageal reflux disease without esophagitis (principal); E66.01 Morbid (severe) obesity due to excess calories; I25.10 Atherosclerotic heart disease of native coronary artery without angina pectoris; E78.5 Hyperlipidemia, unspecified; I10 Essential (primary) hypertension; G47.30 Sleep apnea, unspecified; F41.9 Anxiety disorder, unspecified; Z98.84 Bariatric surgery status; Z71.3 Dietary counseling and surveillance; Z86.79 Personal history of other diseases of the circulatory system; Z88.5 Allergy status to narcotic agent; Z68.38 Body mass index [BMI] 38.0-38.9, adult; Z79.899 Other long term (current) drug therapy
CPT/HCPCS: 97803; 99211

== ENCOUNTER → 2023-06-21 | Outpatient (CLI) | payer BC, MEDICARE ==
[2023-06-21 16:20] LABS: Basophils # (A) 0.04 X 10*3/uL (0.00-0.10); Basophils % (A) 0.7 %; Eosinophils # (A) 0.29 X 10*3/uL (0.04-0.35); HCT 45.2 % (39.6-50.0); HGB 14.7 g/dL (13.0-17.0); Lymphocytes # (A) 1.19 X 10*3/uL (0.90-5.00); Lymphocytes % (A) 20.3 %; MCH 30.9 pg (27.0-32.0); MCHC 32.5 g/dL (32.0-37.0); Mean Platelet Volume 11.3 FL (9.5-12.2); Monocytes # (A) 0.36 X 10*3/uL (0.20-1.00); Monocytes % (A) 6.2 %; NRBC Per 100 WBC 0 X 10*3/uL (0.00-0.01); Neutrophils # (A) 3.96 X 10*3/uL (1.80-7.70); Neutrophils % (A) 67.6 %; Platelet Count 220 X 10*3/uL (140-440); RBC 4.76 X 10*6/uL (4.40-5.60); RDW 12.6 % (11.5-14.5); WBC 5.85 X 10*3/uL (4.50-10.00)
[2023-06-21 16:32] LABS: Reticulocyte % 0.74 % (0.10-1.80)
[2023-06-21 16:36] LABS: % Iron Saturation 39.31 (15.00-50.00); Iron 114 UG/DL (65-175); Magnesium 1.9 mg/dL (1.5-2.4); Total Iron Binding Capacity 290 UG/DL (228-460)
[2023-06-21 16:49] LABS: ALT 35 U/L (10-49); AST 37 U/L (14-35); Albumin 3.9 g/dL (3.8-4.9); Albumin/Globulin Ratio 1.56 Ratio (1.60-3.17); Alkaline Phosphatase 43 U/L (41-126); Blood Urea Nitrogen 8.2 mg/dL (9.0-27.0); Calcium 9.6 mg/dL (8.7-10.3); Carbon Dioxide 28.8 mmol/L (21.6-31.8); Chloride 103 mmol/L (96-109); Globulin 2.5 g/dL (1.6-3.3); Glucose 93 mg/dL (70-110); Potassium 4.1 mmol/L (3.5-5.5); Sodium 142 mmol/L (135-145); Total Bilirubin 0.7 mg/dL (0.3-1.2); Total Protein 6.4 g/dL (6.2-8.2)
[2023-06-24 11:55] LABS: Zinc, Serum 58 ug/dL (60-130)
== END | disposition home or self-care (01) ==
LOC: LABWHC1 09:52
PROVIDERS: ATTEND Surgery
DX: E66.01 Morbid (severe) obesity due to excess calories (principal); D50.8 Other iron deficiency anemias; Z98.84 Bariatric surgery status; E56.9 Vitamin deficiency, unspecified; E44.0 Moderate protein-calorie malnutrition; E55.9 Vitamin D deficiency, unspecified; T56.894A Toxic effect of other metals, undetermined, initial encounter; R53.83 Other fatigue
CPT/HCPCS: 36415; 80053; 82306; 82607; 82728; 82746; 83540; 83550; 83735; 84207; 84255; 84403; 84425; 84443; 84466; 84590; 84591; 84630; 85025; 85045

== ENCOUNTER → 2023-07-08 | Outpatient (CLI) | payer BC, MEDICARE ==
[2023-07-08 11:28] VITALS: BP 145/89; PULSE 48; TEMP 98; BMI 36.9
--- NOTE | 2023-07-08 12:24 | P.HPBAR ---
Bariatric H&P - History & Physicial H&P Date: 07/08/23 History & Physicial: Visit/CC: gastric sleeve F/U Patient initial contact: Initial weight: 127.261 kg Initial weight in pounds: 280.56 Height: 5 ft 8.25 in Initial BMI: 42.3 Last weight: Current weight: 111.13 kg Current weight in pounds: 245.00 Current BMI: 36.9 [place] body weight (based on NIH guidelines): 70.534 kg Excess body weight loss: 28.4% The patient is a 58 year-old M who presents for Bariatric Assessment. Patient i s doing well. He has minimal complaints of GERD. He's lost 12 pounds since last visit. Past Medical History Past Medical History: Coronary Artery Disease (CAD), Hyperlipidemia, Hypertension, Sleep Apnea/CPAP/BIPAP Additional Past Medical History / Comment(s): SLEEP APNEA WITH BIPAP, RANULFO INGUINAL HERNIA'S, BACK PAIN. THORACIC AORTIC ANEURYSM, INFRARENAL AORTIC ANEURYSM Last Myocardial Infarction Date:: 2004 History of Any Multi-Drug Resistant Organisms: None Reported Past Surgical History: Back Surgery, Bariatric Surgery, Cholecystectomy, Heart Catheterization, Hernia Repair, Joint Replacement, Orthopedic Surgery Additional Past Surgical History / Comment(s): Cardiac cath-no PTCA d/t lesion position (treated medically by Dr. Vargas), left total knee replacement, total right hip replacement, back surgery X2 - 15 years ago and January 2016, plate in right femur., Ventral Hernia Repair (11/27/22), heart cath (12/19/22). Gastric sleeve 05/07/23 Past Anesthesia/Blood Transfusion Reactions: Previous Problems w/ Anesthesia, Postoperative Nausea & Vomiting (PONV) Additional Past Anesthesia/Blood Transfusion Reaction / Comm: Never received blood. Past Psychological History: Anxiety Smoking Status: Never smoker Past Alcohol Use History: Occasional Past Drug Use History: None Reported - Past Family History Father Family Medical History: Cancer Additional Family Medical History / Comment(s): in his 50s of unknown causes. Mother Family Medical History: Cancer Additional Family Medical History / Comment(s): of pancreatic cancer in her 50s. Brother(s) Family Medical History: Diabetes Mellitus Sister(s) Family Medical History: Cancer Additional Family Medical History / Comment(s): Breast cancer. Surgical - Exam Vital Signs Temp Pulse BP 98 F 48 L 145/89 07/08/23 09:10 07/08/23 09:10 07/08/23 09:10 - General well developed, well nourished, no distress - Eyes PERRL - ENT normal nares - Abdomen Abdomen: soft, non tender Bariatric Assessment & Plan Plan: Status post sleeve gastrectomy. Patient's GERD is minimal will be observed. He'll follow-up in 4 weeks. Bariatric Checklist Checklist: Plan: Checklist: EGD: 1. Hiatal hernia: 2. H. Pylori: HgbA1c: Vitamin D: Smoking: Never smoker Primary care physician referral: Dr. Neal Psychiatry clearance: Cardiology clearance: Sleep study: Diet journal: VTE risk score: VTE risk level: Rehab needs at discharge:
== END ==
LOC: BARWHC3 09:04
PROVIDERS: ATTEND Surgery
DX: K21.9 Gastro-esophageal reflux disease without esophagitis (principal); Z90.3 Acquired absence of stomach [part of]; Z98.84 Bariatric surgery status; Z90.49 Acquired absence of other specified parts of digestive tract; Z95.9 Presence of cardiac and vascular implant and graft, unspecified; Z96.60 Presence of unspecified orthopedic joint implant; F41.9 Anxiety disorder, unspecified; Z98.890 Other specified postprocedural states; Z91.048 Other nonmedicinal substance allergy status
CPT/HCPCS: 99211

== ENCOUNTER → 2023-08-12 | Outpatient (CLI) | payer BC, MEDICARE ==
[2023-08-12 10:02] VITALS: BP 122/84; PULSE 53; TEMP 98.4
[2023-08-12 10:25] VITALS: BMI 36.1
== END ==
LOC: BARWHC3 09:30
PROVIDERS: ATTEND Surgery
DX: E66.01 Morbid (severe) obesity due to excess calories (principal); Z71.3 Dietary counseling and surveillance; Z68.36 Body mass index [BMI] 36.0-36.9, adult; Z88.5 Allergy status to narcotic agent
CPT/HCPCS: 97803; 99211

== ENCOUNTER 2023-12-07 05:29 | Inpatient (IN) | payer BC, MEDICARE ==
[2023-12-07] MEDS: SODIUM CHLORIDE 0.9% 1,000 ML IV ONE (05:52)
[2023-12-07] MEDS: DILTIAZEM DRIP BOLUS FROM BAG 1 MG SOLN IV ONE (05:58)
[2023-12-07] MEDS: DILTIAZEM 125 MG in SODIUM CHLORIDE 0.9% 100 ML IV SCH (05:58)
[2023-12-07 06:01] LABS: Basophils # (A) 0.1 k/uL (0-0.2); Basophils % (A) 1 %; Eosinophils # (A) 0.3 k/uL (0-0.7); Eosinophils % (A) 3 %; HCT 49.6 % (39.0-53.0); Lymphocytes # (A) 3.3 k/uL (1.0-4.8); Lymphocytes % (A) 31 %; MCH 33.3 pg (25.0-35.0); MCHC 34.4 g/dL (31.0-37.0); Mean Platelet Volume 7.8; Monocytes # (A) 0.5 k/uL (0-1.0); Monocytes % (A) 5 %; Neutrophils % (A) 57 %; Platelet Count 267 k/uL (150-450); RBC 5.11 m/uL (4.30-5.90); RDW 13.7 % (11.5-15.5); WBC 10.5 k/uL (3.8-10.6)
--- NOTE | 2023-12-07 06:04 | ED ---
General Adult HPI - General Chief complaint: Arrhythmia/Palpitations Stated complaint: Heart palpitations Time Seen by Provider: 12/07/23 05:40 Source: patient, RN notes reviewed, old records reviewed Mode of arrival: wheelchair Limitations: no limitations - History of Present Illness Initial comments: 58-year-old male history of hypertension and nonobstructive coronary artery disease presenting with palpitations. Patient denies central chest pain. He states he feels a racing sensation. Denies known history of atrial fibrillation. He states he has had intermittent symptoms for several months. Patient states that he drinks alcohol regularly. - Related Data Home Medications Medication Instructions Recorded Confirmed HYDROcodone/APAP 10-325MG [[place] 1 tab PO TID PRN 11/21/22 08/12/23 10-325] Losartan Potassium [Cozaar] 100 mg PO HS 11/21/22 08/12/23 traMADol HCL 50 mg PO Q6H PRN 06/03/23 08/12/23 Metoprolol Tartrate [Lopressor] 25 mg PO DAILY 07/08/23 08/12/23 Multivitamins, Thera [Multivitamin 1 tab PO DAILY 07/08/23 08/12/23 (formulary)] Previous Rx's Medication Instructions Recorded Omeprazole [PriLOSEC] 40 mg PO DAILY #30 cap 05/08/23 Allergies Allergy/AdvReac Type Severity Reaction Status Date / Time morphine AdvReac severe Verified 12/07/23 05:43 nausea and vomiting Review of Systems ROS Statement: Those systems with pertinent positive or pertinent negative responses have been documented in the HPI. ROS Other: All systems not noted in ROS Statement are negative. Past Medical History Past Medical History: Coronary Artery Disease (CAD), Hyperlipidemia, Hypertension, Sleep Apnea/CPAP/BIPAP Additional Past Medical History / Comment(s): SLEEP APNEA WITH BIPAP, RANULFO INGUINAL HERNIA'S, BACK PAIN. THORACIC AORTIC ANEURYSM, INFRARENAL AORTIC ANEURYSM Last Myocardial Infarction Date:: 2004 History of Any Multi-Drug Resistant Organisms: None Reported Past Surgical History: Back Surgery, Bariatric Surgery, Cholecystectomy, Heart Catheterization, Hernia Repair, Joint Replacement, Orthopedic Surgery Additional Past Surgical History / Comment(s): Cardiac cath-no PTCA d/t lesion position (treated medically by Dr. Vargas), left total knee replacement, total right hip replacement, back surgery X2 - 15 years ago and January 2016, plate in right femur., Ventral Hernia Repair (11/27/22), heart cath (12/19/22). Gastric sleeve 05/07/23 Past Anesthesia/Blood Transfusion Reactions: Previous Problems w/ Anesthesia, Postoperative Nausea & Vomiting (PONV) Additional Past Anesthesia/Blood Transfusion Reaction / Comment(s): Never received blood. Past Psychological History: Anxiety Smoking Status: Never smoker Past Alcohol Use History: Occasional Past Drug Use History: None Reported - Past Family History Father Family Medical History: Cancer Additional Family Medical History / Comment(s): in his 50s of unknown causes. Mother Family Medical History: Cancer Additional Family Medical History / Comment(s): of pancreatic cancer in her 50s. Brother(s) Family Medical History: Diabetes Mellitus Sister(s) Family Medical History: Cancer Additional Family Medical History / Comment(s): Breast cancer. General Exam Limitations: no limitations General appearance: alert, anxious Head exam: Present: atraumatic, normocephalic Eye exam: Present: normal appearance, PERRL ENT exam: Present: mucous membranes dry Neck exam: Present: normal inspection. Absent: tenderness, meningismus Respiratory exam: Present: normal lung sounds bilaterally. Absent: respiratory distress, wheezes, rales Cardiovascular Exam: Present: tachycardia, irregular rhythm GI/Abdominal exam: Present: soft. Absent: distended, tenderness Extremities exam: Present: normal inspection, normal capillary refill. Absent: pedal edema, calf tenderness Neurological exam: Present: alert, oriented X3, CN II-XII intact. Absent: motor sensory deficit Psychiatric exam: Present: anxious Skin exam: Present: warm, dry, intact. Absent: cyanosis, diaphoretic Course Vital Signs 12/07/23 05:43 Temperature 97.6 F Pulse Rate 142 H Respiratory 18 Rate Blood Pressure 151/75 O2 Sat by Pulse 95 Oximetry Medical Decision Making - Medical Decision Making Was pt. sent in by a medical professional or institution (, PA, SPLICING SUPERVISOR, urgent care, hospital, or detention...) When possible be specific @ -No Did you speak to anyone other than the patient for history (EMS, parent, family, police, friend...)? What history was obtained from this source @ -No Did you review nursing and triage notes (agree or disagree)? Why? @ -I reviewed and agree with nursing and triage notes Were old charts reviewed (outside hosp., previous admission, EMS record, old EKG, old radiological studies, urgent care reports/EKG's, detention records)? Report findings @ -No old charts were reviewed Differential Palpitations Ventricular arrhythmias, atrial arrhythmias, myocardial infarction, anemia, thyrotoxicosis, electrolyte imbalance, hypokalemia, pulmonary embolism, pulmonary disease, drugs, alcohol, anxiety, stress.... This is not meant to be an all-inclusive list. EKG interpreted by me (3pts min.). @EKG: Atrial fibrillation with RVR right bundle branch block, ventricular rate of 140, QRS duration 157, QTc [address] segment elevation. X-rays interpreted by me (1pt min.). @ -Chest x-ray showing subtle opacities in the bilateral lung bases. CT interpreted by me (1pt min.). @ -None done U/S interpreted by me (1pt. min.). @ -None done What testing was considered but not performed or refused? (CT, X-rays, U/S, labs)? Why? @ -None What meds were considered but not given or refused? Why? @ -None Did you discuss the management of the patient with other professionals (professionals i.e. , PA, SPLICING SUPERVISOR, lab, RT, psych nurse, health and social care teacher, prestressed concrete laborer, teacher, logistics supply officer, complex case manager)? Give summary @EMH Was smoking cessation discussed for >3mins.? @ -No Was critical care preformed (if so, how long)? @Yes 35 minutes Were there social determinants of health that impacted care today? How? (Homelessness, low income, unemployed, alcoholism, drug addiction, transpor tation, low edu. Level, literacy, decrease access to med. care, longterm, rehab)? @ -No Was there de-escalation of care discussed even if they declined (Discuss DNR or withdrawal of care, Hospice)? DNR status @ -No What co-morbidities impacted this encounter? (DM, HTN, Smoking, COPD, CAD, Cancer, CVA, ARF, Chemo, Hep., AIDS, mental health diagnosis, sleep apnea, morbid obesity)? @ -[Hypertension, CAD Was patient admitted / discharged? Hospital course, mention meds given and route, prescriptions, significant lab abnormalities, going to OR and other pertinent info. @ -58-year-old male presenting with palpitations, found to be in atrial fibrillation with RVR. Patient given saline bolus and started on Cardizem. Patient has normal CBC, CMP showing mild elevation in AST and ALT, negative troponin, TSH is pending. Patient admitted to internal medicine with cardiology on consult. Undiagnosed new problem with uncertain prognosis? @ -[No Drug Therapy requiring intensive monitoring for toxicity (Heparin, Nitro, Insulin, Cardizem)? @ -No Were any procedures done? @ -No Diagnosis/symptom? @ -New onset atrial fibrillation with RVR Acute, or Chronic, or Acute on Chronic? @ -Acute Uncomplicated (without systemic symptoms) or Complicated (systemic symptoms)? @ -Default Side effects of treatment? @ -No Exacerbation, Progression, or Severe Exacerbation? @ -No Poses a threat to life or bodily function? How? (Chest pain, [place], [place], pneumonia, PE, COPD, DKA, ARF, appy, cholecystitis, CVA, Diverticulitis, Homicidal, Suicidal, threat to staff... and all critical care pts) @ -[Yes, arrhythmia - Lab Data Result diagrams: 12/07/23 05:45 12/07/23 05:45 Lab Results 12/07/23 12/07/23 12/07/23 Range/Units 05:45 05:45 05:45 WBC 10.5 (3.8-10.6) k/uL RBC 5.11 (4.30-5.90) m/uL Hgb 17.0 (13.0-17.5) gm/dL Hct 49.6 (39.0-53.0) % MCV 97.0 (80.0-100.0) fL MCH 33.3 (25.0-35.0) pg MCHC 34.4 (31.0-37.0) g/dL RDW 13.7 (11.5-15.5) % Plt Count 267 (150-450) k/uL MPV 7.8 Neutrophils % 57 % Lymphocytes % 31 % Monocytes % 5 % Eosinophils % 3 % Basophils % 1 % Neutrophils # 6.0 (1.3-7.7) k/uL Lymphocytes # 3.3 (1.0-4.8) k/uL Monocytes # 0.5 (0-1.0) k/uL Eosinophils # 0.3 (0-0.7) k/uL Basophils # 0.1 (0-0.2) k/uL PT 10.6 (10.0-12.5) sec INR 1.0 (<1.2) APTT 24.8 (22.0-30.0) sec Sodium 140 (137-145) mmol/L Potassium 4.0 (3.5-5.1) mmol/L Chloride 102 (98-107) mmol/L Carbon Dioxide 27 (22-30) mmol/L Anion Gap 11 mmol/L BUN 13 (9-20) mg/dL Creatinine 0.93 (0.66-1.25) mg/dL Est GFR (CKD-EPI)AfAm >90 (>60 ml/min/1.73 sqM) Est GFR (CKD-EPI)NonAf >90 (>60 ml/min/1.73 sqM) Glucose 101 H (74-99) mg/dL Calcium 9.5 (8.4-10.2) mg/dL Magnesium 1.7 (1.6-2.3) mg/dL Total Bilirubin 0.9 (0.2-1.3) mg/dL AST 66 H (17-59) U/L ALT 55 H (4-49) U/L Alkaline Phosphatase 85 (38-126) U/L Troponin I (0.000-0.034) ng/mL Total Protein 8.5 H (6.3-8.2) g/dL Albumin 4.6 (3.5-5.0) g/dL Serum Alcohol 216 H* mg/dL 12/07/23 Range/Units 05:45 WBC (3.8-10.6) k/uL RBC (4.30-5.90) m/uL Hgb (13.0-17.5) gm/dL Hct (39.0-53.0) % MCV (80.0-100.0) fL MCH (25.0-35.0) pg MCHC (31.0-37.0) g/dL RDW (11.5-15.5) % Plt Count (150-450) k/uL MPV Neutrophils % % Lymphocytes % % Monocytes % % Eosinophils % % Basophils % % Neutrophils # (1.3-7.7) k/uL Lymphocytes # (1.0-4.8) k/uL Monocytes # (0-1.0) k/uL Eosinophils # (0-0.7) k/uL Basophils # (0-0.2) k/uL PT (10.0-12.5) sec INR (<1.2) APTT (22.0-30.0) sec Sodium (137-145) mmol/L Potassium (3.5-5.1) mmol/L Chloride (98-107) mmol/L Carbon Dioxide (22-30) mmol/L Anion Gap mmol/L BUN (9-20) mg/dL Creatinine (0.66-1.25) mg/dL Est GFR (CKD-EPI)AfAm (>60 ml/min/1.73 sqM) Est GFR (CKD-EPI)NonAf (>60 ml/min/1.73 sqM) Glucose (74-99) mg/dL Calcium (8.4-10.2) mg/dL Magnesium (1.6-2.3) mg/dL Total Bilirubin (0.2-1.3) mg/dL AST (17-59) U/L ALT (4-49) U/L Alkaline Phosphatase (38-126) U/L Troponin I 0.024 (0.000-0.034) ng/mL Total Protein (6.3-8.2) g/dL Albumin (3.5-5.0) g/dL Serum Alcohol mg/dL Critical Care Time Critical Care Time: Yes Total Critical Care Time: 35 Disposition Clinical Impression: Atrial fibrillation Disposition: ADMITTED IP TO THIS HOSP Condition: Stable Is patient prescribed a controlled substance at d/c from ED?: No Referrals: Taurus Neal MD [Primary Care Provider] - 1-2 days Time of Disposition: 06:30
[2023-12-07 06:07] LABS: Partial Thromboplastin Time 24.8 sec (22.0-30.0); Prothrombin Time 10.6 sec (10.0-12.5)
[2023-12-07 06:12] VITALS: TEMP 97.6
[2023-12-07] MEDS ORDERED: HEPARIN SODIUM 1,000 UN/ML (10ML VL) IV PRN (06:12)
[2023-12-07 06:13] LABS: ALT 55 U/L (4-49); AST 66 U/L (17-59); African American GFR (CKD) >90 (>60 ml/min/1.73 sqM); Albumin 4.6 g/dL (3.5-5.0); Alkaline Phosphatase 85 U/L (38-126); Anion Gap 11 mmol/L; Blood Urea Nitrogen 13 mg/dL (9-20); Calcium 9.5 mg/dL (8.4-10.2); Carbon Dioxide 27 mmol/L (22-30); Chloride 102 mmol/L (98-107); Glucose 101 mg/dL (74-99); Magnesium 1.7 mg/dL (1.6-2.3); Non-African American GFR(CKD) >90 (>60 ml/min/1.73 sqM); Sodium 140 mmol/L (137-145); Total Bilirubin 0.9 mg/dL (0.2-1.3); Total Protein 8.5 g/dL (6.3-8.2)
[2023-12-07] MEDS: HEPARIN SODIUM 1,000 UN/ML (10ML VL) IV ONE (06:20)
[2023-12-07] MEDS: HEPARIN SOD,PORK IN 0.45% NACL 25,000 UNIT in 0.45% NACL 1 250ML.BAG IV SCH (06:21)
[2023-12-07 06:23] LABS: Alcohol 216 mg/dL
[2023-12-07] MEDS ORDERED: NALOXONE 0.4 MG/ML 1 ML VIAL IV PRN (06:26)
[2023-12-07] MEDS: SODIUM CHLORIDE 0.9% 1,000 ML IV SCH (06:35)
--- NOTE | 2023-12-07 07:32 | XR ---
EXAMINATION TYPE: XR chest 2V DATE OF EXAM: 12/07/2023 COMPARISON: 09/11/2022 HISTORY: 58-year-old male dysrhythmia TECHNIQUE: PA and lateral views FINDINGS: Heart normal size. Aorta and pulmonary vasculature are within normal limits. Some strandy atelectasis at the right base without consolidation or pleural effusion. IMPRESSION: No acute cardiopulmonary process.
[2023-12-07] MEDS: APIXABAN 5 MG TAB PO SCH (10:33)
[2023-12-07] MEDS: AMIODARONE 200 MG TAB PO SCH (10:34)
[2023-12-07] MEDS: METOPROLOL SUCCINATE (ER) 25 MG TAB.ER.24H PO SCH (10:34)
--- NOTE | 2023-12-07 12:32 | P.CRDCN ---
History of Present Illness Consult date: 12/07/23 Consult reason: atrial fibrillation (New onset with RVR) History of present illness: History of present illness: This is a 58-year-old male patient of Dr. Luis with past medical history of hypertension, hyperlipidemia, nonobstructive coronary artery disease on prior cardiac catheterization, thoracic aortic aneurysm, obstructive sleep apnea not using CPAP, daily alcohol use, morbid obesity status post gastric bypass surgery with weight loss. We have been asked to evaluate the patient for new onset of atrial fibrillation with RVR. Patient gives history of recently being taken off metoprolol but was not feeling well following this. Patient presented to the hospital due to palpitations. No chest pain or chest pressure. He was found to be in atrial fibrillation with RVR and was started on heparin drip and Cardizem drip. Patient remains in atrial fibrillation heart rate running in the [id number] range at the time of evaluation. Patient has been on heparin drip and Cardizem drip. Patient transition to oral anticoagulation, Toprol-XL, amiodarone with improved rate control. Patient states that he is drinking 4-5 beers most days of the week. He denies any alcohol use. He denies history of diabetes, TIA, CVA. EKG atrial fibrillation and 140 bpm with right bundle branch block Chest x-ray: No acute process Sodium 140, potassium 4, creatinine 0.93. AST 66, ALT 55. Troponin negative x 2. TSH 3.14. Serum alcohol 216. Home cardiac medications: Losartan 100 mg once daily Lexiscan stress test performed 11/19/2022 revealed abnormal Lexiscan with reversible apical and mid anterior perfusion defects, EF 55%. Echocardiogram revealed EF of 50 to 55%. Cardiac catheterization performed 12/21/2022 revealed relatively normal coronary arteries other than the mid LAD 30% stenosis. Review Of Systems: At the time of my exam: CONSTITUTIONAL: Denies fever or chills. HEENT: Denies blurred vision, vision changes, or eye pain. Denies hemoptysis CARDIOVASCULAR: Denies chest pain. Denies orthopnea. Denies PND. Denies palpitations RESPIRATORY: Denies shortness of breath. GASTROINTESTINAL: Denies abdominal pain. Denies nausea or vomiting. HEMATOLOGIC: Denies bleeding disorders. GENITOURINARY: Denies any blood in urine. SKIN: Denies pruitis. Denies rash. Physical examination: Gen: This is a 58-year-old male in no acute distress VS: reviewed, blood pressure 127/89, heart rate 78, pulse ox 94% on room air. HEENT: Head is atraumatic, normocephalic. Pupils equal, round. Sclerae is anicteric. NECK: Supple. No JVD. LUNGS: Clear to auscultation. No wheezes or rhonchi. No intercostal retractions. HEART: Irregular rate and rhythm. No murmur. ABDOMEN: Soft No tenderness. EXTREMITIES: No pedal edema. No calf tenderness. NEUROLOGICAL: Patient is awake, alert and oriented x3. Assessment: New onset A-fib with RVR, paroxysmal Hypertension Hyperlipidemia Nonobstructive coronary artery disease on prior cardiac catheterization Thoracic aortic aneurysm Obstructive sleep apnea not on CPAP Alcohol abuse. Elevated liver function test Plan: Continue patient on amiodarone 400 mg twice daily with taper, Toprol XL, Eliquis, prescriptions have been sent to his pharmacy Obtain 2-D echocardiogram and Doppler study to assess cardiac structure and function If heart rate is controlled this afternoon, patient is cleared from cardiology for discharge home and he may follow-up with Dr. Luis in the office in 1 to 2 weeks. Alcohol cessation discussed with the patient Thank you kindly for this consultation. Nurse practitioner note has been reviewed, I agree with documented findings and plan of care. Patient was seen and examined. Past Medical History Past Medical History: Coronary Artery Disease (CAD), Hyperlipidemia, Hypertension, Sleep Apnea/CPAP/BIPAP Additional Past Medical History / Comment(s): SLEEP APNEA WITH BIPAP, RANULFO INGUINAL HERNIA'S, BACK PAIN. THORACIC AORTIC ANEURYSM, INFRARENAL AORTIC ANEURYSM Last Myocardial Infarction Date:: 2004 History of Any Multi-Drug Resistant Organisms: None Reported Past Surgical History: Back Surgery, Bariatric Surgery, Cholecystectomy, Heart Catheterization, Hernia Repair, Joint Replacement, Orthopedic Surgery Additional Past Surgical History / Comment(s): Cardiac cath-no PTCA d/t lesion position (treated medically by Dr. Vargas), left total knee replacement, total right hip replacement, back surgery X2 - 15 years ago and January 2016, plate in right femur., Ventral Hernia Repair (11/27/22), heart cath (12/19/22). Gastric sleeve 05/07/23 Past Anesthesia/Blood Transfusion Reactions: Previous Problems w/ Anesthesia, Postoperative Nausea & Vomiting (PONV) Additional Past Anesthesia/Blood Transfusion Reaction / Comment(s): Never received blood. Past Psychological History: Anxiety Smoking Status: Never smoker Past Alcohol Use History: Occasional Past Drug Use History: None Reported - Past Family History Father Family Medical History: Cancer Additional Family Medical History / Comment(s): in his 50s of unknown causes. Mother Family Medical History: Cancer Additional Family Medical History / Comment(s): of pancreatic cancer in her 50s. Brother(s) Family Medical History: Diabetes Mellitus Sister(s) Family Medical History: Cancer Additional Family Medical History / Comment(s): Breast cancer. Medications and Allergies Home Medications Medication Instructions Recorded Confirmed Type HYDROcodone/APAP 10-325MG [[place] 1 tab PO QID PRN 11/21/22 12/07/23 History 10-325] Losartan Potassium [Cozaar] 100 mg PO BID 11/21/22 12/07/23 History Allergies Allergy/AdvReac Type Severity Reaction Status Date / Time morphine AdvReac severe Verified 12/07/23 08:45 nausea and vomiting Physical Exam Vitals: Vital Signs Temp Pulse Resp BP Pulse Ox 12/07/23 09:00 91 16 124/92 96 12/07/23 06:26 103 H 18 128/96 94 L 12/07/23 05:43 97.6 F 142 H 18 151/75 95 Intake and Output 12/06/23 12/07/23 12/07/23 22:59 06:59 14:59 Other: Weight 99.79 kg Results 12/07/23 05:45 12/07/23 05:45 Cardiac Enzymes 12/07/23 12/07/23 Range/Units 05:45 05:45 AST 66 H (17-59) U/L Troponin I 0.024 (0.000-0.034) ng/mL Coagulation 12/07/23 Range/Units 05:45 PT 10.6 (10.0-12.5) sec APTT 24.8 (22.0-30.0) sec CBC 12/07/23 Range/Units 05:45 WBC 10.5 (3.8-10.6) k/uL RBC 5.11 (4.30-5.90) m/uL Hgb 17.0 (13.0-17.5) gm/dL Hct 49.6 (39.0-53.0) % Plt Count 267 (150-450) k/uL Comprehensive Metabolic Panel 12/07/23 Range/Units 05:45 Sodium 140 (137-145) mmol/L Potassium 4.0 (3.5-5.1) mmol/L Chloride 102 (98-107) mmol/L Carbon Dioxide 27 (22-30) mmol/L BUN 13 (9-20) mg/dL Creatinine 0.93 (0.66-1.25) mg/dL Glucose 101 H (74-99) mg/dL Calcium 9.5 (8.4-10.2) mg/dL AST 66 H (17-59) U/L ALT 55 H (4-49) U/L Alkaline Phosphatase 85 (38-126) U/L Total Protein 8.5 H (6.3-8.2) g/dL Albumin 4.6 (3.5-5.0) g/dL Current Medications Generic Name Dose Route Start Last Admin Trade Name Freq PRN Reason Stop Dose Admin Heparin Sodium (Porcine) 0 unit 12/07/23 06:12 Heparin Sodium 1,000 Un/Ml (10ml Vl) IV PER PROTOCOL PRN Low PTT Protocol Diltiazem HCl 125 mg/ Sodium 125 mls @ 5 mls/hr 12/07/23 05:45 12/07/23 05:58 Chloride IV 5 mg/hr .Q24H TAD 5 mls/hr Administration 5 MG/HR Heparin Sodium/Sodium Chloride 250 mls @ 10 mls/hr 12/07/23 06:15 12/07/23 06:21 25,000 unit/ Sodium Chloride IV 10.021 units/kg/hr .Q24H TAD 10 mls/hr Administration Protocol 10.021 UNITS/KG/HR Sodium Chloride 1,000 mls @ 75 mls/hr 12/07/23 06:30 12/07/23 06:35 Saline 0.9% IV 75 mls/hr .[id number] TAD Administration Naloxone HCl 0.2 mg 12/07/23 06:26 Naloxone 0.4 Mg/Ml 1 Ml Vial IV Q2M PRN Opioid Reversal Intake and Output 12/06/23 12/07/23 12/07/23 22:59 06:59 14:59 Other: Weight 99.79 kg 12/07/23 05:45 12/07/23 05:45
[2023-12-07 15:59] VITALS: PULSE 60; RESP 12
--- NOTE | 2023-12-07 16:35 | CA ---
Transthoracic Echo Report Name: Porfirio Lora Age: 58 Gender: M : 1965 Exam Date: 12/07/2023 09:17 Exam Location: [facility] Ht (in): 68 Wt (lb): 220 Ordering Physician: Jules Rizvi MD Attending/Referring Phys: [id number], [place] Patient Registration Representative Savannah Robison RDCS Procedure CPT: Indications: New Onset Atrial Fibrillation Cardiac Hx: Technical Quality: Technically difficult study Contrast 1: Definity Total Dose (mL): 2 Contrast 2: Total Dose (mL): MEASUREMENTS (Male / Female) Normal Values 2D ECHO LV Diastolic Diameter PLAX 4.7 cm 4.2 - 5.9 / 3.9 - 5.3 cm LV Systolic Diameter PLAX 3.3 cm IVS Diastolic Thickness 1.8 cm 0.6 - 1.0 / 0.6 - 0.9 cm LVPW Diastolic Thickness 1.6 cm 0.6 - 1.0 / 0.6 - 0.9 cm LV Relative Wall Thickness 0.7 RV Internal Dim ED PLAX 4.1 cm LA Volume 76.1 cm??? 18 - 58 / 22 - 52 cm??? LA Volume Index 34.2 cm???/m??? 16 - 28 cm???/m??? M-MODE Aortic Root Diameter MM 3.8 cm LA Systolic Diameter MM 4.9 cm LA Ao Ratio MM 1.3 AV Cusp Separation MM 1.7 cm DOPPLER AV Peak Velocity 162.8 cm/s AV Peak Gradient 10.6 mmHg AV Mean Velocity 121.0 cm/s AV Mean Gradient 6.4 mmHg AV Velocity Time Integral 25.8 cm LVOT Peak Velocity 128.6 cm/s LVOT Peak Gradient 6.6 mmHg LVOT Velocity Time Integral 20.6 cm MV Area PHT 3.4 cm??? Mitral E Point Velocity 90.7 cm/s Mitral A Point Velocity 0.3 cm/s Mitral E to A Ratio 269.7 MV Deceleration Time 221.6 ms MV E' Velocity 7.0 cm/s Mitral E to MV E' Ratio 13.0 TR Peak Velocity 226.3 cm/s TR Peak Gradient 20.5 mmHg Right Ventricular Systolic Press 25.5 mmHg FINDINGS Left Ventricle Severely increased left ventricular wall thickness. Left ventricular cavity size normal. No obvious regional wall motion abnormalities. Left ventricular ejection fraction is estimated at 50-55 %. Right Ventricle Right ventricular dilatation. Right ventricular systolic pressure within normal limits. Right Atrium Right atrium not well visualized. Left Atrium Moderately increased left atrial volume. Mildly increased left atrial area. Mitral Valve Structurally normal mitral valve. No mitral stenosis. Mild mitral regurgitation. Mild mitral annular calcification. Aortic Valve No aortic valve stenosis or regurgitation. Tricuspid Valve Structurally normal tricuspid valve. Mild tricuspid regurgitation. Pulmonic Valve Structurally normal pulmonic valve. Pericardium No pericardial effusion. Aorta Normal size aortic root and proximal ascending aorta. CONCLUSIONS Severe increased left ventricular wall thickness Left ventricular ejection fraction 50-55% Mild mitral regurgitation Mild tricuspid regurgitation No pericardial effusion Previewed by: Dr. Gabriel Luis DO (Electronically Signed) Final Date: 07 Dec 2023 16:34
[2023-12-07] MEDS ORDERED: HYDROcodone/APAP 10-325MG 1 EACH TAB PO PRN (16:36)
--- NOTE | 2023-12-07 16:38 | P.HPIM ---
History of Present Illness H&P Date: 12/07/23 Chief Complaint: Palpitations 58-year-old male history of thoracic aortic aneurysm, obstructive sleep apnea, morbid obesity status post gastric bypass surgery, daily alcohol use, hypertension, hyperlipidemia and nonobstructive coronary artery disease presenting with palpitations. Patient denies central chest pain. He states he feels a racing sensation. Denies known history of atrial fibrillation. He states he has had intermittent symptoms for several months. Patient states that he drinks alcohol regularly. In the ED patient was found to be in atrial fibrillation with RVR and is placed on IV heparin and Cardizem infusion EKG atrial fibrillation and 140 bpm with right bundle branch block Chest x-ray: No acute process Sodium 140, potassium 4, creatinine 0.93. AST 66, ALT 55. Troponin negative x 2. TSH 3.14. Serum alcohol 216. Home cardiac medications: Losartan 100 mg once daily Lexiscan stress test performed 11/19/2022 revealed abnormal Lexiscan with rever sible apical and mid anterior perfusion defects, EF 55%. Echocardiogram revealed EF of 50 to 55%. Cardiac catheterization performed 12/21/2022 revealed relatively normal coronary arteries other than the mid LAD 30% stenosis. Review of Systems REVIEW OF SYSTEMS: CONSTITUTIONAL: No fever, no malaise, no fatigue. HEENT: No recent visual problems or hearing problems. Denied any sore throat. CARDIOVASCULAR: No chest pain, orthopnea, PND, no palpitations, no syncope. PULMONARY: No shortness of breath, no cough, no hemoptysis. GASTROINTESTINAL: No diarrhea, no nausea, no vomiting, no abdominal pain. NEUROLOGICAL: No headaches, no weakness, no numbness. HEMATOLOGICAL: Denies any bleeding or petechiae. GENITOURINARY: Denies any burning micturition, frequency, or urgency. MUSCULOSKELETAL/RHEUMATOLOGICAL: Denies any joint pain, swelling, or any muscle pain. ENDOCRINE: Denies any polyuria or polydipsia. The rest of the 14-point review of systems is negative. Past Medical History Past Medical History: Coronary Artery Disease (CAD), Hyperlipidemia, Hypertension, Sleep Apnea/CPAP/BIPAP Additional Past Medical History / Comment(s): SLEEP APNEA WITH BIPAP, RANULFO INGUINAL HERNIA'S, BACK PAIN. THORACIC AORTIC ANEURYSM, INFRARENAL AORTIC ANEURYSM Last Myocardial Infarction Date:: 2004 History of Any Multi-Drug Resistant Organisms: None Reported Past Surgical History: Back Surgery, Bariatric Surgery, Cholecystectomy, Heart Catheterization, Hernia Repair, Joint Replacement, Orthopedic Surgery Additional Past Surgical History / Comment(s): Cardiac cath-no PTCA d/t lesion position (treated medically by Dr. Vargsa), left total knee replacement, total right hip replacement, back surgery X2 - 15 years ago and January 2016, plate in right femur., Ventral Hernia Repair (11/27/22), heart cath (12/19/22). Gastric sleeve 05/07/23 Past Anesthesia/Blood Transfusion Reactions: Previous Problems w/ Anesthesia, Postoperative Nausea & Vomiting (PONV) Additional Past Anesthesia/Blood Transfusion Reaction / Comment(s): Never received blood. Past Psychological History: Anxiety Smoking Status: Never smoker Past Alcohol Use History: Occasional Past Drug Use History: None Reported - Past Family History Father Family Medical History: Cancer Additional Family Medical History / Comment(s): in his 50s of unknown causes. Mother Family Medical History: Cancer Additional Family Medical History / Comment(s): of pancreatic cancer in her 50s. Brother(s) Family Medical History: Diabetes Mellitus Sister(s) Family Medical History: Cancer Additional Family Medical History / Comment(s): Breast cancer. Medications and Allergies Home Medications Medication Instructions Recorded Confirmed Type HYDROcodone/APAP 10-325MG [[place] 1 tab PO QID PRN 11/21/22 12/07/23 History 10-325] Losartan Potassium [Cozaar] 100 mg PO BID 11/21/22 12/07/23 History Amiodarone [Cordarone] 400 mg PO BID #56 tab 12/07/23 Rx Apixaban [Eliquis] 5 mg PO BID #180 tab 12/07/23 Rx Metoprolol Succinate (ER) [Toprol 25 mg PO BID #180 tab 12/07/23 Rx XL] Allergies Allergy/AdvReac Type Severity Reaction Status Date / Time morphine AdvReac severe Verified 12/07/23 08:45 nausea and vomiting Physical Exam Vitals: Vital Signs Temp Pulse Resp BP Pulse Ox 12/07/23 11:29 78 19 127/89 94 L 12/07/23 10:18 88 18 133/88 93 L 12/07/23 09:00 91 16 124/92 96 12/07/23 06:26 103 H 18 128/96 94 L 12/07/23 05:43 97.6 F 142 H 18 151/75 95 Intake and Output 12/06/23 12/07/23 12/07/23 22:59 06:59 14:59 Other: Weight 99.79 kg Gen: This is a 58-year-old male in no acute distress VS: reviewed, blood pressure 127/89, heart rate 78, pulse ox 94% on room air. HEENT: Head is atraumatic, normocephalic. Pupils equal, round. Sclerae is anicteric. NECK: Supple. No JVD. LUNGS: Clear to auscultation. No wheezes or rhonchi. No intercostal retractions. HEART: Irregular rate and rhythm. No murmur. ABDOMEN: Soft No tenderness. EXTREMITIES: No pedal edema. No calf tenderness. NEUROLOGICAL: Patient is awake, alert and oriented x3. Results CBC & Chem 7: 12/07/23 05:45 12/07/23 05:45 Labs: Abnormal Lab Results - Last 24 Hours (Table) 12/07/23 Range/Units 05:45 Glucose 101 H (74-99) mg/dL AST 66 H (17-59) U/L ALT 55 H (4-49) U/L Total Protein 8.5 H (6.3-8.2) g/dL Serum Alcohol 216 H* mg/dL Assessment and Plan Assessment: 1. New onset atrial fibrillation with RVR -- Patient has been placed on IV heparin and IV Cardizem infusion in ED -- Cardiology recommending to transition to amiodarone 400 mg twice daily with taper to once daily along with Toprol-XL; Eliquis 5 mg twice daily -- Patient to follow-up with cardiology in 1 to 2 weeks with possible plan to di scharge if heart rate is brought under control 2. Hypertension; patient takes losartan 100 mg twice daily; has been placed on metoprolol 25 mg twice daily 3. Hyperlipidemia; currently not on any statin therapy; will order lipid profile 4. Chronic alcohol abuse; counseling done; patient will be placed on CIWA protocol as needed 5. Elevated liver enzymes; likely related to chronic alcohol use; will repeat liver enzymes 6. Coronary artery disease; nonobstructive on previous cardiac catheterization 7. Obstructive sleep apnea; patient does not use BiPAP DVT prophylaxis; SCDs/IV heparin Code status; full code
[2023-12-07 17:18] VITALS: BP 148/87
[2023-12-07] MEDS ORDERED: LOSARTAN 50 MG TAB PO SCH (21:00)
== END 2023-12-07 17:30 | disposition home or self-care (01) | DRG 310 ==
LOC: EC 05:29 → 3SCARD 06:26
PROVIDERS: ADMIT Hospitalist; ATTEND Hospitalist
DX: I48.91 Unspecified atrial fibrillation (principal); I71.20 Thoracic aortic aneurysm, without rupture, unspecified; I71.43 Infrarenal abdominal aortic aneurysm, without rupture; E66.01 Morbid (severe) obesity due to excess calories; F10.10 Alcohol abuse, uncomplicated; I10 Essential (primary) hypertension; E78.5 Hyperlipidemia, unspecified; I25.10 Atherosclerotic heart disease of native coronary artery without angina pectoris; G47.33 Obstructive sleep apnea (adult) (pediatric); I45.10 Unspecified right bundle-branch block; Y90.7 Blood alcohol level of 200-239 mg/100 ml; Z96.652 Presence of left artificial knee joint; Z96.641 Presence of right artificial hip joint; Z79.01 Long term (current) use of anticoagulants; Z68.33 Body mass index [BMI] 33.0-33.9, adult; Z79.899 Other long term (current) drug therapy; I25.2 Old myocardial infarction; Z98.84 Bariatric surgery status; Z88.5 Allergy status to narcotic agent
CPT/HCPCS: 36415; 71046; 80053; 80320; 83735; 84443; 84484; 85025; 85610; 85730; 93005; 93306; 96361; 96365; 96366; 96368; 99291

== ENCOUNTER → 2024-05-04 | Outpatient (CLI) | payer BC, MEDICARE ==
[2024-05-04 11:16] LABS: Basophils # (A) 0.06 X 10*3/uL (0.00-0.10); Basophils % (A) 0.7 %; Eosinophils # (A) 0.29 X 10*3/uL (0.04-0.35); Eosinophils % (A) 3.5 %; HCT 45.6 % (39.6-50.0); HGB 15.3 g/dL (13.0-17.0); Lymphocytes # (A) 1.55 X 10*3/uL (0.90-5.00); Lymphocytes % (A) 18.9 %; MCH 31.2 pg (27.0-32.0); MCHC 33.6 g/dL (32.0-37.0); MCV 93.1 FL (80.0-97.0); Mean Platelet Volume 9.4 FL (9.5-12.2); Monocytes # (A) 0.55 X 10*3/uL (0.20-1.00); Monocytes % (A) 6.7 %; NRBC Per 100 WBC 0 X 10*3/uL (0.00-0.01); Neutrophils # (A) 5.73 X 10*3/uL (1.80-7.70); Neutrophils % (A) 69.7 %; Platelet Count 263 X 10*3/uL (140-440); RDW 13.2 % (11.5-14.5); WBC 8.22 X 10*3/uL (4.50-10.00)
[2024-05-04 11:28] LABS: Blood Urea Nitrogen 11.6 mg/dL (9.0-27.0); Carbon Dioxide 27.3 mmol/L (21.6-31.8); Chloride 100 mmol/L (96-109); Potassium 4.6 mmol/L (3.5-5.5); Sodium 138 mmol/L (135-145)
== END | disposition home or self-care (01) ==
LOC: LABPAT 07:35
PROVIDERS: ATTEND Internal Medicine Clinical Cardiac Electrophysiology
DX: Z01.812 Encounter for preprocedural laboratory examination (principal); I48.0 Paroxysmal atrial fibrillation
CPT/HCPCS: 80051; 82565; 84520; 85025

== ENCOUNTER 2024-05-05 09:33 | Day surgery (SDC) | payer BC, MEDICARE ==
[2024-04-30 12:19] VITALS: BMI 34.2
[~2024-05-05 09:33] MED LIST changes: -ACETAMINOPHEN TAB 500 MG TAB PO PRN; -BUPIVACAINE (PF) 0.25% 30 ML VIAL SQ ONE; -DEXAMETHASONE SOD PHOSPHATE 4 MG/ML 1 ML VIAL IV ONE; -GLYCOPYRROLATE 0.2 MG/ML 2 ML VIAL ONE; -HEPARIN SODIUM,PORCINE/PF 5,000 UNIT/0.5 ML SYRINGE SQ PRN; -HYDROmorphone 0.5 MG/0.5 ML SYRINGE IVP PRN; -LACTATED RINGERS 1,000 ML IV ONE; -LACTATED RINGERS 1,000 ML IV SCH; -LIDOCAINE 1% (10MG/ML) FOR IV START INTRADERMA PRN; -LIDOCAINE 2% INJ 20 MG/ML (2 ML VIAL) ONE; -MIDAZOLAM 2 MG/2 ML VIAL IVP ONE; -MIDAZOLAM 2 MG/2 ML VIAL ONE; -NEOSTIGMINE 1 MG/ML 10 ML VIAL ONE; -ONDANSETRON 4 MG/2 ML VIAL IVP ONE; -PROPOFOL 10 MG/ML 20 ML VIAL IV ONE; -ROCURONIUM 10 MG/ML (5 ML VIAL) IV ONE; -ROPIVACAINE 5 MG/ML 30 ML VIAL ONE; -SODIUM CHLORIDE 0.9% (PF) 10 ML VIAL ONE; -SUCCINYLCHOLINE CHLORIDE 200 MG/10 ML VIAL IV ONE; -WATER FOR INJECTION, STERILE 10 ML VIAL IV ONE; -ceFAZolin 3 GM in SODIUM CHLORIDE 0.9% 100 ML IVPB PRN; -ePHEDrine 50 MG/ML 1 ML VIAL ONE; +fentaNYL (PF) 50 MCG/ML 2 ML AMP IV PRN; -fentaNYL (PF) 50 MCG/ML 2 ML AMP IVP ONE; -fentaNYL (PF) 50 MCG/ML 2 ML AMP ONE
[2024-05-05] MEDS: SODIUM CHLORIDE 0.9% 1,000 ML IV SCH (10:05)
[2024-05-05 10:20] LABS: Basophils % (A) 1 %; Eosinophils % (A) 3 %; HCT 49.7 % (39.0-53.0); HGB 16.6 gm/dL (13.0-17.5); Lymphocytes % (A) 21 %; MCH 32.3 pg (25.0-35.0); MCHC 33.5 g/dL (31.0-37.0); MCV 96.4 fL (80.0-100.0); Mean Platelet Volume 7.5; Monocytes # (A) 0.5 k/uL (0-1.0); Monocytes % (A) 5 %; Neutrophils # (A) 6.9 k/uL (1.3-7.7); Neutrophils % (A) 70 %; Platelet Count 265 k/uL (150-450); RBC 5.16 m/uL (4.30-5.90); WBC 9.8 k/uL (3.8-10.6)
[2024-05-05 10:21] LABS: Basophils # (A) 0.1 k/uL (0-0.2); Eosinophils # (A) 0.3 k/uL (0-0.7)
[2024-05-05 10:26] LABS: ALT 61 U/L (4-49); AST 58 U/L (17-59); African American GFR (CKD) 87 (>60 ml/min/1.73 sqM); Albumin 4.6 g/dL (3.5-5.0); Alkaline Phosphatase 65 U/L (38-126); Anion Gap 2 mmol/L; Blood Urea Nitrogen 12 mg/dL (9-20); Calcium 9.6 mg/dL (8.4-10.2); Carbon Dioxide 35 mmol/L (22-30); Chloride 102 mmol/L (98-107); Glucose 99 mg/dL (74-99); Non-African American GFR(CKD) 75 (>60 ml/min/1.73 sqM); Potassium 4.3 mmol/L (3.5-5.1); Sodium 139 mmol/L (137-145); Total Bilirubin 1.4 mg/dL (0.2-1.3)
[2024-05-05] MEDS: SCOPOLAMINE 1 MG/72 HR PATCH TRANSDERM STA (11:00)
[2024-05-05] MEDS: SODIUM CHLORIDE 0.9% 1,000 ML IV ONE (11:48)
[2024-05-05] MEDS: HEPARIN SOD,PORK IN 0.45% NACL 25,000 UNIT in 0.45% NACL 1 250ML.BAG IV ONE (11:49)
[2024-05-05] MEDS ORDERED: PHENYLEPHRINE 10 MG/ML VIAL ONE (11:52)
[2024-05-05] MEDS ORDERED: ePHEDrine 50 MG/ML 1 ML VIAL ONE (11:52)
[2024-05-05] MEDS ORDERED: HEPARIN SODIUM,PORCINE 10,000 UNIT/ML 1 ML VIAL ONE (11:52)
[2024-05-05] MEDS ORDERED: ONDANSETRON 4 MG/2 ML VIAL ONE (11:52)
[2024-05-05] MEDS ORDERED: SUCCINYLCHOLINE CHLORIDE 200 MG/10 ML VIAL IV ONE (11:52)
[2024-05-05] MEDS ORDERED: PROPOFOL 10 MG/ML 20 ML VIAL IV ONE (11:52)
[2024-05-05] MEDS ORDERED: GLYCOPYRROLATE 0.2 MG/ML 2 ML VIAL ONE (11:52)
[2024-05-05] MEDS ORDERED: DEXAMETHASONE SOD PHOSPHATE 10 MG/ML 1 ML VIAL ONE (11:52)
[2024-05-05] MEDS ORDERED: LIDOCAINE 1% INJ 10MG/ML (20 ML MDV) ONE (11:52)
[2024-05-05] MEDS ORDERED: MIDAZOLAM 2 MG/2 ML VIAL ONE (11:52)
[2024-05-05] MEDS ORDERED: KETAMINE HCL IN 0.9 % NACL 50 MG/5 ML SYRINGE ONE (11:52)
[2024-05-05] MEDS ORDERED: fentaNYL (PF) 50 MCG/ML 2 ML AMP ONE (11:52)
[2024-05-05] MEDS: LIDOCAINE 1% INJ 10MG/ML (20 ML MDV) SQ ONE (12:33)
[2024-05-05] MEDS: IOPAMIDOL-370 100ML BTL INJ ONE (14:08)
[2024-05-05] MEDS: HEPARIN SODIUM,PORCINE 10,000 UNIT in SODIUM CHLORIDE 0.9% 1,000 ML IRRIGATION ONE (14:09)
[2024-05-05] MEDS: HEPARIN SODIUM,PORCINE (1 ML) 2,500 UNIT in SODIUM CHLORIDE 0.9% 250 ML IRRIGATION ONE (14:09)
[2024-05-05] MEDS ORDERED: HYDROcodone/APAP 10-325MG 1 EACH TAB PO PRN (15:09)
--- NOTE | 2024-05-05 15:09 | P.HPCAR ---
History of Present Illness This is Dr. Vargas dictating an H/P on this patient The patient was interviewed and examined IMPRESSION / ASSESSMENT: Paroxysmal atrial fibrillation with RVR, symptomatic with dizziness and shortness of breath Mild CAD Severe LVH, ejection fraction 50-55% Underlying right bundle branch block pattern Mild CAD, diffusely present in the distal portion of the LAD PLAN: A-fib ablation Continue anticoagulation Heparin dose calculated for the procedure HPI Patient continues to have episodes of atrial fibrillation with RVR which are quite symptomatic He denies any fever chills cough expectoration Occasional chest discomfort ROS: No fever chills or rigors, no cough, phlegm or expectoration, no nausea, vomiting or diarrhea, no hematuria, dysuria, no musculoskeletal complaints, no strokes or seizures, no skin lesions. 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 REVIEW OF LABS, ECG & MEDICAL DATA Normal white count, hemoglobin normal 16.6 Normal platelet count of 265,000 Sodium 139, potassium 4.3 BUN 12 and creatinine 1.1 TSH 3.4 Physical Exam Vitals: Vital Signs Temp Pulse Resp BP BP Pulse Ox 05/05/24 14:33 97 F L 62 16 123/75 97 05/05/24 10:05 98.0 F 53 L 16 189/98 140/92 100 Intake and Output 05/05/24 05/05/24 05/05/24 06:59 14:59 22:59 Intake Total 422 Balance 422 Intake: IV 422 Other: Weight 103 kg Past Medical History Past Medical History: Coronary Artery Disease (CAD), Hyperlipidemia, Hypertension, Sleep Apnea/CPAP/BIPAP Additional Past Medical History / Comment(s): SLEEP APNEA WITH BIPAP, RANULFO INGUINAL HERNIA'S, BACK PAIN. THORACIC AORTIC ANEURYSM, INFRARENAL AORTIC ANEURYSM Last Myocardial Infarction Date:: 2004 History of Any Multi-Drug Resistant Organisms: None Reported Past Surgical History: Back Surgery, Bariatric Surgery, Cholecystectomy, Heart Catheterization, Hernia Repair, Joint Replacement, Orthopedic Surgery Additional Past Surgical History / Comment(s): Cardiac cath-no PTCA d/t lesion position (treated medically by Dr. Vargas), left total knee replacement, total right hip replacement, back surgery X2 - 15 years ago and January 2016, plate in right femur., Ventral Hernia Repair (11/27/22), heart cath (12/19/22). Gastric sleeve 05/07/23 Past Anesthesia/Blood Transfusion Reactions: Previous Problems w/ Anesthesia, Postoperative Nausea & Vomiting (PONV) Additional Past Anesthesia/Blood Transfusion Reaction / Comment(s): Never received blood. Smoking Status: Never smoker - Past Family History Father Family Medical History: Cancer Additional Family Medical History / Comment(s): in his 50s of unknown causes. Mother Family Medical History: Cancer Additional Family Medical History / Comment(s): of pancreatic cancer in her 50s. Brother(s) Family Medical History: Diabetes Mellitus Sister(s) Family Medical History: Cancer Additional Family Medical History / Comment(s): Breast cancer. Physical Examination Vital Signs Temp Pulse Resp BP BP Pulse Ox 05/05/24 14:33 97 F L 62 16 123/75 97 05/05/24 10:05 98.0 F 53 L 16 189/98 140/92 100 Intake and Output 05/05/24 05/05/24 05/05/24 06:59 14:59 22:59 Intake Total 422 Balance 422 Intake: IV 422 Other: Weight 103 kg Results 05/05/24 09:45 05/05/24 09:45 Cardiac Enzymes 05/05/24 Range/Units 09:45 AST 58 (17-59) U/L CBC 05/05/24 Range/Units 09:45 WBC 9.8 (3.8-10.6) k/uL RBC 5.16 (4.30-5.90) m/uL Hgb 16.6 (13.0-17.5) gm/dL Hct 49.7 (39.0-53.0) % Plt Count 265 (150-450) k/uL Comprehensive Metabolic Panel 05/05/24 Range/Units 09:45 Sodium 139 (137-145) mmol/L Potassium 4.3 (3.5-5.1) mmol/L Chloride 102 (98-107) mmol/L Carbon Dioxide 35 H (22-30) mmol/L BUN 12 (9-20) mg/dL Creatinine 1.08 (0.66-1.25) mg/dL Glucose 99 (74-99) mg/dL Calcium 9.6 (8.4-10.2) mg/dL AST 58 (17-59) U/L ALT 61 H (4-49) U/L Alkaline Phosphatase 65 (38-126) U/L Total Protein 8.0 (6.3-8.2) g/dL Albumin 4.6 (3.5-5.0) g/dL Current Medications Generic Name Dose Route Start Last Admin Trade Name Freq PRN Reason Stop Dose Admin Fentanyl Citrate 50 mcg 05/05/24 07:00 Fentanyl (Pf) 50 Mcg/Ml 2 Ml Amp IV 05/05/24 23:00 Q3M PRN Phase I - Pain Control Sodium Chloride 1,000 mls @ 20 mls/hr 05/05/24 06:00 05/05/24 10:05 Saline 0.9% IV 06/04/24 05:59 20 mls/hr .Q24H TAD Administration Lactated Ringer's 1,000 mls @ 20 mls/hr 05/05/24 06:00 Lactated Ringers IV 06/04/24 05:59 .Q24H TAD Midazolam HCl 2 mg 05/05/24 07:00 Midazolam 2 Mg/2 Ml Vial IV 05/05/24 23:00 ONCE PRN Pre-Op Anxiety Intake and Output 05/05/24 05/05/24 05/05/24 06:59 14:59 22:59 Intake Total 422 Balance 422 Intake: IV 422 Other: Weight 103 kg Patient Weight 05/06/24 06:59 Weight 103 kg 05/05/24 09:45 05/05/24 09:45
--- NOTE | 2024-05-05 15:16 | P.EPPROC ---
- EP Procedure Note Electrophysiology Procedure Note: PROCEDURE A. fib ablation PVI and left atrial septal ablation DIAGNOSIS Paroxysmal atrial fibrillation, symptomatic, refractory to therapy RESULT No left atrial appendage mass seen on intracardiac echo, large left atrial appendage Mildly thickened pericardium without effusion. Severe LVH with preserved systolic function Successful A. fib ablation/pulmonary vein isolation of all veins using cryo- ablation Complete entrance block in all 4 veins confirmed Left atrial septal ablation, ablation of the left atrial bryon in between left superior and left inferior pulmonary veins No evidence for phrenic nerve injury Esophageal deflection YES / NO Electrical cardioversion with a synchronized shock across the chest YES / NO PROCEDURE DETAILS Written informed consent prior to procedure. Patient brought to the EP lab. General anesthesia given. Heparin administered. A city maintained above 300 seconds Both groins prepped and draped per protocol and venous sheaths placed. Esophagus intubated, circa catheter for temperature monitoring an endoscope for possible esophageal deflection. Phrenic nerve monitoring performed. Esophageal temperature monitoring performed. Esophageal deflection performed if circa catheter overlapping with the balloon or circa temperature less than 27.5C Intracardiac echocardiography performed. Pericardium evaluated. Left atrial appendage evaluated. Left atrium evaluated along with pulmonary veins Transseptal catheterization performed under fluoroscopic guidance and intracardiac echo guidance Cryoablation sheath exchanged, balloon catheter along with achieve catheter placed in the left atrium. Pulmonary veins isolated in the following sequence: Left superior pulmonary vein followed by left inferior pulmonary vein, followed by right inferior pulmonary vein and lastly right superior pulmonary vein. Phrenic nerve stimulation along with capture thresholds within the SVC and right superior pulmonary vein to identify the phrenic nerve proximity to the cryo- balloon. Pulmonary veins isolated and confirmed with entrance and exit block. Phrenic nerve integrity confirmed at the end of the procedure Ablation of the left atrial septum performed with cannulation of the superior branch of the right inferior and the inferior branch of the right superior vein to achieve ablation of the posterior septum of the left atrium. Ablation of electrograms confirmed Diagnostic catheters for the high right atrium, His bundle, coronary sinus golden karin. LA pressures recorded LA pressure: Diagnostic EP study with coronary sinus pacing and recording Baseline measurements: AH 103 ms, HV interval 46 ms Sinus 1039 ms. Right bundle branch block pattern Sinus node recovery times at a pacing cycle length of 600 ms was 1462 ms. AV node Wenckebach block 570 ms Burst stimulation from the high right atrium from 400 ms down to 300 ms did not induce atrial fibrillation Venous sheaths were removed and hemostasis assured with a closure device. Patient extubated and transferred to recovery PROCEDURES PERFORMED Diagnostic EP study CS pacing and recording Left and right transseptal catheterization Catheter the mapping of the tachycardia Intracardiac echocardiography Pulmonary vein isolation with transseptal and comprehensive EPS, [id number] Linear ablation, left atrium, [id number]
[2024-05-05] MEDS ORDERED: ACETAMINOPHEN TAB 325 MG TAB PO PRN (16:24)
[2024-05-05] MEDS: LACTATED RINGERS 1,000 ML IV SCH (17:28)
[2024-05-05] MEDS: METOPROLOL SUCCINATE (ER) 25 MG TAB.ER.24H PO SCH (20:36)
[2024-05-05] MEDS: CYCLOBENZAPRINE 5 MG TAB PO PRN (21:23)
[2024-05-06 08:14] VITALS: BP 147/84; PULSE 55; RESP 18; TEMP 98.3
[2024-05-06] MEDS: LOSARTAN 50 MG TAB PO SCH (08:16)
[2024-05-06] MEDS: RIVAROXABAN 20 MG TAB PO SCH (08:16)
[2024-05-06] MEDS: AMIODARONE 100 MG TAB PO SCH (08:16)
--- NOTE | 2024-05-07 13:58 | P.DS ---
Providers Attending physician: Nirmal Vargas Primary care physician: Taurus Irizarryhven [facility] Course: Patient is doing well post AF ablation Groins of healed well No dizziness no lightheadedness mild sore throat No chest pain On examination blood pressures 136/77 mmHg pulse rate in the 50s Breath sounds are clear no rhonchi no crackles Heart sounds S1-S2 normal Groins of healed well no hematoma Impression A-fib ablation with PVI and left atrial septal ablation Increased BMI Hypertension Plan Reduce the dose of amiodarone 200 mg p.o. daily Discontinue amiodarone in 4 weeks Continue losartan and low-dose metoprolol at 25 mg twice daily Continue Xarelto Xarelto must be continued UNINTERRUPTED for 3 months Patient instructed not to stop Xarelto for any reason for the first 3 months post ablation, unless it is a bleeding emergency Patient Condition at Discharge: Stable Plan - Discharge Summary Discharge Rx Participant: No New Discharge Prescriptions: No Action Losartan Potassium [Cozaar] 100 mg PO DAILY HYDROcodone/APAP 10-325MG [[place] 10-325] 1 tab PO QID PRN PRN Reason: Pain Cyclobenzaprine [Flexeril] 5 mg PO TID PRN PRN Reason: Pain Metoprolol Succinate (ER) [Toprol XL] 25 mg PO BID #180 tab Rivaroxaban [Xarelto] 20 mg PO DAILY Amiodarone [Cordarone] 200 mg PO DAILY Discharge Medication List HYDROcodone/APAP 10-325MG [[place] 10-325] 1 tab PO QID PRN 11/21/22 [History] Losartan Potassium [Cozaar] 100 mg PO DAILY 11/21/22 [History] Metoprolol Succinate (ER) [Toprol XL] 25 mg PO BID #180 tab 12/07/23 [Rx] Amiodarone [Cordarone] 200 mg PO DAILY 04/30/24 [History] Cyclobenzaprine [Flexeril] 5 mg PO TID PRN 04/30/24 [History] Rivaroxaban [Xarelto] 20 mg PO DAILY 04/30/24 [History] Follow up Appointment(s)/Referral(s): Gabriel Luis DO [STAFF PHYSICIAN] - 05/14/24 8:15 am Patient Instructions/Handouts: Cardiac Ablation (DC), Electrophysiology Study (DC) Discharge Disposition: HOME SELF-CARE
== END 2024-05-06 09:08 | disposition home or self-care (01) ==
LOC: CATHEP 09:33 → 6NMEDSUR 14:00 → CATHEP 05-06 09:08
PROVIDERS: ATTEND Internal Medicine Clinical Cardiac Electrophysiology
CPT/HCPCS: 80053; 84443; 85025; 86850; 86900; 86901; 93005; 93656; 93657

== ENCOUNTER → 2024-05-08 | Outpatient (CLI) | payer BC, MEDICARE ==
--- NOTE | 2024-05-08 14:47 | MR ---
EXAMINATION TYPE: MR cervical spine wo con DATE OF EXAM: 05/08/2024 COMPARISON: Cervical spine radiograph 03/26/2024 HISTORY: Neck pain, headaches, BUE weakness. TECHNIQUE: Multiplanar, multisequence images of the cervical spine were acquired without contrast. FINDINGS: Alignment: The cervical vertebral bodies have preserved heights. Alignment is within normal limits gi loraine patient positioning. Bones: Type II Modic changes involving the endplates around the C5-C6 disc. The remaining bone signal is within normal limits. Cord: The spinal cord is unremarkable with regards to their signal intensity and morphology. Discs: Multilevel disc desiccation is present. C2-C3: No significant disc pathology. The spinal canal is patent. No neural foraminal stenosis. C3-C4: Eccentric left disc bulge with minimal effacement of the anterior thecal sac. No neural forami nal stenosis. C4-C5: No significant disc pathology. The spinal canal is patent. No neural foraminal stenosis. C5-C6: Posterior disc osteophyte complex with mild effacement of the anterior thecal sac. Uncoverteb ral joint hypertrophy with moderate left and mild right neural foraminal stenosis. C6-C7: Posterior distal aspect complex with minimal effacement of the anterior thecal sac. Uncoverte bral joint hypertrophy with moderate to severe bilateral neuroforaminal stenosis. C7-T1: No significant disc pathology. The spinal canal is patent. No neural foraminal stenosis. Other: Right posterior neck subcutaneous tissue 1.2 cm T2 hyperintense lesion which may represent a p ilomatricoma. IMPRESSION: Multilevel degenerative disc disease with uncovertebral joint hypertrophy. Most pronounced at C5-C6 a nd C6-C7 with mild central canal stenosis at C5-C6. Moderate left and mild right neural foraminal sena nosis at C5-C6. Moderate to severe bilateral neuroforaminal stenosis at C6-C7. [facility], , 05/08/2024 2:44 PM
== END | disposition home or self-care (01) ==
LOC: RADMRIMAIN 06:13
PROVIDERS: ATTEND Orthopaedic Surgery
DX: M47.22 Other spondylosis with radiculopathy, cervical region (principal); M50.123 Cervical disc disorder at C6-C7 level with radiculopathy; M99.71 Connective tissue and disc stenosis of intervertebral foramina of cervical region; M48.02 Spinal stenosis, cervical region
CPT/HCPCS: 72141

== ENCOUNTER 2024-11-18 20:36 | Observation (INO) | payer BC, MEDICARE ==
[2024-11-18] MEDS: ASPIRIN 81 MG PO STA (21:12)
[2024-11-18] MEDS: SODIUM CHLORIDE 0.9% 1,000 ML IV STA (21:12)
[2024-11-18] MEDS: NITROGLYCERIN SL TABS 0.4 MG TAB SUBLINGUAL STA (21:14)
[2024-11-18 21:20] LABS: Basophils # (A) 0.05 10*3/uL (0.00-0.10); Basophils % (A) 0.6 %; Eosinophils # (A) 0.18 10*3/uL (0.04-0.35); Eosinophils % (A) 2.3 %; HCT 46.2 % (39.6-50.0); HGB 16.2 g/dL (13.0-17.0); Lymphocytes # (A) 1.52 10*3/uL (0.90-5.00); Lymphocytes % (A) 19.3 %; MCH 32.1 pg (27.0-32.0); MCHC 35.1 g/dL (32.0-37.0); MCV 91.7 fL (80.0-97.0); Mean Platelet Volume 9.3 fL (9.5-12.2); Monocytes # (A) 0.72 10*3/uL (0.20-1.00); Monocytes % (A) 9.1 %; Neutrophils % (A) 68.4 %; Platelet Count 218 10*3/uL (140-440); RBC 5.04 10*6/uL (4.40-5.60); RDW 12.5 % (11.5-14.5); WBC 7.89 10*3/uL (4.50-10.00)
[2024-11-18 21:27] LABS: ALT 36 U/L (4-49); AST 46 U/L (17-59); African American GFR (CKD) >90 (>60 ml/min/1.73 sqM); Albumin 4.4 g/dL (3.5-5.0); Alkaline Phosphatase 64 U/L (38-126); Anion Gap 10 mmol/L; Blood Urea Nitrogen 12 mg/dL (9-20); Calcium 9.4 mg/dL (8.4-10.2); Carbon Dioxide 26 mmol/L (22-30); Chloride 101 mmol/L (98-107); Glucose 99 mg/dL (74-99); Magnesium 1.6 mg/dL (1.6-2.3); Non-African American GFR(CKD) >90 (>60 ml/min/1.73 sqM); Potassium 4.3 mmol/L (3.5-5.1); Sodium 137 mmol/L (137-145); Total Bilirubin 0.8 mg/dL (0.2-1.3); Total Protein 7.7 g/dL (6.3-8.2)
[2024-11-18 21:31] LABS: Prothrombin Time 11.3 sec (10.0-12.5)
--- NOTE | 2024-11-18 21:44 | XR ---
EXAMINATION TYPE: XR chest 2V DATE OF EXAM: 11/18/2024 9:27 PM COMPARISON: Chest radiographs from 12/07/2023. CLINICAL INDICATION: Male, 59 years old with history of Chest Pain; TECHNIQUE: XR chest 2V Frontal and lateral views of the chest. FINDINGS: Lungs/Pleura: There is no evidence of pleural effusion, focal consolidation, or pneumothorax. Pulmonary vascularity: Unremarkable. Heart/mediastinum: Cardiomediastinal silhouette is unremarkable. Musculoskeletal: No acute osseous pathology. Right clavicle fixation hardware appears intact. IMPRESSION: No acute cardiopulmonary disease/process. [facility], , 11/18/2024 9:42 PM
[2024-11-18] MEDS: NITROGLYCERIN OINT 1 INCH/GM PACKET TOPICAL SCH (22:08)
[2024-11-18] MEDS: HEPARIN SOD,PORK IN 0.45% NACL 25,000 UNIT in 0.45% NACL 1 250ML.BAG IV SCH (22:11)
[2024-11-18] MEDS: HEPARIN SODIUM 1,000 UN/ML (10ML VL) IV ONE (22:11)
[2024-11-18] MEDS ORDERED: ACETAMINOPHEN TAB 325 MG TAB PO PRN (22:20)
[2024-11-18] MEDS ORDERED: NALOXONE 0.4 MG/ML 1 ML VIAL IV PRN (22:20)
[2024-11-18] MEDS ORDERED: ONDANSETRON 4 MG/2 ML VIAL IVP PRN (22:20)
--- NOTE | 2024-11-18 22:20 | ED ---
General Adult HPI - General Chief complaint: Chest Pain Stated complaint: Chest pain, left arm numbness Time Seen by Provider: 11/18/24 21:08 Source: patient, RN notes reviewed, old records reviewed Mode of arrival: ambulatory Limitations: no limitations - History of Present Illness Initial comments: Patient is a 59-year-old male who presents emergency department complaining of chest pain. Has a history of hypertension, hyperlipidemia, A-fib status post cardiac ablation approximately 6 months ago. Presents for further evaluation at this time over concern for chest pain. States that for 2 weeks he has been having intermittent substernal and left-sided chest pain. States is a pressure achy sensation. States that over the last few days that has been intermittently radiating to his neck into his left left shoulder. Was somewhat worse today which prompted him to come to the ER. No known palliative or provocative factors. States he is currently having the pain radiating to his left shoulder and somewhat to his neck. States it is a 5 out of 10. Did not attempt any medications at home for treatment. Presents for further evaluation at this time. Denies any history of cardiac stents. States he typically does run hypertensive with systolic blood pressures around 170. - Related Data Home Medications Medication Instructions Recorded Confirmed HYDROcodone/APAP 10-325MG [[place] 1 tab PO QID PRN 11/21/22 05/05/24 10-325] Losartan Potassium [Cozaar] 100 mg PO DAILY 11/21/22 05/05/24 Amiodarone [Cordarone] 200 mg PO DAILY 04/30/24 05/05/24 Cyclobenzaprine [Flexeril] 5 mg PO TID PRN 04/30/24 05/05/24 Rivaroxaban [Xarelto] 20 mg PO DAILY 04/30/24 05/05/24 Previous Rx's Medication Instructions Recorded Metoprolol Succinate (ER) [Toprol 25 mg PO BID #180 tab 12/07/23 XL] Allergies Allergy/AdvReac Type Severity Reaction Status Date / Time morphine AdvReac severe Verified 11/18/24 20:43 nausea and vomiting Review of Systems ROS Statement: Those systems with pertinent positive or pertinent negative responses have been documented in the HPI. Review of Systems: CONST: Denies fever EYES: Denies blurry vision ENT: Denies nasal congestion C/V: Endorses chest pain RESP: Denies shortness of breath GI: Denies abdominal pain : Denies dysuria SKIN: Denies rash. MSK: Denies joint pain. NEURO: Denies headache ROS Other: All systems not noted in ROS Statement are negative. Past Medical History Past Medical History: Atrial Fibrillation, Coronary Artery Disease (CAD), Hyperlipidemia, Hypertension, Sleep Apnea/CPAP/BIPAP Additional Past Medical History / Comment(s): SLEEP APNEA WITH BIPAP, RANULFO INGUINAL HERNIA'S, BACK PAIN. THORACIC AORTIC ANEURYSM, INFRARENAL AORTIC ANEURYSM Last Myocardial Infarction Date:: 2004 History of Any Multi-Drug Resistant Organisms: None Reported Past Surgical History: Back Surgery, Bariatric Surgery, Cholecystectomy, Heart Catheterization, Hernia Repair, Joint Replacement, Orthopedic Surgery Additional Past Surgical History / Comment(s): Cardiac cath-no PTCA d/t lesion position (treated medically by Dr. Vargas), left total knee replacement, total right hip replacement, back surgery X2 - 15 years ago and January 2016, plate in right femur., Ventral Hernia Repair (11/27/22), heart cath (12/19/22). Gastric sleeve 05/07/23, Past Anesthesia/Blood Transfusion Reactions: Previous Problems w/ Anesthesia, Postoperative Nausea & Vomiting (PONV) Additional Past Anesthesia/Blood Transfusion Reaction / Comment(s): Never received blood. Past Psychological History: Anxiety Smoking Status: Never smoker Past Alcohol Use History: Occasional Past Drug Use History: None Reported - Past Family History Father Family Medical History: Cancer Additional Family Medical History / Comment(s): in his 50s of unknown causes. Mother Family Medical History: Cancer Additional Family Medical History / Comment(s): of pancreatic cancer in her 50s. Brother(s) Family Medical History: Diabetes Mellitus Sister(s) Family Medical History: Cancer Additional Family Medical History / Comment(s): Breast cancer. General Exam - General Exam Comments Initial Comments: General: Appears in mild to moderate distress secondary to chest pain. HEAD: Normal with no signs of head trauma. EYES: PERRLA, EOMI, conjunctiva normal, no discharge. ENT: Hearing grossly intact, normal oropharynx. RESPIRATORY: Clear breath sounds bilaterally. No wheezes, rales, or rhonchi. C/V: Regular rate and rhythm. S1 and S2 auscultated, no edema, peripheral pulses 2+ and intact throughout. Chest pain is not reproducible on palpation. ABD: Abd is soft, nontender, nondistended EXT: Normal range of motion, no obvious deformity SKIN: No rashes or lesions observed on exposed skin. NEURO: Alert and oriented x 4. No focal deficits. Limitations: no limitations Course Vital Signs 11/18/24 11/18/24 11/18/24 20:40 20:55 20:56 Temperature 98.1 F Pulse Rate 73 72 Respiratory 18 22 Rate Blood Pressure 197/119 186/135 186/135 O2 Sat by Pulse 94 L 94 L Oximetry 11/18/24 11/18/24 11/18/24 21:19 21:43 22:07 Temperature Pulse Rate 75 73 61 Respiratory 18 20 20 Rate Blood Pressure 156/100 146/99 158/90 O2 Sat by Pulse 96 94 L 94 L Oximetry Medical Decision Making - Medical Decision Making Was pt. sent in by a medical professional or institution (, PA, CITY MAINTENANCE MANAGER, urgent care, hospital, or fpc...) When possible be specific @ -No Did you speak to anyone other than the patient for history (EMS, parent, family, police, friend...)? What history was obtained from this source @ -No Did you review nursing and triage notes (agree or disagree)? Why? @ -I reviewed and agree with nursing and triage notes Were old charts reviewed (outside hosp., previous admission, EMS record, old EKG, old radiological studies, urgent care reports/EKG's, fpc records)? Report findings @ -Today's EKG compared with EKGs from April 2024. No significant acute change. Differential Diagnosis (chest pain, altered mental status, abdominal pain women, abdominal pain men, vaginal bleeding, weakness, fever, dyspnea, syncope, headache, dizziness, GI bleed, back pain, seizure, CVA, palpatations, mental health, musculoskeletal)? @ -Differential Chest Pain: Stable Angina, Unstable Angina, STEMI, NSTEMI Aortic Dissection, Pneumothorax, Musculoskeletal, Esophageal Spasm GERD, Cholecystitis, Pancreatitis, Zoster, this is not meant to be an all-inclusive list. EKG interpreted by me (3pts min.). @ -As above X-rays interpreted by me (1pt min.). @ -Chest x-ray reveals no obvious acute cardiopulmonary process CT interpreted by me (1pt min.). @ -None done U/S interpreted by me (1pt. min.). @ -None done What testing was considered but not performed or refused? (CT, X-rays, U/S, labs)? Why? @ -None What meds were considered but not given or refused? Why? @ -None Did you discuss the management of the patient with other professionals (professionals i.e. Dr., PA, CITY MAINTENANCE MANAGER, lab, RT, psych nurse, social services counselor, forest management professor, teacher, signals officer, onsite case manager)? Give summary @ -Discussed with admitting provider, Dr. Neal who accepted the admission. Was smoking cessation discussed for >3mins.? @ -No Was critical care preformed (if so, how long)? @ -Yes, 32 minutes Were there social determinants of health that impacted care today? How? (Homelessness, low income, unemployed, alcoholism, drug addiction, transportation, low edu. Level, literacy, decrease access to med. care, residential, rehab)? @ -No Was there de-escalation of care discussed even if they declined (Discuss DNR or withdrawal of care, Hospice)? DNR status @ -No What co-morbidities impacted this encounter? (DM, HTN, Smoking, COPD, CAD, Cancer, CVA, ARF, Chemo, Hep., AIDS, mental health diagnosis, sleep apnea, morbid obesity)? @ -Hypertension, hyperlipidemia Was patient admitted / discharged? Hospital course, mention meds given and route, prescriptions, significant lab abnormalities, going to OR and other pertinent info. @ -Based on patient's presentation and physical exam, presents with chest pain. Somewhat typical ACS symptoms with radiation of the left shoulder and somewhat to the neck. Patient also presents hypertensive. Patient will be administered nitroglycerin tablets, total of 3 as well as 324 mg of aspirin. He was in agreement this plan. Vitals otherwise within acceptable limits. Chest x-ray returned unremarkable. EKG x 2 showed no obvious acute ischemic process. Laboratory studies returned remarkable for an undetectable troponin. On reevaluation, patient is feeling improved. Chest pain is down to nearly nonexistent following 3 nitroglycerin tablets. Blood pressure is also improved. Discussed with the patient and he was in agreement with plan for he parinization, as well as for admission. Patient will be made n.p.o. after midnight in the event that they do perform cardiac catheterization. He was in agreement this plan. Echo ordered. Cardiology consulted. I discussed the case with Dr. Neal who accepted the admission. Undiagnosed new problem with uncertain prognosis? @ -No Drug Therapy requiring intensive monitoring for toxicity (Heparin, Nitro, Insulin, Cardizem)? @ -Heparin Were any procedures done? @ -No Diagnosis/symptom? @ -Chest pain, unstable angina Acute, or Chronic, or Acute on Chronic? @ -Acute Uncomplicated (without systemic symptoms) or Complicated (systemic symptoms)? @ -Complicated Side effects of treatment? @ -No Exacerbation, Progression, or Severe Exacerbation? @ -No Poses a threat to life or bodily function? How? (Chest pain, USA, DC, pneumonia, PE, COPD, DKA, ARF, appy, cholecystitis, CVA, Diverticulitis, Homicidal, Suicidal, threat to staff... and all critical care pts) @ -Yes - Lab Data Result diagrams: 11/18/24 21:15 11/18/24 21:15 Lab Results 11/18/24 11/18/24 11/18/24 Range/Units 21:15 21:15 21:15 WBC 7.89 (4.50-10.00) 10*3/uL RBC 5.04 (4.40-5.60) 10*6/uL Hgb 16.2 (13.0-17.0) g/dL Hct 46.2 (39.6-50.0) % MCV 91.7 (80.0-97.0) fL MCH 32.1 H (27.0-32.0) pg MCHC 35.1 (32.0-37.0) g/dL Plt Count 218 (140-440) 10*3/uL MPV 9.3 L (9.5-12.2) fL Immature Gran % (Auto) 0.3 % Neutrophils % 68.4 % Lymphocytes % 19.3 % Monocytes % 9.1 % Eosinophils % 2.3 % Basophils % 0.6 % Immature Gran # 0.02 (0.00-0.04) 10*3/uL Neutrophils # 5.40 (1.80-7.70) 10*3/uL Lymphocytes # 1.52 (0.90-5.00) 10*3/uL Monocytes # 0.72 (0.20-1.00) 10*3/uL Eosinophils # 0.18 (0.04-0.35) 10*3/uL Basophils # 0.05 (0.00-0.10) 10*3/uL PT 11.3 (10.0-12.5) sec INR 1.0 (<1.2) APTT 24.0 (22.0-30.0) sec Sodium 137 (137-145) mmol/L Potassium 4.3 (3.5-5.1) mmol/L Chloride 101 (98-107) mmol/L Carbon Dioxide 26 (22-30) mmol/L Anion Gap 10 mmol/L BUN 12 (9-20) mg/dL Creatinine 0.88 (0.66-1.25) mg/dL Est GFR (CKD-EPI)AfAm >90 (>60 ml/min/1.73 sqM) Est GFR (CKD-EPI)NonAf >90 (>60 ml/min/1.73 sqM) Glucose 99 (74-99) mg/dL Calcium 9.4 (8.4-10.2) mg/dL Magnesium 1.6 (1.6-2.3) mg/dL Total Bilirubin 0.8 (0.2-1.3) mg/dL AST 46 (17-59) U/L ALT 36 (4-49) U/L Alkaline Phosphatase 64 (38-126) U/L Troponin I (0.000-0.034) ng/mL Total Protein 7.7 (6.3-8.2) g/dL Albumin 4.4 (3.5-5.0) g/dL 11/18/24 Range/Units 21:15 WBC (4.50-10.00) 10*3/uL RBC (4.40-5.60) 10*6/uL Hgb (13.0-17.0) g/dL Hct (39.6-50.0) % MCV (80.0-97.0) fL MCH (27.0-32.0) pg MCHC (32.0-37.0) g/dL Plt Count (140-440) 10*3/uL MPV (9.5-12.2) fL Immature Gran % (Auto) % Neutrophils % % Lymphocytes % % Monocytes % % Eosinophils % % Basophils % % Immature Gran # (0.00-0.04) 10*3/uL Neutrophils # (1.80-7.70) 10*3/uL Lymphocytes # (0.90-5.00) 10*3/uL Monocytes # (0.20-1.00) 10*3/uL Eosinophils # (0.04-0.35) 10*3/uL Basophils # (0.00-0.10) 10*3/uL PT (10.0-12.5) sec INR (<1.2) APTT (22.0-30.0) sec Sodium (137-145) mmol/L Potassium (3.5-5.1) mmol/L Chloride (98-107) mmol/L Carbon Dioxide (22-30) mmol/L Anion Gap mmol/L BUN (9-20) mg/dL Creatinine (0.66-1.25) mg/dL Est GFR (CKD-EPI)AfAm (>60 ml/min/1.73 sqM) Est GFR (CKD-EPI)NonAf (>60 ml/min/1.73 sqM) Glucose (74-99) mg/dL Calcium (8.4-10.2) mg/dL Magnesium (1.6-2.3) mg/dL Total Bilirubin (0.2-1.3) mg/dL AST (17-59) U/L ALT (4-49) U/L Alkaline Phosphatase (38-126) U/L Troponin I <0.012 (0.000-0.034) ng/mL Total Protein (6.3-8.2) g/dL Albumin (3.5-5.0) g/dL - EKG Data -: EKG Interpreted by Me EKG Comments: 12-lead Electrocardiogram Interpretation Note EKG was reviewed and interpreted by myself. 12-lead ECG performed at 2052 is interpreted by me as revealing normal sinus rhythm at a rate of 71 beats per minute. Right axis deviation. NJ interval is 163 ms, QRS duration is 150 ms, QTc is 482 ms.. There were no ST or T wave abnormalities to suggest myocardial ischemia or injury. R wave progression across the precordium was satisfactory. By my interpretation this EKG is non-diagnostic for acute ischemia. 12-lead Electrocardiogram Interpretation Note EKG was reviewed and interpreted by myself. 12-lead ECG performed at 2147 is interpreted by me as revealing normal sinus rhythm at a rate of 70 beats per minute. Indeterminate axis. NJ interval is 156 ms, QRS durations 165 ms, QTc is 495 ms. Right bundle branch block morphology.. There were no ST or T wave abnormalities to suggest myocardial ischemia or injury. R wave progression across the precordium was satisfactory. By my interpretation this EKG is non- diagnostic for acute ischemia. Compared to EKG with EKG from May 06, 2024 which is supposed cardiac ablation which redemonstrated the right bundle branch block morphology. Critical Care Time Critical Care Time: Yes Total Critical Care Time: 32 Disposition Clinical Impression: Chest pain, Unstable angina Disposition: ADMITTED IP TO THIS HOSP Condition: Stable Referrals: Taurus Neal MD [Primary Care Provider] - 1-2 days Time of Disposition: 22:10
[2024-11-18] MEDS: SODIUM CHLORIDE 0.9% 1,000 ML IV SCH (22:37)
[2024-11-19 04:06] LABS: Basophils # (A) 0.04 10*3/uL (0.00-0.10); Basophils % (A) 0.7 %; Eosinophils # (A) 0.13 10*3/uL (0.04-0.35); Eosinophils % (A) 2.1 %; HCT 40.9 % (39.6-50.0); HGB 14.1 g/dL (13.0-17.0); Lymphocytes # (A) 1.21 10*3/uL (0.90-5.00); Lymphocytes % (A) 19.8 %; MCH 32.6 pg (27.0-32.0); MCHC 34.5 g/dL (32.0-37.0); MCV 94.7 fL (80.0-97.0); Mean Platelet Volume 9.2 fL (9.5-12.2); Monocytes # (A) 0.52 10*3/uL (0.20-1.00); Monocytes % (A) 8.5 %; Neutrophils # (A) 4.17 10*3/uL (1.80-7.70); Neutrophils % (A) 68.4 %; Platelet Count 155 10*3/uL (140-440); RBC 4.32 10*6/uL (4.40-5.60); RDW 12.8 % (11.5-14.5)
[2024-11-19] MEDS: METOPROLOL SUCCINATE (ER) 25 MG TAB.ER.24H PO STA (04:11)
[2024-11-19 04:22] LABS: ALT 27 U/L (4-49); AST 33 U/L (17-59); African American GFR (CKD) >90 (>60 ml/min/1.73 sqM); Albumin 3.5 g/dL (3.5-5.0); Alkaline Phosphatase 52 U/L (38-126); Anion Gap 8 mmol/L; Blood Urea Nitrogen 13 mg/dL (9-20); Calcium 8.9 mg/dL (8.4-10.2); Carbon Dioxide 28 mmol/L (22-30); Chloride 100 mmol/L (98-107); Glucose 83 mg/dL (74-99); Non-African American GFR(CKD) >90 (>60 ml/min/1.73 sqM); Potassium 3.9 mmol/L (3.5-5.1); Sodium 136 mmol/L (137-145); Total Bilirubin 1.1 mg/dL (0.2-1.3); Total Protein 6.2 g/dL (6.3-8.2)
[2024-11-19 04:27] LABS: INR 1.2 (<1.2)
[2024-11-19] MEDS: HEPARIN SODIUM 1,000 UN/ML (10ML VL) IV PRN (04:57)
[2024-11-19] MEDS ORDERED: AMINOPHYLLINE 500 MG/20 ML VIAL IV PRN (08:48)
[2024-11-19] MEDS ORDERED: REGADENOSON 0.4 MG/5 ML SYRINGE IV PRN (08:48)
[2024-11-19] MEDS ORDERED: CAFFEINE CITRATE 60 MG/3 ML VIAL IV PRN (08:48)
[2024-11-19] MEDS: METOPROLOL SUCCINATE (ER) 25 MG TAB.ER.24H PO SCH ×2 (08:58→22:00)
[2024-11-19] MEDS: LOSARTAN 50 MG TAB PO SCH (09:04)
--- NOTE | 2024-11-19 10:34 | P.CRDCN ---
History of Present Illness History of present illness: HISTORY OF PRESENT ILLNESS: This is a 59-year-old male with a past medical history significant for hypertension, hyperlipidemia, thoracic aortic aneurysm, obstructive sleep apnea, atrial fibrillation, and frequent alcohol use. Patient follows in the office with Dr. Luis. We have been asked to see the patient in consultation for chest pain. Patient examined at the bedside in the emergency room. Patient presented to the hospital with a chief complaint of chest discomfort. He states he has been having chest pain on and off for the past 2 weeks. He states the pain is in the middle of his chest and goes into his left arm with numbness of the left arm. He also reports feeling short of breath with the pain as well. He reports having shortness of breath with exertion. He states the pain is not worse with movement and is not exertionally related. He denies any palpitations or heart fluttering. He continues to drink alcohol and states he drinks approximately a sixpack a week. Blood pressures have been elevated in the emergency room with a systolic greater than 160. Additionally, the patient was prescribed Xarelto on an outpatient basis for his atrial fibrillation. He states that he stopped taking this as he thought he was supposed to stop this and the amiodarone when he last saw his motor rebuilder. DIAGNOSTICS: - EKG reveals sinus mechanism with right bundle branch block.. - Chest xray negative for acute process. - Laboratory data: WBC 6.12. Hemoglobin 14.1. Platelet count 155. Sodium 136. Potassium 3.9. BUN 13. Creatinine 0.88. Troponin negative x 3. - Current home cardiac medications include losartan 100 mg at night and metoprolol succinate 25 mg twice a day. - Most recent echocardiogram obtained in November 2023 revealed ejection fraction 50 to 55%, mild MR, mild TR, no pericardial effusion - Cardiac catheterization history: November 2022 revealing relatively normal coronary arteries other than mid LAD 30% stenosis REVIEW OF SYSTEMS: At the time of my exam: CONSTITUTIONAL: Denies fever or chills. HEENT: Denies blurred vision, vision changes, or eye pain. Denies hemoptysis CARDIOVASCULAR: Denies chest pain. Denies orthopnea. Denies PND. Denies palpitations RESPIRATORY: Denies shortness of breath. GASTROINTESTINAL: Denies abdominal pain. Denies nausea or vomiting. HEMATOLOGIC: Denies bleeding disorders. GENITOURINARY: Denies any blood in urine. SKIN: Denies pruitis. Denies rash. PHYSICAL EXAM: VITAL SIGNS: Reviewed. GENERAL: Well-developed in no acute distress. HEENT: Head is normocephalic. Pupils are equal, round. Sclerae anicteric. Mucous membranes of the mouth are moist. Neck supple. No JVD or thyromegaly LUNGS: Respirations even and unlabored. Lungs essentially clear to auscultation bilaterally. HEART: Regular rate and rhythm. S1 and S2 heard. ABDOMEN: Soft. Nondistended. Nontender. EXTREMITIES: Normal range of motion. No clubbing or cyanosis. Peripheral pulses intact. No lower extremity edema NEUROLOGIC: Awake and alert. Oriented x 3. ASSESSMENT: Chest pain, troponin negative x 3 Hypertensive urgency Minimal coronary artery disease, mid LAD 30% stenosis, per cath in 11/2022 History of hypertension History of hyperlipidemia History of thoracic aortic aneurysm Obstructive sleep apnea Paroxysmal atrial fibrillation Frequent alcohol use Obesity: BMI 35.7 PLAN: An acute coronary event has been ruled out Obtain 2D echo to assess cardiac structure and function Discontinue IV heparin Begin Xarelto 20 mg in the evening Resume metoprolol and losartan Continue to monitor blood pressure Recommend abstinence from alcohol Patient to undergo Lexiscan stress test today If negative, patient may be discharged home from a cardiac standpoint and follow-up in the office with Dr. Luis Nurse practitioner note has been reviewed by physician. Signing provider agrees with the documented findings, assessment, and plan of care documented by BUSINESS AND SERVICES INSTRUCTOR as a scribe. Past Medical History Past Medical History: Atrial Fibrillation, Coronary Artery Disease (CAD), Hyperlipidemia, Hypertension, Sleep Apnea/CPAP/BIPAP Additional Past Medical History / Comment(s): SLEEP APNEA WITH BIPAP, RANULFO INGUINAL HERNIA'S, BACK PAIN. THORACIC AORTIC ANEURYSM, INFRARENAL AORTIC ANEURYSM Last Myocardial Infarction Date:: 2004 History of Any Multi-Drug Resistant Organisms: None Reported Past Surgical History: Back Surgery, Bariatric Surgery, Cholecystectomy, Heart Catheterization, Hernia Repair, Joint Replacement, Orthopedic Surgery Additional Past Surgical History / Comment(s): Cardiac cath-no PTCA d/t lesion position (treated medically by Dr. Vargas), left total knee replacement, total right hip replacement, back surgery X2 - 15 years ago and January 2016, plate in right femur., Ventral Hernia Repair (11/27/22), heart cath (12/19/22). Gastric sleeve 05/07/23, Past Anesthesia/Blood Transfusion Reactions: Previous Problems w/ Anesthesia, Po stoperative Nausea & Vomiting (PONV) Additional Past Anesthesia/Blood Transfusion Reaction / Comment(s): Never received blood. Past Psychological History: Anxiety Smoking Status: Never smoker Past Alcohol Use History: Occasional Past Drug Use History: None Reported - Past Family History Father Family Medical History: Cancer Additional Family Medical History / Comment(s): in his 50s of unknown causes. Mother Family Medical History: Cancer Additional Family Medical History / Comment(s): of pancreatic cancer in her 50s. Brother(s) Family Medical History: Diabetes Mellitus Sister(s) Family Medical History: Cancer Additional Family Medical History / Comment(s): Breast cancer. Medications and Allergies Home Medications Medication Instructions Recorded Confirmed Type HYDROcodone/APAP 10-325MG [[place] 1 tab PO QID PRN 11/21/22 11/19/24 History 10-325] Losartan Potassium [Cozaar] 100 mg PO HS 11/21/22 11/19/24 History Metoprolol Succinate (ER) [Toprol 25 mg PO BID #180 tab 12/07/23 11/19/24 Rx XL] Allergies Allergy/AdvReac Type Severity Reaction Status Date / Time morphine AdvReac severe Verified 11/19/24 07:09 nausea and vomiting Physical Exam Vitals: Vital Signs Temp Pulse Pulse Resp BP BP Pulse Ox 11/19/24 09:22 98.4 F 69 17 149/104 92 L 11/19/24 08:51 98.1 F 60 18 161/93 95 11/19/24 08:10 60 18 184/114 98 11/19/24 07:00 194/107 11/19/24 06:24 58 L 18 190/127 95 11/19/24 04:59 56 L 15 176/103 95 11/19/24 04:42 98.4 F 60 16 173/106 96 11/19/24 04:04 97.8 F 70 18 180/109 99 11/19/24 03:10 70 20 181/109 96 11/19/24 00:09 64 19 146/86 94 L 11/18/24 22:40 60 20 147/98 100 11/18/24 22:07 61 20 158/90 94 L 11/18/24 21:43 73 20 146/99 94 L 11/18/24 21:19 75 18 156/100 96 11/18/24 20:56 72 22 186/135 94 L 11/18/24 20:40 98.1 F 73 18 197/119 94 L Intake and Output 11/18/24 11/19/24 11/19/24 22:59 06:59 14:59 Intake Total 67.16 Output Total 300 Balance -232.84 Intake: Intake, IV Titration 67.16 Amount Heparin Sod,Pork in 0.45% 67.16 NaCl 25,000 unit In 0.45 % NaCl 1 250ml.bag @ 9.38 UNITS/KG/HR 9.999 mls/hr IV .Q24H [facility] Rx#: [id number] Output: Urine 300 Other: Voiding Method Toilet Weight 106.594 kg 106.594 kg Results 11/19/24 03:40 11/19/24 03:40 Cardiac Enzymes 11/18/24 11/18/24 11/19/24 Range/Units 21:15 21:15 00:29 AST 46 (17-59) U/L Troponin I <0.012 0.013 (0.000-0.034) ng/mL 11/19/24 11/19/24 Range/Units 03:40 03:40 AST 33 (17-59) U/L Troponin I <0.012 (0.000-0.034) ng/mL Coagulation 11/18/24 11/19/24 Range/Units 21:15 03:40 PT 11.3 13.0 H (10.0-12.5) sec APTT 24.0 33.0 H (22.0-30.0) sec CBC 11/18/24 11/19/24 Range/Units 21:15 03:40 WBC 7.89 6.10 (4.50-10.00) 10*3/uL RBC 5.04 4.32 L (4.40-5.60) 10*6/uL Hgb 16.2 14.1 (13.0-17.0) g/dL Hct 46.2 40.9 (39.6-50.0) % Plt Count 218 155 (140-440) 10*3/uL Comprehensive Metabolic Panel 11/18/24 11/19/24 Range/Units 21:15 03:40 Sodium 137 136 L (137-145) mmol/L Potassium 4.3 3.9 (3.5-5.1) mmol/L Chloride 101 100 (98-107) mmol/L Carbon Dioxide 26 28 (22-30) mmol/L BUN 12 13 (9-20) mg/dL Creatinine 0.88 0.88 (0.66-1.25) mg/dL Glucose 99 83 (74-99) mg/dL Calcium 9.4 8.9 (8.4-10.2) mg/dL AST 46 33 (17-59) U/L ALT 36 27 (4-49) U/L Alkaline Phosphatase 64 52 (38-126) U/L Total Protein 7.7 6.2 L (6.3-8.2) g/dL Albumin 4.4 3.5 (3.5-5.0) g/dL Current Medications Generic Name Dose Route Start Last Admin Trade Name Freq PRN Reason Stop Dose Admin Acetaminophen 650 mg 11/18/24 22:20 Acetaminophen Tab 325 Mg Tab PO Q6HR PRN Mild Pain or Fever > 100.5 Aminophylline 100 mg 11/19/24 08:48 Aminophylline 500 Mg/20 Ml Vial IV 11/19/24 12:49 ONCE PRN Patient Response Caffeine Citrate 60 mg 11/19/24 08:48 Caffeine Citrate 60 Mg/3 Ml Vial IV 11/19/24 12:49 ONCE PRN Patient Response Losartan Potassium 100 mg 11/19/24 09:15 11/19/24 09:04 Losartan 50 Mg Tab PO 100 mg DAILY TAD Administration Metoprolol Succinate 25 mg 11/19/24 21:00 Metoprolol Succinate (Er) 25 Mg Tab.Er.24h PO BID TAD Naloxone HCl 0.2 mg 11/18/24 22:20 Naloxone 0.4 Mg/Ml 1 Ml Vial IV Q2M PRN Opioid Reversal Ondansetron HCl 4 mg 11/18/24 22:20 Ondansetron 4 Mg/2 Ml Vial IVP Q8HR PRN Nausea And Vomiting Regadenoson 0.4 mg 11/19/24 08:48 Regadenoson 0.4 Mg/5 Ml Syringe IV 11/19/24 12:49 ONCE PRN Per Protocol Rivaroxaban 20 mg 11/19/24 17:30 Rivaroxaban 20 Mg Tab PO W/SUPPER [facility] Protocol Intake and Output 11/18/24 11/19/24 11/19/24 22:59 06:59 14:59 Intake Total 67.16 Output Total 300 Balance -232.84 Intake: Intake, IV Titration 67.16 Amount Heparin Sod,Pork in 0.45% 67.16 NaCl 25,000 unit In 0.45 % NaCl 1 250ml.bag @ 9.38 UNITS/KG/HR 9.999 mls/hr IV .Q24H [facility] Rx#: [id number] Output: Urine 300 Other: Voiding Method Toilet Weight 106.594 kg 106.594 kg Patient Weight 11/20/24 06:59 Weight 106.594 kg 11/19/24 03:40 11/19/24 03:40
--- NOTE | 2024-11-19 12:24 | NM ---
EXAMINATION TYPE: NM stress lexiscan cardiolite DATE OF EXAM: 11/19/2024 COMPARISON: 10/31/2010 CLINICAL INDICATION: Male, 59 years old with history of CP, TECHNIQUE: After the intravenous administration of 9.8 mCi Tc 99m Sestamibi - Cardiolite resting SPE CT images acquired 45 minutes post injection. At peak stress 25 mCi Tc 99m Sestamibi - Stress images obtained 42 minutes post injection The patient was stressed with 0.4mg Lexiscan. FINDINGS: There is mild diminished radiotracer along the mid anterolateral wall on stress images, whi ch is better perfusion on the resting images. A very small stress-induced ischemic change may be pres ent at this level. No fixed defects to suggest prior infarct. No moderate or large stress-induced isc hemic changes evident. Findings appear matched on SPECT and polar maps. There is some global hypokinesia. Some subtle dyskinesia of the distal anterior wall may be present. Ejection fraction is calculated to be 43 %. Normal greater than 50%. IMPRESSION: 1. . Tiny focal area of stress-induced ischemic change mid anterior lateral wall. 2. Global hypokinesia. Some minimal distal anterior wall dyskinesia may be present. 3. Low ejection fraction of 43%. [facility], , 11/19/2024 12:22 PM
--- NOTE | 2024-11-19 12:42 | CA ---
Lexiscan Nuclear Stress Test Report Name: Porfirio Lora Exam Date: 11/19/2024 10:23 Exam Location: [place] Stress Ht (in): 68 Wt (lb): 235 BSA: 2.19 Ordering Phys: Kathrine Renteria Referring Phys: LIAN,, Technologist: ROMY GALVEZ Age: 59 Gender: M : 1965 Procedure CPT: Indications: Reflex order-Stress test ICD-10 Codes: Patient History: CHEST PAIN, DIFFICULTY IN BREATHING, HTN, NUMBNESS IN FACE/NECK, PRIOR CATH Medications: SEE CHART,,,,, Meds past 24 hrs: Pretest Chest Pain: STRESS TEST Lexiscan Protocol Exercise Duration (min:sec): 02:[address] Depressions (mm): Angina Score: Pena Score: Resting HR (bpm): 63 Peak HR (bpm): 83 Resting BP (mmHg): 158 / 109 Peak BP (mmHg): 179 / 99 MPHR: 162 Target HR: 138 % MPHR: 51 METS: 1.0 Total Dose: Peak Dose: Atropine: Double Product: 52380 BP Response: Stress Termination: INFUSION COMPLETE Stress Symptoms: NO SYMPTOMS Stress Summary: ECG ANALYSIS Resting ECG: Sinus rhythm. No arrhythmias. Right bundle branch block and left anterior hemiblock. Stress ECG: No ECG changes from baseline with Lexiscan infusion. CONCLUSIONS No ECG evidence of ischemia with Lexiscan infusion. Nuclear test results to follow. Dr. Irena Tinoco MD (Electronically Signed) Final Date: 19 November 2024 12:41
[2024-11-19] MEDS: amLODIPine 5 MG TAB PO SCH ×2 (14:25→22:00)
[2024-11-19] MEDS: hydroCHLOROthiazide 25 MG TAB PO SCH (14:26)
--- NOTE | 2024-11-19 16:56 | CA ---
Transthoracic Echo Report Name: Porfirio Lora Age: 59 Gender: M : 1965 Exam Date: 11/19/2024 14:32 Exam Location: [place] Echo Ht (in): 68 Wt (lb): 235 Ordering Physician: Timothy Marquez MD Attending/Referring Phys: Receiving Clerk Nasreen Armas RDCS Procedure CPT: Indications: Chest Pain Cardiac Hx: Technical Quality: Fair Contrast 1: Total Dose (mL): Contrast 2: Total Dose (mL): MEASUREMENTS (Male / Female) Normal Values 2D ECHO LV Diastolic Diameter PLAX 5.8 cm 4.2 - 5.9 / 3.9 - 5.3 cm LV Systolic Diameter PLAX 3.9 cm IVS Diastolic Thickness 1.6 cm 0.6 - 1.0 / 0.6 - 0.9 cm LVPW Diastolic Thickness 1.6 cm 0.6 - 1.0 / 0.6 - 0.9 cm LV Relative Wall Thickness 0.6 LVOT Diameter 2.7 cm LV Diastolic Volume MOD BP 191.4 cm??? 67 - 155 / 56 - 104 cm??? LV Systolic Volume MOD BP 80.2 cm??? 22 - 58 / 19 - 49 cm??? LV Ejection Fraction MOD BP 58.1 % >= 55 % LV Cardiac Index MOD BP 3186.1 cm???/min???m??? LV Diastolic Volume MOD 4C 215.5 cm??? LV Systolic Volume MOD 4C 94.4 cm??? LV Ejection Fraction MOD 4C 56.2 % LV Cardiac Index MOD 4C 3469.3 cm???/min???m??? LV Diastolic Length 4C 9.5 cm LV Systolic Length 4C 8.7 cm LV Diastolic Volume MOD 2C 161.1 cm??? LV Systolic Volume MOD 2C 64.9 cm??? LV Ejection Fraction MOD 2C 59.7 % LV Cardiac Index MOD 2C 2758.6 cm???/min???m??? LV Diastolic Length 2C 9.0 cm LV Systolic Length 2C 8.2 cm LA Volume 106.6 cm??? 18 - 58 / 22 - 52 cm??? LA Volume Index 46.3 cm???/m??? 16 - 28 cm???/m??? DOPPLER AV Peak Velocity 183.4 cm/s AV Peak Gradient 13.5 mmHg AV Mean Velocity 122.7 cm/s AV Mean Gradient 6.8 mmHg AV Velocity Time Integral 36.4 cm LVOT Peak Velocity 126.8 cm/s LVOT Peak Gradient 6.4 mmHg LVOT Velocity Time Integral 25.9 cm LVOT Stroke Volume 143.7 cm??? LVOT Stroke Volume Index 65.7 ml/m??? LVOT Cardiac Index 4118.8 cm???/min???m??? AV Area Cont Eq vti 3.9 cm??? AV Area Cont Eq pk 3.8 cm??? MV Area PHT 2.4 cm??? Mitral E Point Velocity 41.9 cm/s Mitral A Point Velocity 68.5 cm/s Mitral E to A Ratio 0.6 MV Deceleration Time 318.8 ms PV Peak Velocity 99.0 cm/s PV Peak Gradient 3.9 mmHg FINDINGS Left Ventricle Left ventricular ejection fraction is estimated at 55-60 %. Normal left ventricular systolic function with no obvious regional wall motion abnormalities. Left ventricular cavity size normal. Moderately increased left ventricular wall thickness. Right Ventricle Mild right ventricular dilatation. Normal right ventricular global systolic function. Unable to estimate the right ventricular systolic pressure. Right Atrium Severe right atrial dilatation. Left Atrium Severely increased left atrial volume. Mildly increased left atrial area. Mitral Valve Mitral valve thickened. Mitral annular calcification. No evidence for mitral valve prolapse. Mild mitral stenosis. Trace mitral regurgitation. Aortic Valve Aortic valve not well visualized. No aortic stenosis. Mild aortic regurgitation. Tricuspid Valve Structurally normal tricuspid valve. No tricuspid stenosis. Mild tricuspid regurgitation. Pulmonic Valve Pulmonic valve not well visualized. No pulmonic stenosis. No pulmonic regurgitation. Pericardium No pericardial effusion. Aorta Normal size aortic root and proximal ascending aorta. CONCLUSIONS 1. Normal left ventricular size and systolic function 2. Mild mitral, aortic and tricuspid regurgitation Previewed by: Dr. Irena Tinoco MD (Electronically Signed) Final Date: 19 November 2024 16:55
[2024-11-19] MEDS ORDERED: RIVAROXABAN 20 MG TAB PO SCH (17:30)
[2024-11-19] MEDS ORDERED: LOSARTAN 50 MG TAB PO SCH (21:00)
--- NOTE | 2024-11-19 21:05 | PN ---
PROGRESS NOTE DATE OF SERVICE: 11/19/2024 CHIEF COMPLAINT: Chest pain. HISTORY OF PRESENT ILLNESS: This gentleman went down for further cardiac testing today. His blood pressure has been elevated. It is 149/105. PHYSICAL EXAMINATION: CHEST: Demonstrates decreased breath sounds. CARDIAC: Normal. ABDOMEN: Soft and protuberant. IMPRESSION: 1. Chest pain. 2. History of coronary artery disease. 3. History of atrial fibrillation. 4. Hypertension. PLAN: I will address his elevated blood pressure and await results of his cardiac test. MMODL / IJN: [id number] /
--- NOTE | 2024-11-20 02:05 | HP ---
HISTORY AND PHYSICAL CHIEF COMPLAINT: Chest pain for 2 weeks. HISTORY OF PRESENT ILLNESS: This is the first known admission for this 59-year-old white male. He does have a history of hypertension and it has not been controlled. About 2 weeks ago, he started to have intermittent discomfort in the anterior chest, which he described as a knot- like feeling. Then, it started to go up into the right side of his neck and then he felt some tingling in his left arm. He came to the emergency room. There, his blood work and enzymes and EKGs were essentially unremarkable. His blood pressure was very high. He was admitted as an acute coronary syndrome. He had noticed a little bit of sweatiness and shortness of breath with these events. REVIEW OF SYSTEMS: He has had no syncope, confusion, nausea, vomiting, cough, hemoptysis, sputum production, fever, chills, abdominal pain, nausea, vomiting, diarrhea, melena, hematochezia, jaundice, hepatitis, cirrhosis, frequency, urgency, dysuria, nocturia, incontinence, etc. Past medical history, family history, and personal and social histories reveal that he has had problems with alcohol issues in the past and may have had a dilated ascending aorta. He has been a smoker. He has hyperlipidemia and obesity. He is not allergic to any medication. It is reported that he had a previous myocardial infarction. He has had a cholecystectomy and a gastric sleeve. He does not smoke. PHYSICAL EXAMINATION: VITAL SIGNS: Blood pressure is 197/119. HEAD, EARS, EYES, NOSE, MOUTH, AND THROAT: Normal. NECK: Neck veins cannot be assessed. CHEST: Demonstrated scattered rales. CARDIAC: Demonstrated what sounded like sinus tachycardia. He has had an ablation for atrial fibrillation about 8 months ago. ABDOMEN: Soft and nontender without visceromegaly or masses and it is protuberant. EXTREMITIES: Normal. NEUROLOGICAL: He is intact. IMPRESSION: 1. Acute coronary syndrome. 2. Uncontrolled hypertension. 3. History of atrial fibrillation, managed with ablation. 4. Obesity. 5. Hyperlipidemia. PLAN: 1. Bedrest. 2. IV fluids. 3. Serial EKGs and enzymes. 4. Consult Cardiology. MMODL / IJN: [id number] /
[2024-11-20 07:47] VITALS: BP 149/93; PULSE 70; RESP 19; TEMP 98.2
[2024-11-20] MEDS ORDERED: RIVAROXABAN 20 MG TAB PO SCH (17:30)
--- NOTE | 2024-11-23 05:25 | CONS ---
CONSULTATION HISTORY OF PRESENT ILLNESS: This is a 59-year-old male, who follows in the office with Dr. Luis. The patient initially presented to the hospital with a chief complaint of chest pain. The patient underwent a Lexiscan stress test yesterday that revealed a very small area of possible ischemia. The images were reviewed by Dr. Tinoco and also case was discussed with Dr. Luis. No plans for cardiac catheterization. The patient also underwent echocardiogram revealing preserved LV systolic function. The patient examined this morning at the bedside. He denies any chest pain or pressure. He denies any shortness of breath. The patient's blood pressure is significantly improved from admission. The patient is hoping to be discharged home today. PHYSICAL EXAMINATION: VITAL SIGNS: Reviewed. GENERAL: The patient is well developed, in no acute distress. LUNGS: Clear with no crackles, rhonchi, or wheezing. HEART: S1, S2. No murmurs auscultated. ABDOMEN: Soft, nontender, nondistended. EXTREMITIES: No clubbing or cyanosis. Peripheral pulses intact. No lower extremity edema. NEUROLOGIC: The patient is awake and alert, oriented x3. ASSESSMENT: 1. Chest pain, acute coronary syndrome ruled out. 2. Hypertensive urgency, improved. 3. History of paroxysmal atrial fibrillation. PLAN: 1. The patient has been started on Xarelto for history of atrial fibrillation as the patient accidentally stopped taking this medication. 2. Continue additional cardiac medications including Norvasc twice a day, which has been started during this hospitalization. 3. The patient may be discharged home today from a cardiac standpoint and follow up in the office with Dr. Luis. RADIO TIME BUYER STATEMENT: Nurse practitioner note has been reviewed by physician, signing provider agrees with the above documentation which has been documented by RADIO TIME BUYER, acting as a scribe. MMODL / IJN: [id number] /
--- NOTE | 2024-11-23 05:26 | DS ---
DISCHARGE SUMMARY CHIEF COMPLAINT: Chest pain and hypertension. HISTORY OF PRESENT ILLNESS AND PHYSICAL EXAMINATION: Details of this man's history and physical can be found in the initial workup. LABORATORY STUDIES: While he is in a hospital, he had laboratory studies, details of which can be found in the laboratory section of his chart. COURSE IN THE HOSPITAL: After admission, he was placed on bedrest, started on intravenous fluids, and he had serial EKGs and enzymes. He was seen by Cardiology. His blood pressure was gradually brought under control. Stabilized and it was felt that he would be discharged and he will be followed up in the office for further testing. FINAL DIAGNOSES: 1. Acute coronary syndrome. 2. Uncontrolled hypertension. OPERATIONS: None. CONSULTATION: Cardiology. He has improved. MMODL / IJN: [id number] /
--- NOTE | 2024-11-23 10:45 | CDI ---
Documentation Clarification Form Date: 11/23/24 From: Lissette Tay Admit Date: 11/18/2024 10:20:00 PM Patient Name: Porfirio Lora Visit Number: [id number] Discharge Date: 11/20/2024 12:05:00 PM ATTENTION: The Clinical Documentation Specialists (CDI) and [facility] Coding Staff appreciate your assistance in clarifying documentation. Please respond to the clarification below the line at the bottom and electronically sign. The CDI & [facility] Coding staff will review the response and follow-up if needed. Please note: Queries are made part of the Legal Health Record. If you have any questions, please contact the author of this message via ITS. Doctor/Provider: Taurus Neal, Conflicting documentation has been found in the medical record. As attending physician, please provide clarification. Per cardiology consult 11/20 "acute coronary syndrome ruled out. Per your discharge "Acute coronary syndrome" History/Risk Factors: HTN, PAF, HLD, obesity, old [place], JEFF, Clinical Indicators: Presents with chest pain, intermittently radiating to his neck into his left shoulder. Treatment: ECHO-normal left ventricular size and systolic function, Nuclear stress test-No evidence of ischemia, Troponin I x 3-negative Please clarify which diagnosis is most appropriate: [ ] Acute Coronary Syndrome [ ] Acute Coronary syndrome Ruled Out [ ] CAD with Unstable Angina [ ] Other (please specify) [ ] Unable to determine MTDD
--- NOTE | 2024-11-24 10:16 | MISC ---
MISCELLANOUS REPORT Coronary artery disease with unstable angina. MMODL / IJN: [id number] /
== END 2024-11-20 12:05 | disposition home or self-care (01) ==
LOC: EC 20:36 → 6NMEDSUR 22:20 → UNDOADMIN 22:20 → 6NMEDSUR 22:21 → INTOOBSV 22:21 → 6NMEDSUR 11-19 06:03 → UNDODISIN 11-20 12:05
PROVIDERS: ADMIT Family Medicine; ATTEND Family Medicine
DX: I24.9 Acute ischemic heart disease, unspecified (principal); I16.0 Hypertensive urgency; I10 Essential (primary) hypertension; I25.110 Atherosclerotic heart disease of native coronary artery with unstable angina pectoris; I48.0 Paroxysmal atrial fibrillation; E78.5 Hyperlipidemia, unspecified; G47.33 Obstructive sleep apnea (adult) (pediatric); F41.9 Anxiety disorder, unspecified; I25.2 Old myocardial infarction; F10.90 Alcohol use, unspecified, uncomplicated; E66.9 Obesity, unspecified; Z68.35 Body mass index [BMI] 35.0-35.9, adult; Z79.01 Long term (current) use of anticoagulants; Z79.899 Other long term (current) drug therapy; Z88.5 Allergy status to narcotic agent
CPT/HCPCS: 96365; 96366 ×2; 99291; 36415; 93005; 93017; 93306; 80053 ×2; 83735; 84484 ×2; 85025 ×2; 85610 ×2; 85730 ×2; 71046; 78452; G0378 ×3; A9500; J1644 ×4; J2785; 96361

== ENCOUNTER → 2025-02-16 | Outpatient (CLI) | payer BC, MEDICARE ==
--- NOTE | 2025-02-16 08:31 | US ---
EXAMINATION TYPE: US liver DATE OF EXAM: 02/16/2025 COMPARISON: 09/12/2022 //// CLINICAL INDICATION: Male, 60 years old with history of R74.8 Elevated liver enzymes R55 Syncope; TECHNIQUE: Grayscale and color Doppler imaging of the right upper quadrant. FINDINGS: EXAM MEASUREMENTS: Liver Length: 16.4 cm Gallbladder Wall: Surgically absent cm CBD: 0.5 cm, color Doppler imaging was utilized to isolate the common bile duct for measurement. Right Kidney: 10.2x6.0x6.5 cm [employer] NOTES: limited exam due to pt body habitus &severe overlying bowel/gas Pancreas: Obscured by bowel gas Liver: Increased attenuation, decreased visualization of vessels suggestive of fatty infiltrate, tito y difficult to penetrate. There is a small hypoechoic area within the anterior left margin of the frank er measuring 0.7 x 0.6 x 0.6 cm. This may be a small hepatic cyst but cannot be classified as complet vicente simple. Monitoring with ultrasound is recommended. Gallbladder: Surgically absent Evidence for sonographic Weiss's sign: No CBD: slightly obscured by gas, partially visualized Right Kidney: No hydronephrosis or masses seen IMPRESSION: 1. Small suspected hepatic cyst. Follow-up with ultrasound is recommended. 2. Hepatomegaly with moderate fatty infiltration of liver. [facility], Workstation: [facility], 02/16/2025 8:28 AM
--- NOTE | 2025-02-16 11:15 | CT ---
EXAMINATION TYPE: CT head without contrast CT angio head neck DATE OF EXAM: 02/16/2025 9:16 AM COMPARISON: 09/13/2022 CLINICAL INDICATION: Male, 60 years old with history of R55 SYNCOPE AND COLLAPSE R74.8 ABNORMAL LEVEL S OF; TECHNIQUE: Initial noncontrast CT of the head with coronal and sagittal reconstructions. Axially acqu ired helical CT angiogram of the head and neck was obtained with contrast. Axial images are supplemen lizeth with 3D reconstructions and MIP images which were post-processed at an independent workstation. NASCET criteria used. Contrast used:130ML mL of Isovue 370 with IV Contrast, CT DLP: 2166.3 mGycm, Automated exposure control for dose reduction was used. FINDINGS: NONCONTRAST CT HEAD: No evidence for acute intracranial hemorrhage, acute ischemic change, mass, mass effect, midline shif t, or extra-axial fluid collection. No hydrocephalus. No effacement of cerebral sulci or basal subara chnoid cisterns. Azevedo-white matter differentiation is maintained. Mild patchy white matter hypodensities in both cerebral hemispheres. There is rightward posterior nasal septal deviation. Paranasal sinuses and mastoid air cells well pne umatized. Orbits and globes are intact. CTA HEAD: The bilateral vertebral and basilar arteries as well as the remainder of the posterior circulation ap pears patent. Patent bilateral posterior communicating arteries are seen. The bilateral internal carotid arteries as well as the remainder of the anterior circulation is paten t. Dural venous sinuses are patent. No aneurysmal change is seen. CTA NECK: Previous plate and screw fixation right clavicular shaft. Visualized upper lungs are clear. Mild atherosclerotic arch calcifications. 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 There is only a s hort segment of the V1/V2 junction left vertebral artery, axial image 49 of series 44 which appears n onenhanced normally due to the presence of beam hardening artifact. Otherwise, remainder of the bilat eral vertebral arteries are patent. Moderate atherosclerotic calcifications of the right carotid bifurcation with mild, less than 20% pro ximal right ICA narrowing. Remainder of their right ICA is patent. The graft mild atherosclerotic shikha cifications at the left carotid bulb contributing to mild, 10% proximal left ICA narrowing. Tortuous mid left ICA. IMPRESSION: NONCONTRAST CT HEAD: 1. Mild patchy burden of chronic small vessel ischemic disease. 2. No acute intracranial abnormality seen. CTA NECK: 3. 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 Short segment at the V1/V2 junction left vertebral artery which appears nonenhanced. Suspect this to be secondary to beam hardening artifact from the thoracic inlet rather than any abnormal narrowing. 4. Moderate atherosclerotic change of the right carotid bifurcation and mild within the left carotid bulb. No hemodynamically significant internal carotid artery stenosis on either side. CTA HEAD: 5. No large vessel intracranial arterial occlusion, significant stenosis, or aneurysmal change is see n. [facility], Workstation: [id number], 02/16/2025 11:12 AM
== END | disposition home or self-care (01) ==
LOC: RADUSWWP 07:18
PROVIDERS: ATTEND Family Medicine
DX: R16.0 Hepatomegaly, not elsewhere classified (principal); R55 Syncope and collapse; R74.8 Abnormal levels of other serum enzymes; K76.0 Fatty (change of) liver, not elsewhere classified; I67.82 Cerebral ischemia
CPT/HCPCS: 76705; 70496; 70498; Q9967

== ENCOUNTER → 2025-02-17 | Outpatient (CLI) | payer BC, MEDICARE ==
--- NOTE | 2025-02-17 16:52 | EEG ---
ELECTROENCEPHALOGRAM REPORT PREAMBLE: This is a 60-year-old male with syncopal spell. CURRENT MEDICATIONS: 1. Metoprolol. 2. Losartan. 3. HCTZ. 4. Xalrelto. 5. [place]. EEG FINDINGS: This is a 21-channel digital EEG recorded with video component, utilizing 10/20 international system with referential and bipolar montages. Background consists of well developed, well regulated moderate voltage activity in 9-10 hertz alpha. Background is posterior dominant and reactive to eye opening and closing. Photic driving response was not seen. Different stages of sleep were not seen. No focal or generalized epileptiform activity was seen. EKG channel showed no obvious arrhythmia. IMPRESSION: This is a normal awake and drowsy EEG. No focal, lateralized or epileptiform activity was seen. MMODL / IJN: [id number] /
== END ==
LOC: NEUROMAIN 07:32
PROVIDERS: ATTEND Family Medicine
DX: R55 Syncope and collapse (principal); R40.0 Somnolence; Z88.5 Allergy status to narcotic agent
CPT/HCPCS: 95816